=== PATIENT | male | born 1955 | race Caucasian/White ===

== ENCOUNTER 2023-05-16 14:50 | Inpatient (IN) | payer OTHER, MEDICARE, SELFPAY ==
[2023-05-16] VITALS (10 sets, daily range): BP systolic 109–125; BP diastolic 72–82; PULSE 100–130; RESP 14–24; TEMP 36–36.9; O2SAT 94–99; BMI 19.0
--- NOTE | ~2023-05-16 | CT_ITS ---
EXAMINATION: CT abdomen pelvis w con DATE: 05/16/2023 16:18 INDICATION: Abdominal pain. Nausea and vomiting. Recent colonoscopy. TECHNIQUE: Computed tomography (CT) of the abdomen and pelvis was performed with 100 mL Omnipaque 350 intravenous contrast. Automated exposure control and iterative reconstruction technique were employe d. The dose-length product was 410.79 mGy-cm. COMPARISON: None. FINDINGS: The visualized portions of the lung bases demonstrate mild atelectasis. No pleural effusion . The heart size is normal. There are coronary artery calcifications. No pericardial effusion. There are cysts in the liver measuring up to 8 mm. The gallbladder, spleen, pancreas, and adrenal glands ar e normal. There is a small sliding hiatal hernia. There are 2 stones in right kidney measuring up to 4 mm. There is a 4.4 cm cyst in left kidney. The appendix is normal. There are multiple dilated loops of small bowel. In the inferior peritoneum, there is a 16.3 x 5.6 x 4.7 cm fluid collection containi ng foci of gas with adjacent peritoneal thickening and enhancement, consistent with an abscess. There is calcified atherosclerosis of the aorta and many of the other arteries. There are no pathologicall y enlarged lymph nodes. There are bridging endplate osteophytes at multiple levels in the spine, cons istent with diffuse idiopathic skeletal hyperostosis (DISH). There is moderate lumbar spondylosis. IMPRESSION: 1. Abscess in the inferior peritoneum. CT-guided drainage is recommended. 2. Dilated small bowel, consistent with adynamic ileus. Reviewed, dictated and finalized at location B.
--- NOTE | ~2023-05-16 | XR_ITS ---
Supine and upright views of the abdomen Clinical history: Nausea and vomiting Findings: There are multiple dilated loops of small bowel. Left lower quadrant percutaneous drainage catheter present. No free air evident No abnormal mass lesion or calcification is seen. Osseous struc tures are intact. Impression: Dilated small bowel loops could reflect ileus versus small bowel obstruction. Left lower quadrant percutaneous drainage catheter. Reviewed, dictated and finalized at location . Impression: Dilated small bowel loops could reflect ileus versus small bowel obstruction. Left lower quadrant percutaneous drainage catheter.
--- NOTE | ~2023-05-16 | CT_ITS ---
EXAMINATION: CT guide absc cath placement DATE: 05/17/2023 12:45 INDICATION: Pelvic abscess TECHNIQUE: The procedure including the risks and benefits was discussed with the patient. Risks discu ssed included bleeding and infection. The patient understood the risks and benefits and agreed to pro ceed. The patient was confirmed to be receiving appropriate antibiotic coverage. The skin overlying the left buttock was prepped and draped in usual sterile fashion. A gestational sac provided with 50 mcg fentanyl IV. Anesthetic was administered with 1% lidocaine subcutaneously. A 18-gauge trochar ne edle was inserted into the peritoneal fluid collection by transgluteal approach utilizing CT guidance . The inner stylette was removed and a J-wire was advanced through the needle into the fluid collecti on with position confirmed by CT . The needle was removed over the wire and utilizing Seldinger techn ique the tract was serially dilated to 12 [place] and a 12 [place] catheter was inserted into the fluid collection over the wire. After confirmation of positioning by CT the loop was formed and locked and the metal stiffener and wire were removed. The catheter was stitched to the skin with suture. Antibi otic ointment and a sterile dressing were applied. An additional adhesive fixation device was applied . 50 mL of fluid was aspirated and sent to the lab for Gram stain and cultures. The catheter was jakob ched to suction drainage and was draining additional fluid at the conclusion of the procedure. There were no immediate complications. The dose-length product was 204.51 mGy-cm. FINDINGS: CT images demonstrate the catheter within the deep pelvic fluid collection. 50 mL of opaque reddish-pacheco fluid was aspirated for testing. IMPRESSION: 1. Successful CT-guided left transgluteal pelvic abscess drainage catheter placement. 2. 50 mL fluid was sent for aerobic and anaerobic cultures. 3. The catheter will be managed by Dr. Lara. Reviewed, dictated and finalized at location A. IMPRESSION: 1. Successful CT-guided left transgluteal pelvic abscess drainage catheter plac emyuval. 2. 50 mL fluid was sent for aerobic and anaerobic cultures. 3. The catheter will be managed by Dr. Lara.
--- NOTE | ~2023-05-16 | CT_ITS ---
EXAMINATION: CT guide absc cath placement DATE: 05/22/2023 14:38 INDICATION: Left lower quadrant abdominal abscess. TECHNIQUE: The procedure including the risks, benefits, and alternatives was discussed with the patie nt. Risks discussed included bleeding and infection. The patient understood the risks and benefits an d agreed to proceed. The skin overlying the abdomen was prepped and draped in usual sterile fashion. Anesthetic was administered with 1% lidocaine subcutaneously. An 18 gauge trochar needle was inserte d into the left lower quadrant abdominal abscess with CT guidance. The needle was exchanged over a wi re for 6 Nepalese, 8 Nepalese, and 9 Nepalese dilators and then for an 8.5 Nepalese pigtail catheter. The cat heter was stitched to the skin, and a sterile dressing was applied. The dose-length product was 173.7 0 mGy-cm. There were no immediate complications. FINDINGS: CT images demonstrate the catheter within the left lower quadrant abdominal abscess. 5 mL f luid was aspirated for testing. IMPRESSION: 1. Successful CT-guided left lower quadrant abdominal abscess drainage. 2. 5 mL pacheco fluid was sent for aerobic and anaerobic cultures. Reviewed, dictated and finalized at location A.
--- NOTE | ~2023-05-16 | CT_ITS ---
EXAMINATION: CT abdomen pelvis w con DATE: 05/22/2023 09:32 INDICATION: Intra-abdominal abscess. Leukocytosis. TECHNIQUE: Computed tomography (CT) of the abdomen and pelvis was performed with 100 mL Omnipaque 350 intravenous contrast. Automated exposure control and iterative reconstruction technique were employe d. The dose-length product was 662.93 mGy-cm. COMPARISON: CT abdomen and pelvis 05/16/2023 FINDINGS: The visualized portions of the lung bases demonstrate mild atelectasis. There are small ple ural effusions, right worse than left. The heart size is normal. There are coronary artery calcificat ions. No pericardial effusion. There is a small sliding hiatal hernia. There are cysts in the liver m easuring up to 5 mm. The spleen is normal. The gallbladder is normal in size. The pancreas and adrena l glands are normal. There are 2 stones in right kidney measuring up to 4 mm. There is a 3 mm stone i n left kidney. There is a 4.7 cm cyst in left kidney. The prostate is mildly enlarged. There are mult iple dilated loops of small bowel. There is a perisigmoid percutaneous drain. There is a 2.8 x 1.7 x 2.3 cm perirectal abscess. There is a 6.8 x 4.0 x 3.5 cm abscess in left anterior inferior peritoneum . There is a small volume of perihepatic ascites. There is calcified atherosclerosis of the aorta and many of the other arteries. There are no pathologically enlarged lymph nodes. There are bridging end plate osteophytes at multiple levels in the spine, consistent with diffuse idiopathic skeletal hypero stosis (DISH). There is mild chronic anterior wedging of multiple vertebral bodies. There is moderate lumbar spondylosis. IMPRESSION: 1. 6.8 x 4.0 x 3.5 cm abscess in left anterior inferior peritoneum. Consider CT-guided drain placemen t. 2. 2.8 x 1.7 x 2.3 cm perirectal abscess near the perisigmoid drain. 3. Small volume of perihepatic ascites. 4. Dilated loops of small bowel, consistent with adynamic ileus versus partial small bowel obstructio n. Reviewed, dictated and finalized at location A. IMPRESSION: 1. 6.8 x 4.0 x 3.5 cm abscess in left anterior inferior peritoneum. Consider CT -guided drain placement. 2. 2.8 x 1.7 x 2.3 cm perirectal abscess near the perisigmoid drain. 3. Small volume of perihepatic ascites. 4. Dilated loops of small bowel, consistent with adynamic ileus versus partial small bowel obstruction.
--- NOTE | 2023-05-16 15:17 | ECG_ITS ---
Rate 125 MO 143 QRSd 92 QT 322 QTc 465 --Embarrass-- P 58 QRS 14 T 85 SINUS TACHYCARDIA NONSPECIFIC T-WAVE ABNORMALITY ABNORMAL RHYTHM ECG Electronically Signed On 05-17-2023 8:48:12 CDT by Jennifer Sloan M.D. NO PREVIOUS ECG AVAILABLE FOR COMPARISON [facility]
--- NOTE | 2023-05-16 15:26 | ED.ABDPAIN ---
HPI - Abdominal Pain General Chief Complaint: Abdominal Pain Stated Complaint: Unspecified Time Seen by Provider: 05/16/23 15:22 History of Present Illness HPI narrative: Patient is a 68-year-old male with history of hypertension, hyperlipidemia here with abdominal pain. Patient had a colonoscopy 2 days ago on 05/14 at [facility], where they resected two polyps. Patient states that after the anesthesia felt fairly well, passed some flatulence and then attempted to go to the bathroom. He states he was sitting on the toilet and then suddenly and felt significant diffuse abdominal pain, diaphoresis and felt like she was going to fall off of the toilet. He denies any bowel movement at that time. He states that he went to the emergency department yesterday due to continuation of significant pain. Their CT was performed, identified some mesenteric adenitis and started patient on Cipro, Flagyl and discharged home. Today the pain worsened he had minimal urine output. He goes primary care doctor they referred him in here to the emergency department for evaluation. No fever, has had chills. His last p.o. intake was around 1:00 a.m. when he attempted to eat a popsicle but then immediately threw up. No prior abdominal surgeries. Related Data Allergies Allergy/AdvReac Type Severity Reaction Status Date / Time No Known Allergies Allergy Verified 05/16/23 15:40 Review of Systems Review of Systems: CONSTITUTIONAL: denies fever, has had chills and sweats. EYES: Denies visual changes, redness, or discharge. ENT: Denies rhinorrhea, congestion, sore throat, or otalgia. CARDIOVASCULAR: Denies chest pain, palpitations, or edema. RESPIRATORY: Denies cough or dyspnea. GASTROINTESTINAL: abdominal pain, nausea, vomiting, no diarrhea. GENITOURINARY: Denies dysuria or hematuria. SKIN: Denies rash or itching. MUSCULOSKELETAL: Denies back pain, joint pain, or myalgia. NEUROLOGIC: Denies headache, numbness, or weakness. PSYCHIATRIC: Denies anxiety or depression. Exam Narrative: GENERAL: Well-appearing, well-nourished, and in no acute distress. HEAD: Normocephalic, atraumatic. EYES: PERRLA and EOMI. ENT: Nares clear, no rhinorrhea or epistaxis. Mucous membranes moist. NECK: Supple. CHEST: Clear to auscultation. No respiratory distress. HEART: Tachycardia. No murmur heard. Normal peripheral pulses. ABDOMEN: Distended abdomen, diffusely tender with guarding EXTREMITIES: Normal range of motion. No edema. SKIN: Warm, dry, no rash. NEURO: No focal deficits. Alert and oriented x3. PSYCH: Normal mood and affect. Course Course Emergency Course: Chart review performed. I did speak with patient's PCP prior to transfer as well. Patient had colonoscopy at [place] 2 days ago, was seen post operatively for pain, started on antibiotics. Given continued pain and no talent acquisition administrator surgeon after 5 PM should one be needed, he was referred to this hospital instead of [facility]. Triage vitals show heart rate of 127, normotensive. Patient seen evaluated, and significant pain. Abdomen distended, diffusely tender. Concern for possible perforation versus intra-abdominal infectious process. Pain medications are Ativan ordered as well as IV fluid resuscitation. CT abdomen pelvis ordered. Lab work reviewed, white blood cell count of 14.3, creatinine of 1.7, unknown baseline. Lactic of 2.5. Troponin negative. CT shows intraperitoneal abscess and ileus. Will talk with surgery talent acquisition administrator. Zosyn, additional pain meds, additional IVF ordered. Spoke with Dr. Lara, recommends admission, will talk with hospitalist. Patient and updated on plan of care and agreeable. Spoke with Shaye of hospitalist service who accepts the patient for admission. Consultations Consultation #1: Spoke with Dr. Lara, talent acquisition administrator for general surgery. Recommends patient remain NPO. He is going to discuss case with IR and see if someone could place a drain tonight if not tomorro
[2023-05-16] MEDS: MORPHINE SULFATE (*CRX) 4 MG/ML INJ IV PUSH ×2 (15:37→17:56)
[2023-05-16] MEDS: ONDANSETRON INJ 4 MG/2 ML VIAL IV PUSH ×3 (15:37→21:51)
[2023-05-16] MEDS: Please add drug allergy info to patient profile. 1 EACH XX (15:38)
[2023-05-16] MEDS: SODIUM CHLORIDE 0.9% IV 1,000 ML 999 ML IV CONT ×2 (15:38→17:56)
[2023-05-16 15:51] LABS: Hematocrit 39.1 % (42.0-52.0); Hemoglobin 13.3 g/dL (14.0-18.0); Mean Corpuscular Hemoglobin 31.4 pg (26-34); Mean Corpuscular Volume 92.4 fl (80-100); Mean Platelet Volume 10.8 fl (7.4-10.4); Platelet Count Result 198 k/mm3 (150-375); Red Blood Count 4.23 M/mm3 (4.6-6.20); Red Cell Distribution Width 13.5 % (11.5-14.5); White Blood Count 14.3 K/mm3 (4.5-10.0)
[2023-05-16 16:01] LABS: Alanine Aminotransferase 24 U/L (6-50); Albumin Level 3.8 g/dL (3.5-5.1); Alkaline Phosphatase 49 U/L (38-126); Anion Gap 11 mmol/L (8-16); Aspartate Amino Transferase 30 U/L (17-59); Bilirubin,Total 0.8 mg/dL (0.2-1.3); Blood Urea Nitrogen 92 mg/dL (9-20); Calcium 8.9 mg/dL (8.4-10.2); Carbon Dioxide 26 mmol/L (22-30); Chloride 96 mmol/L (98-107); Estimated CRCL calculation 44 ml/min; Estimated Glomerular Filt Rate 41; Glucose 138 mg/dL (65-110); Lactic Acid Reflex 2.5 mmol/L (0.7-2.0); Lipase 79 U/L (23-300); Potassium 3.6 mmol/L (3.4-5.0); Sodium 133 mmol/L (137-145)
[2023-05-16 16:02] LABS: INR 1.3; Prothrombin Time 16.7 Seconds (11.1-14.7)
[2023-05-16 16:03] LABS: Partial Thromboplastin Time 32.6 SECONDS (22.3-36.8)
[2023-05-16 16:12] LABS: Troponin I < 0.012 ng/mL (0.000-0.034)
[2023-05-16 16:22] LABS: Band Neutrophils Percent 2 % (0-6); Burr Cells 1+ (NORMAL); Lymphocytes Absolute Manual 1.85 K/mm3 (1.1-4.5); Monocytes Absolute Manual 0.57 K/mm3 (0.1-0.90); Monocytes Percent Manual 4 % (3-9); Neutrophils Absolute Manual 11.86 K/mm3 (1.3-6.7); Neutrophils Percent Manual 81 % (46-73); Platelet Estimate Adequate (Adequate); Schistocytes None Seen (NORMAL); Total Cells Counted 100
[2023-05-16 17:51] LABS: Appearance Urine Clear (Clear); Bacteria Urine None Seen /hpf; Bilirubin Urine Negative (Negative); Blood Urine Negative (Negative); Color Urine Yellow (Yellow); Glucose Urine UA Negative (Negative); Hyaline Casts Urine Present /lpf; Ketones Urine Negative (Negative); Leukocyte Esterase Ur Trace LEU/UL (Negative); Need Manual Microscopic Reviewed; Nitrate Urine Negative (Negative); Protein Urine 1+ mg/dL (Negative); RBC Urine 0-2 /hpf (0-2); Specific Grav Ur 1.034 (1.001-1.035); Squamous Epithelial Cell Urine None seen /hpf (Few); Urobilinogen Urine 0.2 mg/dL (<2.0); WBC Urine 0-5 /hpf
[2023-05-16 17:57] LABS: Add Urine Microscopic? YES
[2023-05-16] MEDS: PIPERACILLIN/TAZ 4.5G/NS 100ML 4.5 GM/100 ML BAG IVPB (18:24)
[2023-05-16 18:45] LABS: Reflex Lactic Acid Yes or No Add Lactic
[2023-05-16 19:10] LABS: Lactic Acid 1.5 mmol/L (0.7-2.0)
--- NOTE | 2023-05-16 19:38 | ADMGEN ---
This patient, Robin Pickering, was admitted to [facility] Surg Room 315-01. Patient/family oriented to hospital policies and general routines including ID bracelet, bed and alarms, visiting hours, pain management, procedures, bathroom and other care routines, personal items, smoking policy, room service/diet, and visiting hours. Information on how to activate the Rapid Response Team has been discussed. Patient/Family are encouraged to report perceived risks to care and to ask questions if they do not understand what they are told or what they should do.
--- NOTE | 2023-05-16 20:38 | PM.IMHP ---
H&P: HPI History of Present Illness Date/Time: 05/16/23 20:38 Chief Complaint: Abdominal pain Narrative: This is a 68-year-old male patient who recently had a colonoscopy 2 days ago on 05/14 at [facility]. The patient had 2 polyps removed at that time. The patient has a history of hyperlipidemia and hypertension. After his procedure the patient felt fairly well and was passing lot of gas then attempted to go to the bathroom. The patient was sitting on the toilet and suddenly felt significant diffuse abdominal pain the patient became diaphoretic and felt like he was on fall off the toilet onto the floor. The patient denies any bowel movement since that time. The patient went to the emergency room yesterday due to these significant pains a CT was performed and it showed a mesenteric adenitis and the patient was started on Cipro and Flagyl and discharged to home. His pain became worse and had decreased urine output as well. He called his primary care doctor who referred him to the emergency department. The him that he drink anything was around this morning. He denies any previous renal failure. The patient has been on lisinopril with hydrochlorothiazide. The patient has been nauseated as well. His white count is 14.3. H&H is 13.3 and 39.1. BUN is 92 creatinine is 1.7. No previous labs for comparison. His lactic was 2.5 and is now 1.5. Troponin is negative. Urine was negative. Abdominal pelvis CT was read as abscess inferior peritoneal CT-guided drainage is recommended. Dilated small bowel, consistent with adynamic ileus. Surgery has been consulted and suggested that IR drain the abscess. The patient was given IV fluids, morphine, Zofran, and Zosyn. The patient is being admitted to observation status on the date of service 05/16/2023 Review of Systems Review of Systems: All systems reviewed & are unremarkable except as noted in HPI and below Constitutional: Constitutional: Reports as per HPI and Reports no additional constitutional complaints Eyes: Eyes: Reports as per HPI and Reports no additional eye complaints ENT: Reports system reviewed and no additional complaints, except as documented and Reports Normal hearing present Cardiovascular: Cardiovascular: Reports no additional cardiovascular complaints Respiratory: Respiratory: Reports no additional respiratory complaints and Reports no additional respiratory complaints Gastrointestinal: Gastrointestinal: Reports as per HPI and Reports no additional gastrointestinal complaints Musculoskeletal: Musculoskeletal: Reports no additional musculoskeletal complaints Integumentary/Breasts: Skin/Breast: Reports system reviewed and no additional complaints, except as docu and Reports as per HPI Neurologic: Reports system reviewed and no additional complaints, except as documented, Reports as per HPI and Reports Normal hearing present Psychiatric: Psychiatric: Reports no additional psychiatric complaints and Reports as per HPI Endocrine: Endocrine: Reports no additional endocrine complaints Hematologic/Lymphatic: Hematologic/Lymphatic: Reports no additional hematologic/lymphatic complaints Allergic/Immunologic: Allergic/Immunologic: Reports no additional allergic/immunologic complaints [facility] Past Medical History Medical History (Updated 05/16/23 @ 21:30 by Shaye Mckeon NP) Hyperlipidemia Hypertension Surgical History Surgical History (Updated 05/16/23 @ 21:30 by Shaye Mckeon NP) H/O colonoscopy with polypectomy History of extraction of renal calculus History of total knee arthroplasty Bilateral Family History Family History (Updated 05/16/23 @ 20:55 by Kori Reed RN) Mother Chronic obstructive pulmonary disease Father Liver cancer Social History Social History (Updated 05/16/23 @ 21:31 by Shaye Mckeon NP) Social History: The patient is and lives with his . They have 1 child together. He is retired. His
[2023-05-16] MEDS: MORPHINE SULFATE (*CRX) 2 MG/ML INJ IV PUSH (21:50)
[2023-05-16] MEDS: LACTATED RINGERS 1,000 ML 100 ML IV CONT (21:51)
[2023-05-17] VITALS (31 sets, daily range): BP systolic 101–140; BP diastolic 57–89; PULSE 85–125; RESP 12–30; TEMP 36.1–37.5; O2SAT 92–99
[2023-05-17] MEDS: MORPHINE SULFATE (*CRX) 2 MG/ML INJ IV PUSH ×5 (02:51→20:49)
[2023-05-17] MEDS: ONDANSETRON INJ 4 MG/2 ML VIAL IV PUSH ×3 (02:51→20:49)
[2023-05-17] MEDS: LACTATED RINGERS 1,000 ML 150 ML IV CONT (04:37)
[2023-05-17 06:04] LABS: Hematocrit 31.4 % (42.0-52.0); Hemoglobin 10.5 g/dL (14.0-18.0); Mean Corpuscular HGB Conc 33.4 g/dl (32-36); Mean Corpuscular Hemoglobin 31.5 pg (26-34); Mean Corpuscular Volume 94.3 fl (80-100); Mean Platelet Volume 10.1 fl (7.4-10.4); Platelet Count Result 152 k/mm3 (150-375); Red Blood Count 3.33 M/mm3 (4.6-6.20); Red Cell Distribution Width 13.7 % (11.5-14.5); White Blood Count 11.6 K/mm3 (4.5-10.0)
[2023-05-17 06:16] LABS: Lactic Acid Reflex 1.5 mmol/L (0.7-2.0)
[2023-05-17 06:20] LABS: Alanine Aminotransferase 19 U/L (6-50); Albumin Level 2.9 g/dL (3.5-5.1); Alkaline Phosphatase 43 U/L (38-126); Anion Gap 1 mmol/L (8-16); Aspartate Amino Transferase 21 U/L (17-59); Bilirubin,Total 0.7 mg/dL (0.2-1.3); Blood Urea Nitrogen 62 mg/dL (9-20); Calcium 8.1 mg/dL (8.4-10.2); Carbon Dioxide 31 mmol/L (22-30); Chloride 103 mmol/L (98-107); Estimated CRCL calculation 43 ml/min; Estimated Glomerular Filt Rate 51; Glucose 123 mg/dL (65-110); Magnesium 2.1 mg/dL (1.6-2.3); Potassium 3.4 mmol/L (3.4-5.0); Sodium 135 mmol/L (137-145)
[2023-05-17 06:42] LABS: Band Neutrophils Percent 13 % (0-6); Burr Cells 1+ (NORMAL); Eosinophils Absolute Manual 0.23 K/mm3 (0.02-0.5); Eosinophils Percent Manual 2 % (0-4); Lymphocytes Absolute Manual 0.34 K/mm3 (1.1-4.5); Monocytes Absolute Manual 1.27 K/mm3 (0.1-0.90); Monocytes Percent Manual 11 % (3-9); Neutrophils Absolute Manual 9.74 K/mm3 (1.3-6.7); Neutrophils Percent Manual 71 % (46-73); Platelet Estimate Adequate (Adequate); Schistocytes None Seen (NORMAL); Total Cells Counted 100
--- NOTE | 2023-05-17 10:41 | WPDMODSED ---
Moderate Sedation Note-Pt Data Patient Data Diagnosis: pelvic abscess Present Complaint: abdominal pain and nausea Procedure to be performed/Plan: pelvic abscess drain placement Allergies Allergy/AdvReac Type Severity Reaction Status Date / Time No Known Allergies Allergy Verified 05/16/23 15:40 Home Medications Medication Instructions Recorded Confirmed Type atorvastatin 40 mg tablet (Lipitor) 40 mg PO HS 05/16/23 05/16/23 History atorvastatin 40 mg tablet (Lipitor) 40 mg PO HS 05/16/23 05/16/23 History lisinopril 20 1 tablet PO HS 05/16/23 05/16/23 History mg-hydrochlorothiazide 25 mg tablet lisinopril-hydrochlorothiazide 1 mg BYMOUTH HS 05/16/23 05/16/23 History loratadine 10 mg tablet (Allergy 1 mg PO DAILY 05/16/23 05/16/23 History Relief (loratadine)) loratadine 10 mg tablet (Claritin) 10 mg PO DAILY 05/16/23 05/16/23 History Current Medications: Active Medications Acetaminophen (Acetaminophen 325 Mg Tablet) 650 mg PO Q6H PRN PRN Reason: Mild Pain (1-3) or Fever Lactated Ringer's (Lr - Lactated Ringers Iv) 1,000 mls @ 100 mls/hr IV CONT .Q10H POOJA Last Admin: 05/17/23 09:37 Dose: Not Given Piperacillin/Tazobactam/Dextrose (Zosyn 3.375 Gm/Ns 50 Ml) 3.375 gm in 50 mls @ 100 mls/hr IVPB Q6HR POOJA Morphine Sulfate (Morphine Sulfate (*Crx) 2 Mg/Ml Inj) 2 mg IV PUSH Q4H PRN PRN Reason: Pain Rated 7-10 Last Admin: 05/17/23 07:07 Dose: 2 mg Ondansetron HCl (Ondansetron Inj 4 Mg/2 Ml Vial) 4 mg IV PUSH Q4H PRN PRN Reason: Nausea And Vomiting Last Admin: 05/17/23 07:07 Dose: 4 mg Sedation/Anesthesia: No previous sedation/anesthesia problems (including family history). PMFSH Past Medical History Medical History (Updated 05/16/23 @ 21:30 by Shaye Mckeon NP) Hyperlipidemia Hypertension Surgical History Surgical History (Updated 05/16/23 @ 21:30 by Shaye Mckeon NP) H/O colonoscopy with polypectomy History of extraction of renal calculus History of total knee arthroplasty Bilateral Family History Family History (Updated 05/16/23 @ 20:55 by Kori Reed RN) Mother Chronic obstructive pulmonary disease Father Liver cancer Social History Social History (Updated 05/16/23 @ 21:31 by Shaye Mckeon NP) Social History: The patient is and lives with his . They have 1 child together. He is retired. His is the durable power lacing cutter for healthcare. Code status full code Smoking status: Never smoker Alcohol intake: never Substance use: never Lack of Transportation: No Lack of Food: Never True Current Housing: I Have Housing Concerned About Future Housing: No Difficulty Paying Gas/Electric Bills: No Difficulty Paying for Meds: No Currently Unemployed: No Education: High School Diploma/GED Difficulty w/ Childcare or Family Care: No Spiritual care concerns: No Mod Sed Physical Exam Physical Exam Pre Procedural Exam: Normal: Appearance, Lungs, Heart Rate and Heart Rhythm and Variation: Throat (dry mucous membranes) and Abdomen (TTP) Hours since solid foods: 24 Hours since liquid intake: 24 Mallampati Classification: class III Internal Medicine - PN: Obj Da Vital Signs Vital Signs: Vital Signs - 24 hr 05/16/23 14:50 05/16/23 16:42 05/16/23 15:41 Temperature 98.4 F Pulse Rate 127 H 118 H 130 H Respiratory Rate 24 H 18 22 H Blood Pressure 125/82 Pulse Oximetry 96 96 98 Oxygen Delivery Room Air 05/16/23 15:45 05/16/23 16:05 05/16/23 18:25 Temperature Pulse Rate 118 H 107 H 106 H Respiratory Rate 19 18 14 Blood Pressure 109/81 115/72 Pulse Oximetry 94 98 99 Oxygen Delivery 05/16/23 19:27 05/16/23 20:00 05/16/23 22:00 Temperature 96.8 F L Pulse Rate 100 108 H 108 H Respiratory Rate 15 14 Blood Pressure 115/75 112/73 Pulse Oximetry 99 98 Oxygen Delivery 05/16/23 20:54 05/17/23 04:00 05/17/23 06:00 Temperature 96.9 F L Pulse Rate 129 H 93 96 Resp
--- NOTE | 2023-05-17 11:34 | PM.IMPN ---
Progress Note: A&P Assessment and Plan (1) Abscess, intra-abdominal, postoperative: Code(s): T81.43XA - Infection following a procedure, organ and space surgical site, initial encounter Status: Acute Assessment and Plan: CT-guided drainage catheter placed and patient is on IV Zosyn. General surgery on board as well as Interventional Radiology. (2) AALIYAH (acute kidney injury): Code(s): N17.9 - Acute kidney failure, unspecified Status: Acute Assessment and Plan: Likely related to recent bowel prep and relative NPO status prior to hospitalization. Improving after IV fluids given in the emergency department. Continue to trend. Continue IV fluids until patient tolerating normal (3) Hypertension: Code(s): I10 - Essential (primary) hypertension Status: Acute Assessment and Plan: Home medications on hold continue to monitor. (4) Hyperlipidemia: Code(s): E78.5 - Hyperlipidemia, unspecified Status: Acute Assessment and Plan: Home medications but will restart whenever tolerating diet. Plan Pain control post CT-guided drainage she placement. Further intervention deferred to surgery. Time Spent With Patient Time with patient: 15 - 25 minutes Subjective Date/time seen: 05/17/23 13:45 Interval history: 05/17: Patient admitted yesterday for intra-abdominal abscess, possibly related to recent colonoscopy. He went to Interventional Radiology for CT-guided drainage catheter placement. Patient complaining of significant pain and nausea after procedure. Due to pain patient not interested in further evaluation or questions until his pain is controlled. I spoke to patient's regarding typical course of care for the situations. Deferred to General surgery for further dispo planning. Review of Systems Review of Systems: ROS unobtainable: Yes unobtainable due to medical condition Exam Narrative: GENERAL: Patient arriving to the floor from procedure in significant discomfort not wanting to participate in exam at this time HEENT: Covered with towel due to nausea NECK: The patient has no noted JVD. CHEST/LUNGS: Lungs are clear bilaterally without rhonchi, rales, or wheezes. HEART: The patient has mildly tachycardic rate and regular rhythm. No murmurs, rubs, or gallops are appreciated. ABDOMEN: The patient?s abdomen is tender to palpation, remaining assessment deferred at this time EXTREMITIES: The patient has no peripheral edema. SKIN: No significant bleeding wounds PSYCHIATRIC: The patient is upset regarding pain NEUROLOGIC: Awake, uncomfortable, moving all extremities Objective Data Vital Signs Vital Signs: Vital Signs - 24 hr 05/16/23 14:50 05/16/23 16:42 05/16/23 15:41 Temperature 36.9 C Pulse Rate 127 H 118 H 130 H Respiratory Rate 24 H 18 22 H Blood Pressure 125/82 Pulse Oximetry 96 96 98 Oxygen Delivery Room Air 05/16/23 15:45 05/16/23 16:05 05/16/23 18:25 Temperature Pulse Rate 118 H 107 H 106 H Respiratory Rate 19 18 14 Blood Pressure 109/81 115/72 Pulse Oximetry 94 98 99 Oxygen Delivery 05/16/23 19:27 05/16/23 20:00 05/16/23 22:00 Temperature 36.0 C L Pulse Rate 100 108 H 108 H Respiratory Rate 15 14 Blood Pressure 115/75 112/73 Pulse Oximetry 99 98 Oxygen Delivery 05/16/23 20:54 05/17/23 04:00 05/17/23 06:00 Temperature 36.1 C L Pulse Rate 129 H 93 96 Respiratory Rate 16 Blood Pressure 115/57 L Pulse Oximetry 98 Oxygen Delivery Intake/Output Intake/Output: Intake & Output 05/14/23 05/15/23 05/16/23 05/17/23 23:59 23:59 23:59 23:59 Intake Total 2100 Balance 2100 Meds/Results Medications: Active Medications Generic Name Dose Route Start Last Admin Trade Name Freq PRN Reason Stop Dose Admin Acetaminophen 650 mg 05/16/23 21:37 Acetaminophen 325 Mg Tablet PO Q6H PRN Mild Pain (1-3) or Fever Lactated Ringer's 1,000 mls @ 100 mls/hr 08
[2023-05-17] MEDS: PIPERACILLN/TAZ 3.375GM/NS50ML 3.375 GM/50 ML BAG IVPB ×3 (13:02→23:25)
--- NOTE | 2023-05-17 13:46 | PC.NURSE ---
RN to assist at bedside medication administration in CT for drain placement. RN received report via telephone from WILMER Petit with the med-surg department at 1015. Past medical history, last set of vitals, current assessment and all medications given was reported. Patient has been NPO.
--- NOTE | 2023-05-17 13:52 | PC.NURSE ---
RN present at bedside in CT room with patient at 1020 to assist with medication administration for percutaneous drain placement. RN to set up vital sign monitoring and continuous capnography. RN preformed head to toe assessment at bedside and verified patient by asking name and .
--- NOTE | 2023-05-17 13:54 | PC.NURSE ---
50 mcg of Fentanyl given IV push at 1120 per Verbal orders at bedside per Dr. Magdaleno. Respiratory rate noted to be 18, SPO2 92% on 2L NC and EtCO2 noted to be 31 mmHg.
--- NOTE | 2023-05-17 13:57 | PC.NURSE ---
Percutaneous drain placement done at 1156. RN to continue monitoring patients vitals and EtCO2. Patient awake, and oriented at this time.
--- NOTE | 2023-05-17 14:00 | PC.NURSE ---
Patient brought back to med-surg department at 1239 via bed. Bedside report handed off to WILMER Petit. Marisabel to resume patient care.
--- NOTE | 2023-05-17 14:39 | PM.CNGS ---
Assessment and Plan Assessment and plan (1) Abscess, intra-abdominal, postoperative: Code(s): T81.43XA - Infection following a procedure, organ and space surgical site, initial encounter Status: Acute Assessment and Plan: I have reviewed the CT and discussed the findings with the patient. He has evidence of a bowel perforation from his colonoscopy 2 days ago at an outside facility. The infection appears to be walled off as an early abscess and was successfully percutaneously drained by Interventional Radiology today. Will continue to monitor with serial abdominal exams and continue IV Zosyn and bowel rest. Repeat CBC tomorrow. Discussed with patient that if he is not showing any signs of improvement, will have to consider urgent surgical intervention. This could include bowel resection and even could include open surgery or a temporary ostomy. (2) Perforation of colon as colonoscopy complication: Code(s): K63.1 - Perforation of intestine (nontraumatic); K91.71 - Accidental puncture and laceration of a digestive system organ or structure during a digestive system procedure Status: Acute (3) AALIYAH (acute kidney injury): Code(s): N17.9 - Acute kidney failure, unspecified Status: Acute (4) Hypertension: Code(s): I10 - Essential (primary) hypertension Status: Acute History of Present Illness Consult details Consult date: 05/17/23 Reason for consult: other (Bowel perforation) Requesting physician: Helena Fischer MD Narrative: This is a 68-year-old man who I am asked to see for a complication after recent colonoscopy. He presented to the emergency department on 05/16/2023 with severe diffuse abdominal pain. He reportedly had undergone colonoscopy at [facility] on 05/14/2023. He states he began experiencing pain within an hours the procedure. He had 2 polyps removed, but I do not have the full report available to me here. He was having the colonoscopy done simply as a screening. He was not complaining of any hematochezia, melena, or bowel problems leading up to this. He had gone to the emergency department at [place] on 05/15/[address] at that time showed possible enteritis. He was sent home from the ER on Cipro and Flagyl. He then decided to come to our ER when he was not feeling any better. A CT was done in the emergency department and this showed evidence of an abscess in the inferior peritoneum and dilated bowel consistent with adynamic ileus. Exact site of bowel perforation was not evident on the CT. He has been admitted to the hospital and placed on IV Zosyn. CT-guided drainage of the abscess was performed by Interventional Radiology earlier today. Patient states he is still experiencing significant abdominal pain. He is thirsty, but is still experiencing nausea. He denies any fevers. Review of Systems Review of Systems: All systems reviewed & are unremarkable except as noted in HPI and below Eyes: Eyes: Denies change in vision ENT: Denies hearing loss, Denies neck pain and Denies sore throat Cardiovascular: Cardiovascular: Denies chest pain and Denies dyspnea Respiratory: Respiratory: Denies cough, Denies dyspnea and Denies wheezing Gastrointestinal: Gastrointestinal: Reports as per HPI Genitourinary: Genitourinary: Denies hematuria and Denies dysuria Musculoskeletal: Musculoskeletal: Denies arthralgias, Denies joint swelling and Denies neck pain Allergic/Immunologic: Allergic/Immunologic: Denies wheezing [facility] Past Medical History Medical History (Updated 05/17/23 @ 14:45 by Kirill Lara DO) Hyperlipidemia Hypertension Surgical History Surgical History (Updated 05/16/23 @ 21:30 by Shaye Mckeon NP) H/O colonoscopy with polypectomy History of extraction of renal calculus History of total knee arthroplasty Bilateral Family History Family History (Updated 05/16/23 @ 20:55 by Kori Reed RN) Mother Chronic obstructiv
[2023-05-17] MEDS: ACETAMINOPHEN 325 MG TABLET 650 MG PO (22:06)
[2023-05-18] VITALS (11 sets, daily range): BP systolic 113–127; BP diastolic 59–70; PULSE 76–102; RESP 16–20; TEMP 36.8–37.6; O2SAT 94–98
[2023-05-18] MEDS: ONDANSETRON INJ 4 MG/2 ML VIAL IV PUSH ×3 (01:13→20:35)
[2023-05-18] MEDS: MORPHINE SULFATE (*CRX) 2 MG/ML INJ IV PUSH ×3 (01:13→09:00)
[2023-05-18] MEDS: LACTATED RINGERS 1,000 ML 150 ML IV CONT ×3 (02:29→20:44)
[2023-05-18] MEDS: PIPERACILLN/TAZ 3.375GM/NS50ML 3.375 GM/50 ML BAG IVPB ×3 (05:03→17:18)
[2023-05-18 06:22] LABS: Basophils Percent Auto 0.2 % (0.2-1.2); Eosinophils Absolute Auto 0.1 K/mm3 (0-0.3); Eosinophils Percent Auto 0.6 % (0-4.4); Hematocrit 28.2 % (42.0-52.0); Hemoglobin 9.1 g/dL (14.0-18.0); Immature Granulocyte Absolute 0.11 K/mm3 (0.00-0.031); Immature Granulocyte Percent A 1.2 % (0-0.5); Lymphocytes Absolute Auto 0.94 K/mm3 (0.9-3.2); Lymphocytes Percent Auto 10.5 % (18.3-44.2); Mean Corpuscular HGB Conc 32.3 g/dl (32-36); Mean Corpuscular Hemoglobin 30.8 pg (26-34); Mean Corpuscular Volume 95.6 fl (80-100); Mean Platelet Volume 9.9 fl (7.4-10.4); Monocytes Absolute Auto 0.5 K/mm3 (0.1-0.6); Neutrophils Absolute Auto 7.3 K/mm3 (1.3-6.7); Neutrophils Percent Auto 81.5 % (45.5-73.1); Platelet Count Result 138 k/mm3 (150-375); Red Blood Count 2.95 M/mm3 (4.6-6.20); Red Cell Distribution Width 13.9 % (11.5-14.5)
[2023-05-18 06:36] LABS: Sodium 139 mmol/L (137-145)
[2023-05-18 06:40] LABS: Anion Gap -1 mmol/L (8-16); Blood Urea Nitrogen 36 mg/dL (9-20); Calcium 8.2 mg/dL (8.4-10.2); Carbon Dioxide 32 mmol/L (22-30); Chloride 108 mmol/L (98-107); Estimated CRCL calculation 50 ml/min; Estimated Glomerular Filt Rate > 60; Glucose 123 mg/dL (65-110); Potassium 3.6 mmol/L (3.4-5.0)
--- NOTE | 2023-05-18 09:55 | PM.PNGS ---
Progress Note: A&P Assessment and Plan (1) Abscess, intra-abdominal, postoperative: Code(s): T81.43XA - Infection following a procedure, organ and space surgical site, initial encounter Status: Acute Assessment and Plan: Showing signs of improvement. Will start clear liquids today. Continue Zosyn and monitor drain output. (2) Perforation of colon as colonoscopy complication: Code(s): K63.1 - Perforation of intestine (nontraumatic); K91.71 - Accidental puncture and laceration of a digestive system organ or structure during a digestive system procedure Status: Acute (3) AALIYAH (acute kidney injury): Code(s): N17.9 - Acute kidney failure, unspecified Status: Acute (4) Hypertension: Code(s): I10 - Essential (primary) hypertension Status: Acute Subjective Subjective Date/Time Seen: 05/18/23 09:55 Interval history: Pain improving. Minimal nausea. Passing flatus. Exam GI: Inspection: non-distended GI Palp: Yes Soft to palpation, Yes Tenderness to palpation present (GI) (RLQ), No Guarding due to palpation present (GI) and No Rebound tenderness present Other: Pigtail drain with minimal purulent output Objective Data Vital Signs Vital Signs: Vital Signs - 24 hr 05/17/23 11:56 05/17/23 10:29 05/17/23 10:29 Temperature Pulse Rate 98 Pulse Rate [Apical] 108 H 98 Respiratory Rate 12 25 H 25 H Blood Pressure 135/82 Blood Pressure [Left Arm] 119/60 Pulse Oximetry 99 97 97 Oxygen Delivery Nasal Cannula Room Air Oxygen Flow Rate 2 05/17/23 10:33 05/17/23 10:29 05/17/23 12:00 Temperature Pulse Rate 98 Pulse Rate [Apical] 97 115 H Respiratory Rate 20 25 H Blood Pressure Blood Pressure [Left Arm] 129/75 108/61 Pulse Oximetry 97 99 Oxygen Delivery Room Air Room Air Oxygen Flow Rate 05/17/23 12:05 05/17/23 12:10 05/17/23 12:15 Temperature Pulse Rate Pulse Rate [Apical] 116 H 125 H 106 H Respiratory Rate 20 24 H 30 H Blood Pressure Blood Pressure [Left Arm] 120/64 125/80 131/86 Pulse Oximetry 97 98 94 Oxygen Delivery Room Air Room Air Room Air Oxygen Flow Rate 05/17/23 12:20 05/17/23 12:26 05/17/23 10:33 Temperature Pulse Rate 99 Pulse Rate [Apical] 108 H 109 H Respiratory Rate 22 H 23 H 20 Blood Pressure 129/75 Blood Pressure [Left Arm] 140/84 135/89 Pulse Oximetry 99 98 97 Oxygen Delivery Room Air Room Air Oxygen Flow Rate 05/17/23 10:59 05/17/23 11:00 05/17/23 11:18 Temperature Pulse Rate 105 H 111 H 109 H Pulse Rate [Apical] Respiratory Rate 14 18 23 H Blood Pressure 111/64 116/61 113/63 Blood Pressure [Left Arm] Pulse Oximetry 93 95 93 Oxygen Delivery Oxygen Flow Rate 05/17/23 11:20 05/17/23 11:25 05/17/23 11:30 Temperature Pulse Rate 108 H 107 H 108 H Pulse Rate [Apical] Respiratory Rate 18 21 H 19 Blood Pressure 117/64 103/59 L 101/62 Blood Pressure [Left Arm] Pulse Oximetry 92 95 96 Oxygen Delivery Oxygen Flow Rate 05/17/23 11:35 05/17/23 11:40 05/17/23 11:45 Temperature Pulse Rate 106 H 106 H 105 H Pulse Rate [Apical] Respiratory Rate 18 24 H 24 H Blood Pressure 108/59 L 121/64 117/65 Blood Pressure [Left Arm] Pulse Oximetry 98 98 98 Oxygen Delivery Oxygen Flow Rate 05/17/23 11:50 05/17/23 11:55 05/17/23 12:00 Temperature Pulse Rate 111 H 114 H 115 H Pulse Rate [Apical] Respiratory Rate 20 24 H 25 H Blood Pressure 115/67 116/59 L 108/61 Blood Pressure [Left Arm] Pulse Oximetry 99 99 99 Oxygen Delivery Oxygen Flow Rate 05/17/23 12:05 05/17/23 12:10 05/17/23 12:15 Temperature Pulse Rate 116 H 125 H 106 H Pulse Rate [Apical] Respiratory Rate 20 24 H 30 H Blood Pressure 120/64 125/80 131/86 Blood Pressure [Left Arm] Pulse Oximetry 97 98 94 Oxygen Delivery Oxygen Flow Rate 05/17/23 12:20 05/17/23 12:26 05/17/23 10:59 Temperature Pulse Rate 108 H 109 H
--- NOTE | 2023-05-18 13:29 | PM.IMPN ---
Progress Note: A&P Assessment and Plan (1) Abscess, intra-abdominal, postoperative: Code(s): T81.43XA - Infection following a procedure, organ and space surgical site, initial encounter Status: Acute Assessment and Plan: CT-guided drainage catheter placed and patient is on IV Zosyn. General surgery on board as well as Interventional Radiology. 05/18: Pigtail drainage catheter in place, pain improved, passing gas (2) AALIYAH (acute kidney injury): Code(s): N17.9 - Acute kidney failure, unspecified Status: Acute Assessment and Plan: 05/17: Likely related to recent bowel prep and relative NPO status prior to hospitalization. Improving after IV fluids given in the emergency department. Continue to trend. Continue IV fluids until patient tolerating normal 05/18: Much improved with serum creatinine 1.2 BUN 36 and estimated GFR greater than 60. IV fluids decreased and patient allowed a clear liquid diet (3) Hypertension: Code(s): I10 - Essential (primary) hypertension Status: Acute Assessment and Plan: Home medications on hold continue to monitor. (4) Hyperlipidemia: Code(s): E78.5 - Hyperlipidemia, unspecified Status: Acute Assessment and Plan: Home medications but will restart whenever tolerating diet. Stable without treatment at this time. Blood pressure reviewed on 05/18 Plan Pain control post CT-guided drainage placement. Further intervention deferred to surgery. Time Spent With Patient Time with patient: 15 - 25 minutes Subjective Date/time seen: 05/18/23 13:29 Interval history: 05/17: Patient admitted yesterday for intra-abdominal abscess, possibly related to recent colonoscopy. He went to Interventional Radiology for CT-guided drainage catheter placement. Patient complaining of significant pain and nausea after procedure. Due to pain patient not interested in further evaluation or questions until his pain is controlled. I spoke to patient's regarding typical course of care for the situations. Deferred to General surgery for further dispo planning. 05/18: Patient seen today had to be removed to private room as he was not able to tolerate a roommate. Pain is better today. Drainage tube in place. He is passing gas overnight. Surgery has advanced diet. Review of Systems Review of Systems: All systems reviewed & are unremarkable except as noted in HPI and below Eyes: Eyes: Denies change in vision ENT: Denies hearing loss, Denies neck pain and Denies sore throat Cardiovascular: Cardiovascular: Denies chest pain and Denies dyspnea Respiratory: Respiratory: Denies cough, Denies dyspnea and Denies wheezing Gastrointestinal: Gastrointestinal: Reports as per HPI Genitourinary: Genitourinary: Denies hematuria and Denies dysuria Musculoskeletal: Musculoskeletal: Denies arthralgias, Denies joint swelling and Denies neck pain Allergic/Immunologic: Allergic/Immunologic: Denies wheezing Exam Narrative: GENERAL: Patient is alert and oriented exhibiting some signs of pain but much improved from yesterday HEENT: Pupils PERRL, EOMI, moist mucous membranes NECK: The patient has no noted JVD. CHEST/LUNGS: Lungs are clear bilaterally without rhonchi, rales, or wheezes. HEART: Regular rate and regular rhythm. No murmurs, rubs, or gallops are appreciated. ABDOMEN: The patient?s abdomen is tender to palpation, more focal on the right lower quadrant. Pigtail drain in place with small amount of purulence drainage. EXTREMITIES: The patient has no peripheral edema. SKIN: No significant bleeding wounds PSYCHIATRIC: Improved mood, pain adverse NEUROLOGIC: Awake, alert, able to move all extremities equally 5/5 strength Objective Data Vital Signs Vital Signs: Vital Signs - 24 hr 05/17/23 14:00 05/17/23 20:00 05/17/23 21:35 Temperature 36.8 C 37.5 C Pulse Rate 119 H 119 H 102 H Respiratory Rate 12 12 20 Blood Pressure 123/77 128/74 Pu
[2023-05-18] MEDS: ACETAMINOPHEN 325 MG TABLET 650 MG PO (15:14)
[2023-05-18] MEDS: PANTOPRAZOLE SODIUM IV 40 MG VIAL 80 MG IV PUSH (17:18)
[2023-05-18 17:23] LABS: Hematocrit 29.3 % (42.0-52.0); Hemoglobin 9.4 g/dL (14.0-18.0); Mean Corpuscular HGB Conc 32.1 g/dl (32-36); Mean Corpuscular Volume 96.7 fl (80-100); Platelet Count Result 156 k/mm3 (150-375); Red Blood Count 3.03 M/mm3 (4.6-6.20); White Blood Count 10.2 K/mm3 (4.5-10.0)
[2023-05-19] VITALS (10 sets, daily range): BP systolic 117–133; BP diastolic 63–69; PULSE 71–88; RESP 18; TEMP 36.4–37.6; O2SAT 97–99
[2023-05-19] MEDS: PIPERACILLN/TAZ 3.375GM/NS50ML 3.375 GM/50 ML BAG IVPB ×5 (00:13→23:58)
[2023-05-19 04:27] LABS: IFOB Positive Control Positive; Immunochemical Fecal Occult Bl Negative (N)
[2023-05-19 06:30] LABS: Basophils Percent Auto 0.4 % (0.2-1.2); Eosinophils Absolute Auto 0.1 K/mm3 (0-0.3); Eosinophils Percent Auto 0.5 % (0-4.4); Hematocrit 29.8 % (42.0-52.0); Hemoglobin 9.4 g/dL (14.0-18.0); Immature Granulocyte Absolute 0.28 K/mm3 (0.00-0.031); Immature Granulocyte Percent A 2.8 % (0-0.5); Lymphocytes Absolute Auto 1.23 K/mm3 (0.9-3.2); Lymphocytes Percent Auto 12.2 % (18.3-44.2); Mean Corpuscular HGB Conc 31.5 g/dl (32-36); Mean Corpuscular Hemoglobin 30.9 pg (26-34); Mean Platelet Volume 9.9 fl (7.4-10.4); Monocytes Absolute Auto 0.8 K/mm3 (0.1-0.6); Monocytes Percent Auto 7.9 % (2.6-8.5); Neutrophils Absolute Auto 7.7 K/mm3 (1.3-6.7); Neutrophils Percent Auto 76.2 % (45.5-73.1); Platelet Count Result 170 k/mm3 (150-375); Red Blood Count 3.04 M/mm3 (4.6-6.20); Red Cell Distribution Width 13.9 % (11.5-14.5); White Blood Count 10.1 K/mm3 (4.5-10.0)
[2023-05-19 06:39] LABS: Potassium 3.5 mmol/L (3.4-5.0)
[2023-05-19 06:42] LABS: Anion Gap -1 mmol/L (8-16); Blood Urea Nitrogen 33 mg/dL (9-20); Calcium 8.5 mg/dL (8.4-10.2); Carbon Dioxide 32 mmol/L (22-30); Chloride 107 mmol/L (98-107); Estimated CRCL calculation 50 ml/min; Estimated Glomerular Filt Rate > 60; Glucose 118 mg/dL (65-110); Sodium 138 mmol/L (137-145)
[2023-05-19] MEDS: PANTOPRAZOLE SODIUM IV 40 MG VIAL IV PUSH ×2 (08:38→20:34)
--- NOTE | 2023-05-19 11:05 | PM.IMPN ---
Progress Note: A&P Assessment and Plan (1) Abscess, intra-abdominal, postoperative: Code(s): T81.43XA - Infection following a procedure, organ and space surgical site, initial encounter Status: Acute Assessment and Plan: CT-guided drainage catheter placed and patient is on IV Zosyn. General surgery on board as well as Interventional Radiology. 05/18: Pigtail drainage catheter in place, pain improved, passing gas (2) Intractable nausea and vomiting: Code(s): R11.2 - Nausea with vomiting, unspecified Status: Acute Assessment and Plan: 05/18: Despite receiving Zofran 3 times a day patient having trouble advancing diet and vomited overnight. He states he has the weakest stomach ever. Added IV haloperidol p.r.n. (3) AALIYAH (acute kidney injury): Code(s): N17.9 - Acute kidney failure, unspecified Status: Acute Assessment and Plan: 05/17: Likely related to recent bowel prep and relative NPO status prior to hospitalization. Improving after IV fluids given in the emergency department. Continue to trend. Continue IV fluids until patient tolerating normal 05/18: Much improved with serum creatinine 1.2 BUN 36 and estimated GFR greater than 60. IV fluids decreased and patient allowed a clear liquid diet 05/19: Patient still on IV antibiotics because he is not tolerating diet very well. Renal function same as yesterday. (4) Hypertension: Code(s): I10 - Essential (primary) hypertension Status: Acute Assessment and Plan: Home medications on hold continue to monitor. Stable blood pressures without medication. Blood pressure reviewed on 05/19 (5) Hyperlipidemia: Code(s): E78.5 - Hyperlipidemia, unspecified Status: Acute Assessment and Plan: Home medications but will restart whenever tolerating full diet. Plan Add IV haloperidol due to continue nausea and vomiting. Would like to use metoclopramide instead but concerned about this activating severe anxiety for this patient. Time Spent With Patient Time with patient: 25 - 35 minutes Subjective Date/time seen: 05/19/23 11:05 Interval history: 05/17: Patient admitted yesterday for intra-abdominal abscess, possibly related to recent colonoscopy. He went to Interventional Radiology for CT-guided drainage catheter placement. Patient complaining of significant pain and nausea after procedure. Due to pain patient not interested in further evaluation or questions until his pain is controlled. I spoke to patient's regarding typical course of care for the situations. Deferred to General surgery for further dispo planning. 05/18: Patient seen today had to be removed to private room as he was not able to tolerate a roommate. Pain is better today. Drainage tube in place. He is passing gas overnight. Surgery has advanced diet. 05/19: Patient seen today states that he had vomiting overnight concerned he had GI bleeding but Hemoccult was negative. Patient believes that his stomach is still irritated from 8 in a seizure he had when he had his colonoscopy 2 days before admission. Review of Systems Review of Systems: All systems reviewed & are unremarkable except as noted in HPI and below Exam Narrative: GENERAL: Patient is alert and oriented exhibiting some signs of pain but mostly complaining about nausea and vomiting HEENT: Pupils PERRL, EOMI, moist mucous membranes NECK: The patient has no noted JVD. CHEST/LUNGS: Lungs are clear bilaterally without rhonchi, rales, or wheezes. HEART: Regular rate and regular rhythm. No murmurs, rubs, or gallops are appreciated. ABDOMEN: The patient?s abdomen is tender to palpation, more focal on the right lower quadrant. Pigtail drain in place with small amount of purulence drainage. EXTREMITIES: The patient has no peripheral edema. SKIN: No significant bleeding wounds PSYCHIATRIC: Improved mood, pain averse NEUROLOGIC: Awake, alert, able to move all extremities
[2023-05-19] MEDS: HALOPERIDOL LACTATE 5 MG/ML VIAL 2.5 MG IV PUSH ×2 (11:32→20:33)
[2023-05-19] MEDS: LORATADINE 10 MG TABLET PO (11:39)
[2023-05-19] MEDS: LACTATED RINGERS 1,000 ML 150 ML IV CONT (11:39)
--- NOTE | 2023-05-19 15:29 | PM.PNGS ---
Progress Note: A&P Assessment and Plan (1) Abscess, intra-abdominal, postoperative: Code(s): T81.43XA - Infection following a procedure, organ and space surgical site, initial encounter Status: Acute Assessment and Plan: Showing signs of improvement. Still having nausea and occasional vomiting. Continue clear liquids today. Continue Zosyn and monitor drain output. Will get KUB in AM. (2) Perforation of colon as colonoscopy complication: Code(s): K63.1 - Perforation of intestine (nontraumatic); K91.71 - Accidental puncture and laceration of a digestive system organ or structure during a digestive system procedure Status: Acute (3) AALIYAH (acute kidney injury): Code(s): N17.9 - Acute kidney failure, unspecified Status: Acute (4) Hypertension: Code(s): I10 - Essential (primary) hypertension Status: Acute Subjective Subjective Date/Time Seen: 05/19/23 15:29 Interval history: Still having nausea and occasional vomiting. Bowels moving and passing flatus. Pain improved. Exam GI: Inspection: non-distended GI Palp: Yes Soft to palpation, Yes Tenderness to palpation present (GI) (RLQ), No Guarding due to palpation present (GI) and No Rebound tenderness present Other: Pigtail drain with minimal serous output Objective Data Vital Signs Vital Signs: Vital Signs - 24 hr 05/18/23 16:00 05/18/23 20:00 05/18/23 22:00 Temperature 36.8 C Pulse Rate 102 H 86 Respiratory Rate 18 Blood Pressure 122/70 Pulse Oximetry 95 Oxygen Delivery Room Air 05/18/23 20:00 05/19/23 00:00 05/19/23 04:00 Temperature Pulse Rate 76 72 71 Respiratory Rate Blood Pressure Pulse Oximetry Oxygen Delivery 05/19/23 06:00 05/19/23 08:00 05/19/23 08:00 Temperature 36.5 C Pulse Rate 78 76 Respiratory Rate 18 Blood Pressure 117/69 Pulse Oximetry 97 Oxygen Delivery Room Air 05/19/23 08:00 05/19/23 12:00 05/19/23 14:00 Temperature 36.4 C L Pulse Rate 73 74 77 Respiratory Rate 18 Blood Pressure 125/63 Pulse Oximetry 99 Oxygen Delivery Intake/Output Intake/Output: Intake & Output 05/16/23 05/17/23 05/18/23 05/19/23 23:59 23:59 23:59 23:59 Intake Total 2100 1100 3375 1338 Output Total 15 30 350 Balance 2100 1085 3345 988 Meds/Results Medications: Active Medications Generic Name Dose Route Start Last Admin Trade Name Freq PRN Reason Stop Dose Admin Acetaminophen 650 mg 05/16/23 21:37 05/18/23 15:14 Acetaminophen 325 Mg Tablet PO 650 mg Q6H PRN Administration Mild Pain (1-3) or Fever Haloperidol Lactate 2.5 mg 05/19/23 10:39 05/19/23 11:32 Haloperidol Lactate 5 Mg/Ml Vial IV PUSH 2.5 mg Q4H PRN Administration nausea Lactated Ringer's 1,000 mls @ 75 mls/hr 05/16/23 21:30 05/19/23 11:39 Lr - Lactated Ringers Iv IV CONT 150 mls/hr .[id number] POOJA Administration Piperacillin/Tazobactam/Dextrose 3.375 gm in 50 mls @ 100 mls/hr 05/17/23 07:50 05/19/23 11:39 Zosyn 3.375 Gm/Ns 50 Ml IVPB 100 mls/hr Q6HR POOJA Administration Loratadine 10 mg 05/19/23 10:45 05/19/23 11:39 Loratadine 10 Mg Tablet PO 10 mg QAM POOJA Administration Morphine Sulfate 2 mg 05/16/23 21:27 05/18/23 09:00 Morphine Sulfate (*Crx) 2 Mg/Ml Inj IV PUSH 2 mg Q4H PRN Administration Pain Rated 7-10 Ondansetron HCl 4 mg 05/16/23 21:27 05/18/23 20:35 Ondansetron Inj 4 Mg/2 Ml Vial IV PUSH 4 mg Q4H PRN Administration Nausea And Vomiting Pantoprazole Sodium 40 mg 05/19/23 09:00 05/19/23 08:38 Pantoprazole Sodium Iv 40 Mg Vial IV PUSH 40 mg Q12HR POOJA Administration Radiology Results: ITS Impressions Abdomen/Pelvis CT 05/16/23 16:19 IMPRESSION: 1. Abscess in the inferior peritoneum. CT-guided drainage is recommended. 2. Dilated small bowel, consistent with adynamic ileus. Catheter Placement CT 05/17/23 14:30 IMPRESSION: 1. Success
[2023-05-19] MEDS: ACETAMINOPHEN 325 MG TABLET 650 MG PO (20:34)
[2023-05-19] MEDS: LACTATED RINGERS 1,000 ML 75 ML IV CONT (23:58)
[2023-05-20] VITALS: PULSE 93
[2023-05-20 04:00] VITALS: PULSE 77
[2023-05-20 06:00] VITALS: BP 143/83; PULSE 86; RESP 18; TEMP 37; O2SAT 96
[2023-05-20] MEDS: PIPERACILLN/TAZ 3.375GM/NS50ML 3.375 GM/50 ML BAG IVPB ×3 (06:08→17:39)
[2023-05-20 07:20] LABS: Basophils Percent Auto 0.4 % (0.2-1.2); Eosinophils Absolute Auto 0.1 K/mm3 (0-0.3); Eosinophils Percent Auto 1.3 % (0-4.4); Hematocrit 28.7 % (42.0-52.0); Hemoglobin 9.2 g/dL (14.0-18.0); Immature Granulocyte Absolute 0.41 K/mm3 (0.00-0.031); Immature Granulocyte Percent A 4.6 % (0-0.5); Lymphocytes Absolute Auto 1.58 K/mm3 (0.9-3.2); Lymphocytes Percent Auto 17.7 % (18.3-44.2); Mean Corpuscular HGB Conc 32.1 g/dl (32-36); Mean Corpuscular Hemoglobin 30.8 pg (26-34); Monocytes Absolute Auto 0.7 K/mm3 (0.1-0.6); Monocytes Percent Auto 7.7 % (2.6-8.5); Neutrophils Absolute Auto 6.1 K/mm3 (1.3-6.7); Neutrophils Percent Auto 68.3 % (45.5-73.1); Platelet Count Result 209 k/mm3 (150-375); Red Blood Count 2.99 M/mm3 (4.6-6.20); Red Cell Distribution Width 13.8 % (11.5-14.5); White Blood Count 8.9 K/mm3 (4.5-10.0)
[2023-05-20 07:34] LABS: Potassium 3.3 mmol/L (3.4-5.0)
[2023-05-20 07:43] LABS: Anion Gap 0 mmol/L (8-16); Blood Urea Nitrogen 24 mg/dL (9-20); Carbon Dioxide 30 mmol/L (22-30); Chloride 105 mmol/L (98-107); Estimated CRCL calculation 59 ml/min; Estimated Glomerular Filt Rate > 60; Glucose 122 mg/dL (65-110); Sodium 135 mmol/L (137-145)
[2023-05-20 08:00] VITALS: PULSE 90
[2023-05-20] MEDS: PANTOPRAZOLE SODIUM IV 40 MG VIAL IV PUSH ×2 (08:28→21:58)
[2023-05-20] MEDS: LORATADINE 10 MG TABLET PO (08:28)
[2023-05-20] MEDS: POTASSIUM CHLORIDE INJ 40 MEQ in SODIUM CHLORIDE 0.9% IV 500 ML 130 MEQ IVPB (08:28)
--- NOTE | 2023-05-20 09:03 | PM.IMPN ---
Progress Note: A&P Assessment and Plan (1) Abscess, intra-abdominal, postoperative: Code(s): T81.43XA - Infection following a procedure, organ and space surgical site, initial encounter Status: Acute Assessment and Plan: Advance to full liquids. Continue Zosyn. Xray still shows some dilated small bowel but clinically seems to be improved. Monitor drain output, might be able to remove tomorrow if no increased output. (2) Perforation of colon as colonoscopy complication: Code(s): K63.1 - Perforation of intestine (nontraumatic); K91.71 - Accidental puncture and laceration of a digestive system organ or structure during a digestive system procedure Status: Acute (3) AALIYAH (acute kidney injury): Code(s): N17.9 - Acute kidney failure, unspecified Status: Acute Assessment and Plan: 05/17: Likely related to recent bowel prep and relative NPO status prior to hospitalization. Improving after IV fluids given in the emergency department. Continue to trend. Continue IV fluids until patient tolerating normal 05/18: Much improved with serum creatinine 1.2 BUN 36 and estimated GFR greater than 60. IV fluids decreased and patient allowed a clear liquid diet 05/19: Patient still on IV antibiotics because he is not tolerating diet very well. Renal function same as yesterday. 05/20: Resolved. Cr 1.0, BUN 24, GFR>60 (4) Hypertension: Code(s): I10 - Essential (primary) hypertension Status: Acute Assessment and Plan: Home medications on hold continue to monitor. Stable blood pressures without medication. Blood pressure reviewed on 05/20 (5) Intractable nausea and vomiting: Code(s): R11.2 - Nausea with vomiting, unspecified Status: Acute Assessment and Plan: 05/19: Despite receiving Zofran 3 times a day patient having trouble advancing diet and vomited overnight. He states he has the weakest stomach ever. Added IV haloperidol p.r.n. 05/20: Patient barely tolerating full liquid diet. (6) Hyperlipidemia: Code(s): E78.5 - Hyperlipidemia, unspecified Status: Acute Assessment and Plan: Home medications but will restart whenever tolerating full diet. Plan Add IV haloperidol due to continue nausea and vomiting. Would like to use metoclopramide instead but concerned about this activating severe anxiety for this patient. Unable to deescalate IV antibiotics to oral for GI upset reasons. Will attempt to add oral metoclopramide before meals Time Spent With Patient Time with patient: 25 - 35 minutes Subjective Date/time seen: 05/20/23 09:03 Interval history: 05/17: Patient admitted yesterday for intra-abdominal abscess, possibly related to recent colonoscopy. He went to Interventional Radiology for CT-guided drainage catheter placement. Patient complaining of significant pain and nausea after procedure. Due to pain patient not interested in further evaluation or questions until his pain is controlled. I spoke to patient's regarding typical course of care for the situations. Deferred to General surgery for further dispo planning. 05/18: Patient seen today had to be removed to private room as he was not able to tolerate a roommate. Pain is better today. Drainage tube in place. He is passing gas overnight. Surgery has advanced diet. 05/19: Patient seen today states that he had vomiting overnight concerned he had GI bleeding but Hemoccult was negative. Patient believes that his stomach is still irritated from anesthesia he had when he had his colonoscopy 2 days before admission. 05/20: Patient having difficulty advancing diet as tolerated. Abscess culture results are in and patient could be deescalated to Augmentin and metronidazole but at this point I do not believe patient can tolerate these oral antibiotics. Patient seems to still need time for GI system to recover. Review of Systems Review of Systems: All systems reviewed & are unremarkable
--- NOTE | 2023-05-20 09:17 | PM.PNGS ---
Progress Note: A&P Assessment and Plan (1) Abscess, intra-abdominal, postoperative: Code(s): T81.43XA - Infection following a procedure, organ and space surgical site, initial encounter Status: Acute Assessment and Plan: Advance to full liquids. Continue Zosyn. Xray still shows some dilated small bowel but clinically seems to be improved. Monitor drain output, might be able to remove tomorrow if no increased output. (2) Perforation of colon as colonoscopy complication: Code(s): K63.1 - Perforation of intestine (nontraumatic); K91.71 - Accidental puncture and laceration of a digestive system organ or structure during a digestive system procedure Status: Acute (3) AALIYAH (acute kidney injury): Code(s): N17.9 - Acute kidney failure, unspecified Status: Acute (4) Hypertension: Code(s): I10 - Essential (primary) hypertension Status: Acute Subjective Subjective Date/Time Seen: 05/20/23 09:17 Interval history: Pain improving. Bowels moving and passing flatus. Nausea improved. No fevers. Exam GI: Inspection: non-distended GI Palp: Yes Soft to palpation, Yes Tenderness to palpation present (GI) (RLQ), No Guarding due to palpation present (GI) and No Rebound tenderness present Other: Pigtail drain with minimal serous output Objective Data Vital Signs Vital Signs: Vital Signs - 24 hr 05/19/23 12:00 05/19/23 14:00 05/19/23 16:00 Temperature 36.4 C L Pulse Rate 74 77 78 Respiratory Rate 18 Blood Pressure 125/63 Pulse Oximetry 99 05/19/23 16:00 05/19/23 20:34 05/19/23 22:00 Temperature 37.6 C H 37.6 C H Pulse Rate 75 88 Respiratory Rate 18 Blood Pressure 133/69 Pulse Oximetry 99 05/19/23 20:00 05/20/23 00:00 05/20/23 04:00 Temperature Pulse Rate 83 93 77 Respiratory Rate Blood Pressure Pulse Oximetry 05/20/23 06:00 Temperature 37.0 C Pulse Rate 86 Respiratory Rate 18 Blood Pressure 143/83 H Pulse Oximetry 96 Intake/Output Intake/Output: Intake & Output 05/17/23 05/18/23 05/19/23 05/20/23 23:59 23:59 23:59 23:59 Intake Total 1100 3375 2915 1470 Output Total 15 30 360 12 Balance 1085 7768 9590 2668 Meds/Results Medications: Active Medications Generic Name Dose Route Start Last Admin Trade Name Freq PRN Reason Stop Dose Admin Acetaminophen 650 mg 05/16/23 21:37 05/19/23 20:34 Acetaminophen 325 Mg Tablet PO 650 mg Q6H PRN Administration Mild Pain (1-3) or Fever Hydrocodone Bitart/Acetaminophen 1 tab 05/20/23 08:21 Hydrocodone/Acetaminophen (*Crx) 5-325 Mg Tablet PO Q4H PRN Pain Rated 4-6 Haloperidol Lactate 2.5 mg 05/19/23 10:39 05/19/23 20:33 Haloperidol Lactate 5 Mg/Ml Vial IV PUSH 2.5 mg Q4H PRN Administration nausea Piperacillin/Tazobactam/Dextrose 3.375 gm in 50 mls @ 100 mls/hr 05/17/23 07:50 05/20/23 06:08 Zosyn 3.375 Gm/Ns 50 Ml IVPB 100 mls/hr Q6HR POOJA Administration Potassium Chloride 40 meq/ 520 mls @ 130 mls/hr 05/20/23 07:47 05/20/23 08:28 Sodium Chloride IVPB 05/20/23 11:46 130 mls/hr ONCE ONE Administration Loratadine 10 mg 05/19/23 10:45 05/20/23 08:28 Loratadine 10 Mg Tablet PO 10 mg QAM POOJA Administration Morphine Sulfate 2 mg 05/16/23 21:27 05/18/23 09:00 Morphine Sulfate (*Crx) 2 Mg/Ml Inj IV PUSH 2 mg Q4H PRN Administration Pain Rated 7-10 Ondansetron HCl 4 mg 05/16/23 21:27 05/18/23 20:35 Ondansetron Inj 4 Mg/2 Ml Vial IV PUSH 4 mg Q4H PRN Administration Nausea And Vomiting Pantoprazole Sodium 40 mg 05/19/23 09:00 05/20/23 08:28 Pantoprazole Sodium Iv 40 Mg Vial IV PUSH 40 mg Q12HR POOJA Administration Radiology Results: ITS Impressions Abdomen/Pelvis CT 05/16/23 16:19 IMPRESSION: 1. Abscess in the inferior peritoneum. CT-guided drainage is recommended. 2. Dilated small bowel, consistent with adynamic ileus. Catheter Placemen
[2023-05-20] MEDS: HYDROcodone/acetaminophen (*CRX) 5-325 MG TABLET 1 TAB PO ×3 (12:44→22:06)
[2023-05-20 14:00] VITALS: BP 149/75; PULSE 93; RESP 24; TEMP 37.1; O2SAT 99
[2023-05-20] MEDS: METOCLOPRAMIDE HCL 5 MG TABLET PO ×2 (16:27→21:58)
[2023-05-20] MEDS: ATORVASTATIN 40 MG TABLET PO (21:58)
[2023-05-20] MEDS: hydroCHLOROthiazide 25 MG TABLET PO (21:58)
[2023-05-20] MEDS: lisinopriL 20 MG TABLET PO (21:59)
[2023-05-20 22:00] VITALS: BP 137/72; PULSE 83; RESP 20; TEMP 37.1; O2SAT 92
[2023-05-21] MEDS: PIPERACILLN/TAZ 3.375GM/NS50ML 3.375 GM/50 ML BAG IVPB ×2 (01:52→05:48)
[2023-05-21] MEDS: HYDROcodone/acetaminophen (*CRX) 5-325 MG TABLET 1 TAB PO ×4 (02:33→19:36)
[2023-05-21] MEDS: METOCLOPRAMIDE HCL 5 MG TABLET PO ×4 (05:48→21:31)
[2023-05-21 06:00] VITALS: BP 134/76; PULSE 94; RESP 18; TEMP 37.1; O2SAT 98
[2023-05-21 06:33] LABS: Basophils Percent Auto 0.3 % (0.2-1.2); Eosinophils Absolute Auto 0.1 K/mm3 (0-0.3); Hematocrit 30.4 % (42.0-52.0); Immature Granulocyte Absolute 0.43 K/mm3 (0.00-0.031); Immature Granulocyte Percent A 3.3 % (0-0.5); Lymphocytes Absolute Auto 1.76 K/mm3 (0.9-3.2); Lymphocytes Percent Auto 13.4 % (18.3-44.2); Mean Corpuscular HGB Conc 32.9 g/dl (32-36); Mean Corpuscular Hemoglobin 31.1 pg (26-34); Mean Corpuscular Volume 94.4 fl (80-100); Mean Platelet Volume 9.6 fl (7.4-10.4); Monocytes Absolute Auto 0.8 K/mm3 (0.1-0.6); Monocytes Percent Auto 6.2 % (2.6-8.5); Neutrophils Percent Auto 75.8 % (45.5-73.1); Platelet Count Result 276 k/mm3 (150-375); Red Blood Count 3.22 M/mm3 (4.6-6.20); Red Cell Distribution Width 13.4 % (11.5-14.5); White Blood Count 13.2 K/mm3 (4.5-10.0)
[2023-05-21 07:16] LABS: Anion Gap 3 mmol/L (8-16); Blood Urea Nitrogen 15 mg/dL (9-20); Calcium 8.2 mg/dL (8.4-10.2); Carbon Dioxide 26 mmol/L (22-30); Chloride 100 mmol/L (98-107); Estimated CRCL calculation 65 ml/min; Estimated Glomerular Filt Rate > 60; Glucose 110 mg/dL (65-110); Potassium 3.2 mmol/L (3.4-5.0); Sodium 129 mmol/L (137-145)
[2023-05-21] MEDS: LORATADINE 10 MG TABLET PO (09:12)
[2023-05-21] MEDS: PANTOPRAZOLE SODIUM IV 40 MG VIAL IV PUSH ×2 (09:12→21:32)
[2023-05-21] MEDS: POTASSIUM CHLORIDE 20 MEQ ER TABLET 40 MEQ PO (09:12)
--- NOTE | 2023-05-21 11:25 | PM.IMPN ---
Progress Note: A&P Assessment and Plan (1) Abscess, intra-abdominal, postoperative: Code(s): T81.43XA - Infection following a procedure, organ and space surgical site, initial encounter Status: Acute Assessment and Plan: 05/20: Advance to full liquids. Continue Zosyn. Xray still shows some dilated small bowel but clinically seems to be improved. 05/20: Monitor drain output, might be able to remove tomorrow if no increased output. 05/21: Will attempt to transition patient to oral antibiotics Augmentin and Flagyl if OK with Surgery. (2) Perforation of colon as colonoscopy complication: Code(s): K63.1 - Perforation of intestine (nontraumatic); K91.71 - Accidental puncture and laceration of a digestive system organ or structure during a digestive system procedure Status: Acute Assessment and Plan: See #1 (3) Intractable nausea and vomiting: Code(s): R11.2 - Nausea with vomiting, unspecified Status: Acute Assessment and Plan: 05/19: Despite receiving Zofran 3 times a day patient having trouble advancing diet and vomited overnight. He states he has the weakest stomach ever. Added IV haloperidol p.r.n. 05/20: Patient barely tolerating full liquid diet. 05/21: Patient tolerating liquid diet well, surgery to consider advancing diet. (4) Hyponatremia: Code(s): E87.1 - Hypo-osmolality and hyponatremia Status: Acute Assessment and Plan: 05/21: Mild decrease in sodium to 129. Hold HCTZ component of home medications. (5) Hypertension: Code(s): I10 - Essential (primary) hypertension Status: Acute Assessment and Plan: Home medications on hold continue to monitor. Stable blood pressures without medication. Blood pressure reviewed on 05/21 (6) Hyperlipidemia: Code(s): E78.5 - Hyperlipidemia, unspecified Status: Acute Assessment and Plan: Home medications but will restart whenever tolerating full diet. Plan Patient tolerating liquid diet. Surgery to advance diet if they feel ready and possibly remove drain. Will attempt oral antibiotic conversion today. Aim for discharge tomorrow. Hold HCTZ portion of home antihypertensive due to mild hyponatremia Time Spent With Patient Time with patient: 25 - 35 minutes Subjective Date/time seen: 05/21/23 11:25 Interval history: 05/17: Patient admitted yesterday for intra-abdominal abscess, possibly related to recent colonoscopy. He went to Interventional Radiology for CT-guided drainage catheter placement. Patient complaining of significant pain and nausea after procedure. Due to pain patient not interested in further evaluation or questions until his pain is controlled. I spoke to patient's regarding typical course of care for the situations. Deferred to General surgery for further dispo planning. 05/18: Patient seen today had to be removed to private room as he was not able to tolerate a roommate. Pain is better today. Drainage tube in place. He is passing gas overnight. Surgery has advanced diet. 05/19: Patient seen today states that he had vomiting overnight concerned he had GI bleeding but Hemoccult was negative. Patient believes that his stomach is still irritated from anesthesia he had when he had his colonoscopy 2 days before admission. 05/20: Patient having difficulty advancing diet as tolerated. Abscess culture results are in and patient could be deescalated to Augmentin and metronidazole but at this point I do not believe patient can tolerate these oral antibiotics. Patient seems to still need time for GI system to recover. 05/21: Patient feeling better today, periodic dry cough, pain improved and nausea/vomiting improved. Review of Systems Review of Systems: All systems reviewed & are unremarkable except as noted in HPI and below Exam Narrative: GENERAL: Patient is alert and oriented feeling and looking better today HEENT: Pupils PERRL, EOMI, moist mucous memb
--- NOTE | 2023-05-21 11:56 | PM.PNGS ---
Progress Note: A&P Assessment and Plan (1) Abscess, intra-abdominal, postoperative: Code(s): T81.43XA - Infection following a procedure, organ and space surgical site, initial encounter Status: Acute Assessment and Plan: Advance to low fiber diet. OK to transition to oral antibiotics. Repeat CBC in AM. Monitor drain output, might be able to remove tomorrow if no increased output. (2) Perforation of colon as colonoscopy complication: Code(s): K63.1 - Perforation of intestine (nontraumatic); K91.71 - Accidental puncture and laceration of a digestive system organ or structure during a digestive system procedure Status: Acute (3) AALIYAH (acute kidney injury): Code(s): N17.9 - Acute kidney failure, unspecified Status: Acute (4) Hypertension: Code(s): I10 - Essential (primary) hypertension Status: Acute Subjective Subjective Date/Time Seen: 05/21/23 11:56 Interval history: Bowels moving. Feeling better. Tolerating full liquid diet. Exam GI: Inspection: non-distended GI Palp: Yes Soft to palpation, Yes Tenderness to palpation present (GI) (LLQ), No Guarding due to palpation present (GI) and No Rebound tenderness present Other: Pigtail drain with minimal serous output Objective Data Vital Signs Vital Signs: Vital Signs - 24 hr 05/20/23 14:00 05/20/23 22:00 05/21/23 06:00 Temperature 37.1 C 37.1 C 37.1 C Pulse Rate 93 83 94 Respiratory Rate 24 H 20 18 Blood Pressure 149/75 H 137/72 134/76 Pulse Oximetry 99 92 98 Oxygen Delivery 05/21/23 08:00 Temperature Pulse Rate Respiratory Rate Blood Pressure Pulse Oximetry Oxygen Delivery Room Air Intake/Output Intake/Output: Intake & Output 05/18/23 05/19/23 05/20/23 05/21/23 23:59 23:59 23:59 23:59 Intake Total 6472 6975 4300 870 Output Total 30 360 22 10 Balance 0385 0316 2598 860 Meds/Results Medications: Active Medications Generic Name Dose Route Start Last Admin Trade Name Freq PRN Reason Stop Dose Admin Acetaminophen 650 mg 05/16/23 21:37 05/19/23 20:34 Acetaminophen 325 Mg Tablet PO 650 mg Q6H PRN Administration Mild Pain (1-3) or Fever Hydrocodone Bitart/Acetaminophen 1 tab 05/20/23 08:21 05/21/23 10:25 Hydrocodone/Acetaminophen (*Crx) 5-325 Mg Tablet PO 1 tab Q4H PRN Administration Pain Rated 4-6 Amoxicillin/Clavulanate Potassium 1 tablet 05/21/23 21:00 Amoxicillin/Clavulanate K 875-125 Mg Tab PO Q12HR POOJA Atorvastatin Calcium 40 mg 05/20/23 21:00 05/20/23 21:58 Atorvastatin 40 Mg Tablet PO 40 mg HS POOJA Administration Haloperidol Lactate 2.5 mg 05/19/23 10:39 05/19/23 20:33 Haloperidol Lactate 5 Mg/Ml Vial IV PUSH 2.5 mg Q4H PRN Administration nausea Lisinopril 20 mg 05/20/23 21:00 05/20/23 21:59 Lisinopril 20 Mg Tablet PO 20 mg HS POOJA Administration Loratadine 10 mg 05/19/23 10:45 05/21/23 09:12 Loratadine 10 Mg Tablet PO 10 mg QAM POOJA Administration Metoclopramide HCl 5 mg 05/20/23 16:30 05/21/23 05:48 Metoclopramide Hcl 5 Mg Tablet PO 5 mg ACHS POOJA Administration Metronidazole 500 mg 05/21/23 14:00 Metronidazole 250 Mg Tablet PO Q8HR POOJA Morphine Sulfate 2 mg 05/16/23 21:27 05/18/23 09:00 Morphine Sulfate (*Crx) 2 Mg/Ml Inj IV PUSH 2 mg Q4H PRN Administration Pain Rated 7-10 Ondansetron HCl 4 mg 05/16/23 21:27 05/18/23 20:35 Ondansetron Inj 4 Mg/2 Ml Vial IV PUSH 4 mg Q4H PRN Administration Nausea And Vomiting Pantoprazole Sodium 40 mg 05/19/23 09:00 05/21/23 09:12 Pantoprazole Sodium Iv 40 Mg Vial IV PUSH 40 mg Q12HR POOJA Administration Radiology Results: ITS Impressions Abdomen/Pelvis CT 05/16/23 16:19 IMPRESSION: 1. Abscess in the inferior peritoneum. CT-guided drainage is recommended. 2. Dilated small bowel, consistent with adynamic ileus. Catheter Placement CT 05/17/23 14:30 IM
[2023-05-21 14:00] VITALS: BP 124/79; PULSE 96; RESP 16; TEMP 36.6; O2SAT 100
[2023-05-21] MEDS: metroNIDAZOLE 250 MG TABLET 500 MG PO ×2 (15:31→21:31)
[2023-05-21 20:00] VITALS: PULSE 95; RESP 16; O2SAT 99
[2023-05-21] MEDS: ATORVASTATIN 40 MG TABLET PO (21:31)
[2023-05-21] MEDS: lisinopriL 20 MG TABLET PO (21:31)
[2023-05-21] MEDS: AMOXICILLIN/CLAVULANATE K 875-125 MG TAB 1 TABLET PO (21:40)
[2023-05-21 21:45] VITALS: BP 132/77; PULSE 95; RESP 16; TEMP 36.4; O2SAT 99
[2023-05-22] MEDS: HYDROcodone/acetaminophen (*CRX) 5-325 MG TABLET 1 TAB PO ×4 (02:58→19:51)
[2023-05-22 05:50] VITALS: BP 117/68; PULSE 89; RESP 16; TEMP 36.2; O2SAT 97
[2023-05-22 06:17] LABS: Basophils Absolute Auto 0.1 K/mm3 (0.0-0.1); Basophils Percent Auto 0.4 % (0.2-1.2); Eosinophils Absolute Auto 0.1 K/mm3 (0-0.3); Eosinophils Percent Auto 0.9 % (0-4.4); Hematocrit 31.7 % (42.0-52.0); Hemoglobin 10.3 g/dL (14.0-18.0); Immature Granulocyte Absolute 0.44 K/mm3 (0.00-0.031); Immature Granulocyte Percent A 2.8 % (0-0.5); Lymphocytes Absolute Auto 1.92 K/mm3 (0.9-3.2); Lymphocytes Percent Auto 12.1 % (18.3-44.2); Mean Corpuscular HGB Conc 32.5 g/dl (32-36); Mean Corpuscular Hemoglobin 30.5 pg (26-34); Mean Corpuscular Volume 93.8 fl (80-100); Mean Platelet Volume 9.3 fl (7.4-10.4); Monocytes Absolute Auto 0.7 K/mm3 (0.1-0.6); Monocytes Percent Auto 4.2 % (2.6-8.5); Neutrophils Absolute Auto 12.6 K/mm3 (1.3-6.7); Neutrophils Percent Auto 79.6 % (45.5-73.1); Platelet Count Result 349 k/mm3 (150-375); Red Blood Count 3.38 M/mm3 (4.6-6.20); Red Cell Distribution Width 13.2 % (11.5-14.5); White Blood Count 15.8 K/mm3 (4.5-10.0)
[2023-05-22] MEDS: METOCLOPRAMIDE HCL 5 MG TABLET PO ×3 (06:17→21:52)
[2023-05-22] MEDS: metroNIDAZOLE 250 MG TABLET 500 MG PO ×3 (06:17→21:49)
[2023-05-22 06:28] LABS: Anion Gap 3 mmol/L (8-16); Blood Urea Nitrogen 13 mg/dL (9-20); Calcium 7.9 mg/dL (8.4-10.2); Carbon Dioxide 31 mmol/L (22-30); Chloride 98 mmol/L (98-107); Estimated CRCL calculation 73 ml/min; Estimated Glomerular Filt Rate > 60; Glucose 108 mg/dL (65-110); Potassium 3.3 mmol/L (3.4-5.0); Sodium 132 mmol/L (137-145)
[2023-05-22] MEDS: LORATADINE 10 MG TABLET PO (08:34)
[2023-05-22] MEDS: AMOXICILLIN/CLAVULANATE K 875-125 MG TAB 1 TABLET PO ×2 (08:34→22:18)
[2023-05-22] MEDS: PANTOPRAZOLE SODIUM IV 40 MG VIAL IV PUSH ×2 (08:34→21:49)
--- NOTE | 2023-05-22 10:08 | PM.IMPN ---
Progress Note: A&P Assessment and Plan (1) Abscess, intra-abdominal, postoperative: Code(s): T81.43XA - Infection following a procedure, organ and space surgical site, initial encounter Status: Acute Assessment and Plan: 05/20: Advance to full liquids. Continue Zosyn. Xray still shows some dilated small bowel but clinically seems to be improved. 05/20: Monitor drain output, might be able to remove tomorrow if no increased output. 05/21: Will attempt to transition patient to oral antibiotics Augmentin and Flagyl if OK with Surgery. 05/22: WBC rising. CT shows second abscess. IR to place drain. Patient on low fiber diet (2) Perforation of colon as colonoscopy complication: Code(s): K63.1 - Perforation of intestine (nontraumatic); K91.71 - Accidental puncture and laceration of a digestive system organ or structure during a digestive system procedure Status: Acute Assessment and Plan: See #1 (3) Intractable nausea and vomiting: Code(s): R11.2 - Nausea with vomiting, unspecified Status: Acute Assessment and Plan: 05/19: Despite receiving Zofran 3 times a day patient having trouble advancing diet and vomited overnight. He states he has the weakest stomach ever. Added IV haloperidol p.r.n. 05/20: Patient barely tolerating full liquid diet. 05/21: Patient tolerating liquid diet well, surgery to consider advancing diet. 05/22: Doing well with metoclopramide ACHS. Patient on low fiber diet now. (4) Hyponatremia: Code(s): E87.1 - Hypo-osmolality and hyponatremia Status: Acute Assessment and Plan: 05/21: Mild decrease in sodium to 129. Hold HCTZ component of home medications. 05/22: Improving slightly, now 132. (5) Hypertension: Code(s): I10 - Essential (primary) hypertension Status: Acute Assessment and Plan: Home medications on hold continue to monitor. Stable blood pressures without medication. Blood pressure reviewed on 05/22 (6) Hyperlipidemia: Code(s): E78.5 - Hyperlipidemia, unspecified Status: Acute Assessment and Plan: Home medications but will restart whenever tolerating full diet. Plan Patient tolerating diet Second abscess identified. Patient tolerating PO antibiotics so far but WBC climbing IR to place second pigtail drain Unable to discharge at this time Hold HCTZ portion of home antihypertensive due to mild hyponatremia Time Spent With Patient Time with patient: 25 - 35 minutes Subjective Date/time seen: 05/22/23 10:08 Interval history: 05/17: Patient admitted yesterday for intra-abdominal abscess, possibly related to recent colonoscopy. He went to Interventional Radiology for CT-guided drainage catheter placement. Patient complaining of significant pain and nausea after procedure. Due to pain patient not interested in further evaluation or questions until his pain is controlled. I spoke to patient's regarding typical course of care for the situations. Deferred to General surgery for further dispo planning. 05/18: Patient seen today had to be removed to private room as he was not able to tolerate a roommate. Pain is better today. Drainage tube in place. He is passing gas overnight. Surgery has advanced diet. 05/19: Patient seen today states that he had vomiting overnight concerned he had GI bleeding but Hemoccult was negative. Patient believes that his stomach is still irritated from anesthesia he had when he had his colonoscopy 2 days before admission. 05/20: Patient having difficulty advancing diet as tolerated. Abscess culture results are in and patient could be deescalated to Augmentin and metronidazole but at this point I do not believe patient can tolerate these oral antibiotics. Patient seems to still need time for GI system to recover. 05/21: Patient feeling better today, periodic dry cough, pain improved and nausea/vomiting improved. 05/22: Patient still having lower abdominal pain requiring pa
--- NOTE | 2023-05-22 13:27 | PC.NURSE ---
Patient off of unit to CT
[2023-05-22 14:00] VITALS: BP 130/71; PULSE 92; RESP 18; TEMP 36.4; O2SAT 98
--- NOTE | 2023-05-22 16:05 | PM.PNGS ---
Progress Note: A&P Assessment and Plan (1) Abscess, intra-abdominal, postoperative: Code(s): T81.43XA - Infection following a procedure, organ and space surgical site, initial encounter Status: Acute Assessment and Plan: WBC up today--repeat CT this AM showed a persistent LLQ abscess. Second perc drain to be placed today by IR Continue IV antibiotics Possibly home in 1-2 days if WBC improved and all other signs of infection improved. (2) Perforation of colon as colonoscopy complication: Code(s): K63.1 - Perforation of intestine (nontraumatic); K91.71 - Accidental puncture and laceration of a digestive system organ or structure during a digestive system procedure Status: Acute (3) AALIYAH (acute kidney injury): Code(s): N17.9 - Acute kidney failure, unspecified Status: Acute (4) Hypertension: Code(s): I10 - Essential (primary) hypertension Status: Acute Subjective Subjective Date/Time Seen: 05/22/23 16:05 Interval history: Bowels moving. Still experiencing some lower abdominal pain. No fevers. Exam GI: Inspection: non-distended GI Palp: Yes Soft to palpation, Yes Tenderness to palpation present (GI) (LLQ), No Guarding due to palpation present (GI) and No Rebound tenderness present Other: Pigtail drain with minimal serous output Objective Data Vital Signs Vital Signs: Vital Signs - 24 hr 05/21/23 21:45 05/21/23 20:00 05/22/23 05:50 Temperature 36.4 C 36.2 C L Pulse Rate 95 95 89 Respiratory Rate 16 16 16 Blood Pressure 132/77 117/68 Pulse Oximetry 99 99 97 Oxygen Delivery Room Air 05/22/23 08:34 05/22/23 14:00 Temperature 36.4 C Pulse Rate 92 Respiratory Rate 18 Blood Pressure 130/71 Pulse Oximetry 98 Oxygen Delivery Room Air Intake/Output Intake/Output: Intake & Output 05/19/23 05/20/23 05/21/23 05/22/23 23:59 23:59 23:59 23:59 Intake Total 2915 4300 1570 600 Output Total 360 22 15 12 Balance 1995 6957 1555 588 Meds/Results Medications: Active Medications Generic Name Dose Route Start Last Admin Trade Name Freq PRN Reason Stop Dose Admin Acetaminophen 650 mg 05/16/23 21:37 05/19/23 20:34 Acetaminophen 325 Mg Tablet PO 650 mg Q6H PRN Administration Mild Pain (1-3) or Fever Hydrocodone Bitart/Acetaminophen 1 tab 05/20/23 08:21 05/22/23 15:04 Hydrocodone/Acetaminophen (*Crx) 5-325 Mg Tablet PO 1 tab Q4H PRN Administration Pain Rated 4-6 Amoxicillin/Clavulanate Potassium 1 tablet 05/21/23 21:00 05/22/23 08:34 Amoxicillin/Clavulanate K 875-125 Mg Tab PO 1 tablet Q12HR POOJA Administration Atorvastatin Calcium 40 mg 05/20/23 21:00 05/21/23 21:31 Atorvastatin 40 Mg Tablet PO 40 mg HS POOJA Administration Haloperidol Lactate 2.5 mg 05/19/23 10:39 05/19/23 20:33 Haloperidol Lactate 5 Mg/Ml Vial IV PUSH 2.5 mg Q4H PRN Administration nausea Lisinopril 20 mg 05/20/23 21:00 05/21/23 21:31 Lisinopril 20 Mg Tablet PO 20 mg HS POOJA Administration Loratadine 10 mg 05/19/23 10:45 05/22/23 08:34 Loratadine 10 Mg Tablet PO 10 mg QAM POOJA Administration Metoclopramide HCl 5 mg 05/20/23 16:30 05/22/23 12:43 Metoclopramide Hcl 5 Mg Tablet PO Not Given ACHS [facility] Metronidazole 500 mg 05/21/23 14:00 05/22/23 15:04 Metronidazole 250 Mg Tablet PO 500 mg Q8HR POOJA Administration Morphine Sulfate 2 mg 05/16/23 21:27 05/18/23 09:00 Morphine Sulfate (*Crx) 2 Mg/Ml Inj IV PUSH 2 mg Q4H PRN Administration Pain Rated 7-10 Ondansetron HCl 4 mg 05/16/23 21:27 05/18/23 20:35 Ondansetron Inj 4 Mg/2 Ml Vial IV PUSH 4 mg Q4H PRN Administration Nausea And Vomiting Pantoprazole Sodium 40 mg 05/19/23 09:00 05/22/23 08:34 Pantoprazole Sodium Iv 40 Mg Vial IV PUSH 40 mg Q12HR POOJA Administration Radiology Results: ITS Impressions Abdomen X-Ray 05/20/23 06:43 Impression: Dilated small
[2023-05-22 20:00] VITALS: PULSE 92; RESP 18; O2SAT 98
[2023-05-22 20:31] VITALS: BP 115/69; PULSE 100; RESP 16; TEMP 36.8; O2SAT 96
[2023-05-22] MEDS: ATORVASTATIN 40 MG TABLET PO (21:48)
[2023-05-22] MEDS: lisinopriL 20 MG TABLET PO (21:50)
[2023-05-22 22:05] VITALS: O2SAT 97
[2023-05-23 04:28] VITALS: BP 122/67; PULSE 103; RESP 16; TEMP 36.4; O2SAT 98
[2023-05-23] MEDS: HYDROcodone/acetaminophen (*CRX) 5-325 MG TABLET 1 TAB PO ×4 (04:40→20:19)
[2023-05-23] MEDS: METOCLOPRAMIDE HCL 5 MG TABLET PO ×3 (06:02→20:21)
[2023-05-23] MEDS: metroNIDAZOLE 250 MG TABLET 500 MG PO ×3 (06:02→20:20)
[2023-05-23 06:03] LABS: Anion Gap 1 mmol/L (8-16); Blood Urea Nitrogen 14 mg/dL (9-20); Calcium 7.8 mg/dL (8.4-10.2); Carbon Dioxide 27 mmol/L (22-30); Chloride 100 mmol/L (98-107); Estimated CRCL calculation 73 ml/min; Estimated Glomerular Filt Rate > 60; Glucose 123 mg/dL (65-110); Potassium 3.6 mmol/L (3.4-5.0); Sodium 128 mmol/L (137-145)
[2023-05-23 06:14] LABS: Basophils Percent Auto 0.2 % (0.2-1.2); Eosinophils Absolute Auto 0.1 K/mm3 (0-0.3); Eosinophils Percent Auto 0.6 % (0-4.4); Immature Granulocyte Absolute 0.31 K/mm3 (0.00-0.031); Lymphocytes Absolute Auto 1.31 K/mm3 (0.9-3.2); Lymphocytes Percent Auto 8.3 % (18.3-44.2); Mean Corpuscular HGB Conc 33.3 g/dl (32-36); Mean Corpuscular Hemoglobin 31.1 pg (26-34); Mean Corpuscular Volume 93.4 fl (80-100); Mean Platelet Volume 9.5 fl (7.4-10.4); Monocytes Absolute Auto 0.7 K/mm3 (0.1-0.6); Monocytes Percent Auto 4.4 % (2.6-8.5); Neutrophils Absolute Auto 13.4 K/mm3 (1.3-6.7); Neutrophils Percent Auto 84.5 % (45.5-73.1); Platelet Count Result 353 k/mm3 (150-375); Red Blood Count 2.89 M/mm3 (4.6-6.20); Red Cell Distribution Width 13.4 % (11.5-14.5); White Blood Count 15.8 K/mm3 (4.5-10.0)
[2023-05-23] MEDS: LORATADINE 10 MG TABLET PO (09:08)
[2023-05-23] MEDS: AMOXICILLIN/CLAVULANATE K 875-125 MG TAB 1 TABLET PO ×2 (09:08→20:20)
[2023-05-23] MEDS: PANTOPRAZOLE SODIUM IV 40 MG VIAL IV PUSH ×2 (09:08→20:21)
--- NOTE | 2023-05-23 12:02 | PM.PNGS ---
Progress Note: A&P Assessment and Plan (1) Abscess, intra-abdominal, postoperative: Code(s): T81.43XA - Infection following a procedure, organ and space surgical site, initial encounter Status: Acute Assessment and Plan: WBC unchanged. Did well with percutaneous drain yesterday Repeat CBC in AM. Might need to consider resuming IV antibiotics if not improving. Home when WBC improved. (2) Perforation of colon as colonoscopy complication: Code(s): K63.1 - Perforation of intestine (nontraumatic); K91.71 - Accidental puncture and laceration of a digestive system organ or structure during a digestive system procedure Status: Acute (3) AALIYAH (acute kidney injury): Code(s): N17.9 - Acute kidney failure, unspecified Status: Acute (4) Hypertension: Code(s): I10 - Essential (primary) hypertension Status: Acute Subjective Subjective Date/Time Seen: 05/23/23 12:02 Interval history: Doing well. Pain controlled. Tolerating diet. Bowels moving. No fevers. Exam GI: Inspection: non-distended GI Palp: Yes Soft to palpation, Yes Tenderness to palpation present (GI) (LLQ), No Guarding due to palpation present (GI) and No Rebound tenderness present Other: Pigtail drain with minimal serous output Objective Data Vital Signs Vital Signs: Vital Signs - 24 hr 05/22/23 14:00 05/22/23 20:00 05/22/23 20:31 Temperature 36.4 C 36.8 C Pulse Rate 92 92 100 Respiratory Rate 18 18 16 Blood Pressure 130/71 115/69 Pulse Oximetry 98 98 96 Oxygen Delivery Room Air 05/22/23 22:05 05/23/23 04:28 Temperature 36.4 C Pulse Rate 103 H Respiratory Rate 16 Blood Pressure 122/67 Pulse Oximetry 97 98 Oxygen Delivery Room Air Intake/Output Intake/Output: Intake & Output 05/20/23 05/21/23 05/22/23 05/23/23 23:59 23:59 23:59 23:59 Intake Total 4300 1570 1340 237 Output Total 22 15 1212 Balance 4278 1555 128 237 Meds/Results Medications: Active Medications Generic Name Dose Route Start Last Admin Trade Name Freq PRN Reason Stop Dose Admin Acetaminophen 650 mg 05/16/23 21:37 05/19/23 20:34 Acetaminophen 325 Mg Tablet PO 650 mg Q6H PRN Administration Mild Pain (1-3) or Fever Hydrocodone Bitart/Acetaminophen 1 tab 05/20/23 08:21 05/23/23 09:07 Hydrocodone/Acetaminophen (*Crx) 5-325 Mg Tablet PO 1 tab Q4H PRN Administration Pain Rated 4-6 Amoxicillin/Clavulanate Potassium 1 tablet 05/21/23 21:00 05/23/23 09:08 Amoxicillin/Clavulanate K 875-125 Mg Tab PO 1 tablet Q12HR POOJA Administration Atorvastatin Calcium 40 mg 05/20/23 21:00 05/22/23 21:48 Atorvastatin 40 Mg Tablet PO 40 mg HS POOJA Administration Haloperidol Lactate 2.5 mg 05/19/23 10:39 05/19/23 20:33 Haloperidol Lactate 5 Mg/Ml Vial IV PUSH 2.5 mg Q4H PRN Administration nausea Lisinopril 20 mg 05/20/23 21:00 05/22/23 21:50 Lisinopril 20 Mg Tablet PO 20 mg HS POOJA Administration Loratadine 10 mg 05/19/23 10:45 05/23/23 09:08 Loratadine 10 Mg Tablet PO 10 mg QAM POOJA Administration Metoclopramide HCl 5 mg 05/20/23 16:30 05/23/23 06:02 Metoclopramide Hcl 5 Mg Tablet PO 5 mg ACHS POOJA Administration Metronidazole 500 mg 05/21/23 14:00 05/23/23 06:02 Metronidazole 250 Mg Tablet PO 500 mg Q8HR POOJA Administration Morphine Sulfate 2 mg 05/16/23 21:27 05/18/23 09:00 Morphine Sulfate (*Crx) 2 Mg/Ml Inj IV PUSH 2 mg Q4H PRN Administration Pain Rated 7-10 Ondansetron HCl 4 mg 05/16/23 21:27 05/18/23 20:35 Ondansetron Inj 4 Mg/2 Ml Vial IV PUSH 4 mg Q4H PRN Administration Nausea And Vomiting Pantoprazole Sodium 40 mg 05/19/23 09:00 05/23/23 09:08 Pantoprazole Sodium Iv 40 Mg Vial IV PUSH 40 mg Q12HR POOJA Administration Radiology Results: ITS Impressions Abdomen X-Ray 05/20/23 06:43 Impression: Dilated small bowel loops could reflect ileus vers
[2023-05-23 14:00] VITALS: BP 121/64; PULSE 96; RESP 20; TEMP 37; O2SAT 99
--- NOTE | 2023-05-23 14:34 | PM.IMPN ---
Progress Note: A&P Assessment and Plan (1) Abscess, intra-abdominal, postoperative: Code(s): T81.43XA - Infection following a procedure, organ and space surgical site, initial encounter Status: Acute Assessment and Plan: WBC unchanged. Did well with percutaneous drain yesterday Repeat CBC in AM. Might need to consider resuming IV antibiotics if not improving. Home when WBC improved. (2) Perforation of colon as colonoscopy complication: Code(s): K63.1 - Perforation of intestine (nontraumatic); K91.71 - Accidental puncture and laceration of a digestive system organ or structure during a digestive system procedure Status: Acute Assessment and Plan: See #1 (3) AALIYAH (acute kidney injury): Code(s): N17.9 - Acute kidney failure, unspecified Status: Acute Assessment and Plan: resolved (4) Hypertension: Code(s): I10 - Essential (primary) hypertension Status: Acute Assessment and Plan: Home medications on hold continue to monitor. Stable blood pressures without medication. Blood pressure reviewed on 05/23 (5) Intractable nausea and vomiting: Code(s): R11.2 - Nausea with vomiting, unspecified Status: Acute Assessment and Plan: 05/19: Despite receiving Zofran 3 times a day patient having trouble advancing diet and vomited overnight. He states he has the weakest stomach ever. Added IV haloperidol p.r.n. 05/20: Patient barely tolerating full liquid diet. 05/21: Patient tolerating liquid diet well, surgery to consider advancing diet. 05/22: Doing well with metoclopramide ACHS. Patient on low fiber diet now. 05/23: nausea is resolved at this time (6) Hyponatremia: Code(s): E87.1 - Hypo-osmolality and hyponatremia Status: Acute Assessment and Plan: 05/21: Mild decrease in sodium to 129. Hold HCTZ component of home medications. 05/22: Improving slightly, now 132. 05/23: mild decrease back down to 128 (7) Hyperlipidemia: Code(s): E78.5 - Hyperlipidemia, unspecified Status: Acute Assessment and Plan: Home medications but will restart whenever tolerating full diet. Plan Patient tolerating diet Second abscess identified. Patient tolerating PO antibiotics so far but WBC not resolving with second drain placement Unable to discharge at this time, will DC when WBC improves. May need IV antibiotics again. Hold HCTZ portion of home antihypertensive due to mild hyponatremia Time Spent With Patient Time with patient: 25 - 35 minutes Subjective Date/time seen: 05/23/23 14:34 Interval history: 05/17: Patient admitted yesterday for intra-abdominal abscess, possibly related to recent colonoscopy. He went to Interventional Radiology for CT-guided drainage catheter placement. Patient complaining of significant pain and nausea after procedure. Due to pain patient not interested in further evaluation or questions until his pain is controlled. I spoke to patient's regarding typical course of care for the situations. Deferred to General surgery for further dispo planning. 05/18: Patient seen today had to be removed to private room as he was not able to tolerate a roommate. Pain is better today. Drainage tube in place. He is passing gas overnight. Surgery has advanced diet. 05/19: Patient seen today states that he had vomiting overnight concerned he had GI bleeding but Hemoccult was negative. Patient believes that his stomach is still irritated from anesthesia he had when he had his colonoscopy 2 days before admission. 05/20: Patient having difficulty advancing diet as tolerated. Abscess culture results are in and patient could be deescalated to Augmentin and metronidazole but at this point I do not believe patient can tolerate these oral antibiotics. Patient seems to still need time for GI system to recover. 05/21: Patient feeling better today, periodic dry cough, pain improved and nausea/vomiting improved. 05/13
[2023-05-23 20:00] VITALS: PULSE 103; RESP 20; O2SAT 98
[2023-05-23] MEDS: ATORVASTATIN 40 MG TABLET PO (20:20)
[2023-05-23] MEDS: lisinopriL 20 MG TABLET PO (20:20)
[2023-05-23 22:00] VITALS: BP 128/61; PULSE 103; RESP 20; TEMP 37.5; O2SAT 98
[2023-05-24] MEDS: HYDROcodone/acetaminophen (*CRX) 5-325 MG TABLET 1 TAB PO ×6 (00:05→20:53)
[2023-05-24 06:00] VITALS: BP 123/61; PULSE 95; RESP 20; TEMP 36.6; O2SAT 100
[2023-05-24] MEDS: metroNIDAZOLE 250 MG TABLET 500 MG PO (06:33)
[2023-05-24] MEDS: METOCLOPRAMIDE HCL 5 MG TABLET PO ×4 (06:33→20:44)
[2023-05-24 06:52] LABS: Basophils Percent Auto 0.2 % (0.2-1.2); Eosinophils Absolute Auto 0.1 K/mm3 (0-0.3); Eosinophils Percent Auto 0.7 % (0-4.4); Hematocrit 29.4 % (42.0-52.0); Hemoglobin 9.5 g/dL (14.0-18.0); Immature Granulocyte Absolute 0.25 K/mm3 (0.00-0.031); Immature Granulocyte Percent A 1.4 % (0-0.5); Lymphocytes Absolute Auto 2.07 K/mm3 (0.9-3.2); Lymphocytes Percent Auto 11.8 % (18.3-44.2); Mean Corpuscular HGB Conc 32.3 g/dl (32-36); Mean Corpuscular Hemoglobin 30.7 pg (26-34); Mean Corpuscular Volume 95.1 fl (80-100); Mean Platelet Volume 9.4 fl (7.4-10.4); Monocytes Absolute Auto 0.9 K/mm3 (0.1-0.6); Neutrophils Absolute Auto 14.2 K/mm3 (1.3-6.7); Neutrophils Percent Auto 80.9 % (45.5-73.1); Platelet Count Result 463 k/mm3 (150-375); Red Blood Count 3.09 M/mm3 (4.6-6.20); Red Cell Distribution Width 13.3 % (11.5-14.5); White Blood Count 17.6 K/mm3 (4.5-10.0)
[2023-05-24 07:08] LABS: Anion Gap 2 mmol/L (8-16); Blood Urea Nitrogen 12 mg/dL (9-20); Carbon Dioxide 27 mmol/L (22-30); Chloride 102 mmol/L (98-107); Estimated CRCL calculation 65 ml/min; Estimated Glomerular Filt Rate > 60; Glucose 106 mg/dL (65-110); Potassium 3.6 mmol/L (3.4-5.0); Sodium 131 mmol/L (137-145)
[2023-05-24] MEDS: PIPERACILLIN/TAZ 4.5G/NS 100ML 4.5 GM/100 ML BAG IVPB (08:45)
[2023-05-24] MEDS: metroNIDAZOLE 500 MG/ISO 100ML 500 MG/100 ML BAG 100 MG IVPB ×3 (08:45→18:03)
[2023-05-24] MEDS: PANTOPRAZOLE SODIUM IV 40 MG VIAL IV PUSH ×2 (08:47→20:45)
[2023-05-24] MEDS: LORATADINE 10 MG TABLET PO (08:52)
--- NOTE | 2023-05-24 09:45 | PM.IMPN ---
Progress Note: A&P Assessment and Plan (1) Abscess, intra-abdominal, postoperative: Code(s): T81.43XA - Infection following a procedure, organ and space surgical site, initial encounter Status: Acute Assessment and Plan: white blood cell count continues to elevate despite 2nd percutaneous drain. IV antibiotics re-initiated. ID pharmacist consulted but will not be able to see the patient until Friday. (2) Perforation of colon as colonoscopy complication: Code(s): K63.1 - Perforation of intestine (nontraumatic); K91.71 - Accidental puncture and laceration of a digestive system organ or structure during a digestive system procedure Status: Acute Assessment and Plan: See #1 (3) Hypertension: Code(s): I10 - Essential (primary) hypertension Status: Acute Assessment and Plan: Home medications on hold continue to monitor. Stable blood pressures without medication. Blood pressure reviewed on 05/24 (4) Intractable nausea and vomiting: Code(s): R11.2 - Nausea with vomiting, unspecified Status: Acute Assessment and Plan: 05/19: Despite receiving Zofran 3 times a day patient having trouble advancing diet and vomited overnight. He states he has the weakest stomach ever. Added IV haloperidol p.r.n. 05/20: Patient barely tolerating full liquid diet. 05/21: Patient tolerating liquid diet well, surgery to consider advancing diet. 05/22: Doing well with metoclopramide ACHS. Patient on low fiber diet now. 05/23: nausea is resolved at this time 05/24: No nausea. Patient continues with Reglan before meals. (5) Hyponatremia: Code(s): E87.1 - Hypo-osmolality and hyponatremia Status: Acute Assessment and Plan: 05/21: Mild decrease in sodium to 129. Hold HCTZ component of home medications. 05/22: Improving slightly, now 132. 05/23: mild decrease back down to 128 05/24: Mild improvement sodium 131 today. (6) Hyperlipidemia: Code(s): E78.5 - Hyperlipidemia, unspecified Status: Acute Assessment and Plan: Home medications but will restart whenever tolerating full diet. (7) AALIYAH (acute kidney injury): Code(s): N17.9 - Acute kidney failure, unspecified Status: Acute Assessment and Plan: resolved Plan Initiated IV antibiotics with Zosyn and Flagyl. Oral antibiotics discontinued. Surgery to see patient as well today. PT and OT consulted due to prolonged hospitalization. Time Spent With Patient Time with patient: Greater than 35 minutes Subjective Date/time seen: 05/24/23 09:45 Interval history: 05/17: Patient admitted yesterday for intra-abdominal abscess, possibly related to recent colonoscopy. He went to Interventional Radiology for CT-guided drainage catheter placement. Patient complaining of significant pain and nausea after procedure. Due to pain patient not interested in further evaluation or questions until his pain is controlled. I spoke to patient's regarding typical course of care for the situations. Deferred to General surgery for further dispo planning. 05/18: Patient seen today had to be removed to private room as he was not able to tolerate a roommate. Pain is better today. Drainage tube in place. He is passing gas overnight. Surgery has advanced diet. 05/19: Patient seen today states that he had vomiting overnight concerned he had GI bleeding but Hemoccult was negative. Patient believes that his stomach is still irritated from anesthesia he had when he had his colonoscopy 2 days before admission. 05/20: Patient having difficulty advancing diet as tolerated. Abscess culture results are in and patient could be deescalated to Augmentin and metronidazole but at this point I do not believe patient can tolerate these oral antibiotics. Patient seems to still need time for GI system to recover. 05/21: Patient feeling better today, periodic dry cough, pain improved and nausea/vomiting improved. 8
--- NOTE | 2023-05-24 10:14 | PM.PNGS ---
Progress Note: A&P Assessment and Plan (1) Perforation of colon as colonoscopy complication: Code(s): K63.1 - Perforation of intestine (nontraumatic); K91.71 - Accidental puncture and laceration of a digestive system organ or structure during a digestive system procedure Status: Acute Assessment and Plan: exam largely benign, WBC sl increased, cont drain and abx, if cont to increase will repeat imaging Subjective Subjective Date/Time Seen: 05/24/23 10:14 Interval history: feels ok, no acute issues Review of Systems Review of Systems: All systems reviewed & are unremarkable except as noted in HPI and below Exam Const: General: cooperative, comfortable and no acute distress Resp: Auscultation: clear to auscultation bilaterally Cardio: Rate: regular rate Rhythm: regular rhythm GI: Inspection: normal to inspection and non-distended GI Palp: Yes abdominal tenderness, Yes Soft to palpation and Yes Tenderness to palpation present (GI) Other: [place] c small amount of yellowish drainage Objective Data Vital Signs Vital Signs: Vital Signs - 24 hr 05/23/23 14:00 05/23/23 22:00 05/23/23 20:00 Temperature 37.0 C 37.5 C Pulse Rate 96 103 H 103 H Respiratory Rate 20 20 20 Blood Pressure 121/64 128/61 Pulse Oximetry 99 98 98 Oxygen Delivery Room Air 05/24/23 06:00 05/24/23 09:10 Temperature 36.6 C Pulse Rate 95 Respiratory Rate 20 Blood Pressure 123/61 Pulse Oximetry 100 Oxygen Delivery Room Air Intake/Output Intake/Output: Intake & Output 05/21/23 05/22/23 05/23/23 05/24/23 23:59 23:59 23:59 23:59 Intake Total 1570 1340 1377 1923 Output Total 15 1212 30 Balance 6709 642 5826 1893 Meds/Results Medications: Active Medications Generic Name Dose Route Start Last Admin Trade Name Freq PRN Reason Stop Dose Admin Acetaminophen 650 mg 05/16/23 21:37 05/19/23 20:34 Acetaminophen 325 Mg Tablet PO 650 mg Q6H PRN Administration Mild Pain (1-3) or Fever Hydrocodone Bitart/Acetaminophen 1 tab 05/20/23 08:21 05/24/23 08:51 Hydrocodone/Acetaminophen (*Crx) 5-325 Mg Tablet PO 1 tab Q4H PRN Administration Pain Rated 4-6 Atorvastatin Calcium 40 mg 05/20/23 21:00 05/23/23 20:20 Atorvastatin 40 Mg Tablet PO 40 mg HS POOJA Administration Haloperidol Lactate 2.5 mg 05/19/23 10:39 05/19/23 20:33 Haloperidol Lactate 5 Mg/Ml Vial IV PUSH 2.5 mg Q4H PRN Administration nausea Piperacillin/Tazobactam/Dextrose 3.375 gm in 50 mls @ 100 mls/hr 05/24/23 14:00 Zosyn 3.375 Gm/Ns 50 Ml IVPB Q6HR POOJA Metronidazole 500 mg in 100 mls @ 100 mls/hr 05/24/23 08:00 05/24/23 09:50 Flagyl 500 Mg/Iso Soln 100 Ml IVPB Infused Q6HR POOJA Infusion Lisinopril 20 mg 05/20/23 21:00 05/23/23 20:20 Lisinopril 20 Mg Tablet PO 20 mg HS POOJA Administration Loratadine 10 mg 05/19/23 10:45 05/24/23 08:52 Loratadine 10 Mg Tablet PO 10 mg QAM POOJA Administration Metoclopramide HCl 5 mg 05/20/23 16:30 05/24/23 06:33 Metoclopramide Hcl 5 Mg Tablet PO 5 mg ACHS POOJA Administration Morphine Sulfate 2 mg 05/16/23 21:27 05/18/23 09:00 Morphine Sulfate (*Crx) 2 Mg/Ml Inj IV PUSH 2 mg Q4H PRN Administration Pain Rated 7-10 Ondansetron HCl 4 mg 05/16/23 21:27 05/18/23 20:35 Ondansetron Inj 4 Mg/2 Ml Vial IV PUSH 4 mg Q4H PRN Administration Nausea And Vomiting Pantoprazole Sodium 40 mg 05/19/23 09:00 05/24/23 08:47 Pantoprazole Sodium Iv 40 Mg Vial IV PUSH 40 mg Q12HR POOJA Administration Radiology Results: ITS Impressions Abdomen X-Ray 05/20/23 06:43 Impression: Dilated small bowel loops could reflect ileus versus small bowel obstruction. Left lower quadrant percutaneous drainage catheter. Abdomen/Pelvis CT 05/22/23 09:35 IMPRESSION: 1. 6.8 x 4.0 x 3.5 cm abscess in left anterior inferior peritoneum. Consider CT-guided drain placement. 2. 2.8 x 1
[2023-05-24] MEDS: PIPERACILLN/TAZ 3.375GM/NS50ML 3.375 GM/50 ML BAG IVPB ×2 (13:22→18:03)
[2023-05-24 14:00] VITALS: BP 112/62; PULSE 92; RESP 18; TEMP 36.1; O2SAT 100
--- NOTE | 2023-05-24 15:41 | PCPTNOTE ---
received PT orders for pt; EMR reviewed, talked with pt, he is getting up to BR indep and stated he does not need any therapy; contacted [facility] Cohen, informed of this and received d/c orders.
[2023-05-24] MEDS: ATORVASTATIN 40 MG TABLET PO (20:44)
[2023-05-24] MEDS: lisinopriL 20 MG TABLET PO (20:44)
[2023-05-24 21:45] VITALS: O2SAT 100
[2023-05-24 22:00] VITALS: BP 117/63; PULSE 100; RESP 20; TEMP 37; O2SAT 100
[2023-05-25] MEDS: PIPERACILLN/TAZ 3.375GM/NS50ML 3.375 GM/50 ML BAG IVPB ×5 (00:08→23:32)
[2023-05-25] MEDS: metroNIDAZOLE 500 MG/ISO 100ML 500 MG/100 ML BAG 100 MG IVPB ×5 (00:08→23:29)
[2023-05-25 05:06] VITALS: BP 127/64; PULSE 95; RESP 20; TEMP 36.9; O2SAT 98
[2023-05-25] MEDS: METOCLOPRAMIDE HCL 5 MG TABLET PO ×4 (05:17→20:42)
[2023-05-25 07:00] LABS: Basophils Percent Auto 0.2 % (0.2-1.2); Eosinophils Absolute Auto 0.1 K/mm3 (0-0.3); Hematocrit 25.5 % (42.0-52.0); Hemoglobin 8.3 g/dL (14.0-18.0); Immature Granulocyte Absolute 0.14 K/mm3 (0.00-0.031); Immature Granulocyte Percent A 1.1 % (0-0.5); Lymphocytes Absolute Auto 1.28 K/mm3 (0.9-3.2); Lymphocytes Percent Auto 10.4 % (18.3-44.2); Mean Corpuscular HGB Conc 32.5 g/dl (32-36); Mean Corpuscular Volume 95.1 fl (80-100); Mean Platelet Volume 9.5 fl (7.4-10.4); Monocytes Absolute Auto 0.7 K/mm3 (0.1-0.6); Monocytes Percent Auto 5.8 % (2.6-8.5); Neutrophils Absolute Auto 10.1 K/mm3 (1.3-6.7); Neutrophils Percent Auto 81.5 % (45.5-73.1); Platelet Count Result 457 k/mm3 (150-375); Red Blood Count 2.68 M/mm3 (4.6-6.20); Red Cell Distribution Width 13.4 % (11.5-14.5); White Blood Count 12.3 K/mm3 (4.5-10.0)
[2023-05-25 07:11] LABS: Anion Gap 5 mmol/L (8-16); Blood Urea Nitrogen 12 mg/dL (9-20); Calcium 7.7 mg/dL (8.4-10.2); Carbon Dioxide 25 mmol/L (22-30); Chloride 102 mmol/L (98-107); Estimated CRCL calculation 65 ml/min; Estimated Glomerular Filt Rate > 60; Glucose 104 mg/dL (65-110); Potassium 3.6 mmol/L (3.4-5.0); Sodium 132 mmol/L (137-145)
[2023-05-25] MEDS: PANTOPRAZOLE SODIUM IV 40 MG VIAL IV PUSH ×2 (09:46→20:42)
[2023-05-25] MEDS: LORATADINE 10 MG TABLET PO (09:49)
--- NOTE | 2023-05-25 10:04 | PM.IMPN ---
Progress Note: A&P Assessment and Plan (1) Abscess, intra-abdominal, postoperative: Code(s): T81.43XA - Infection following a procedure, organ and space surgical site, initial encounter Status: Acute Assessment and Plan: 05/24 white blood cell count continues to elevate despite 2nd percutaneous drain. IV antibiotics re-initiated. ID pharmacist consulted but will not be able to see the patient until Friday. 05/25: white blood cell count starting to decrease after being placed back on IV antibiotics. Desire consult with ID pharmacist on optimal oral regimen for discharge As patient was on Augmentin and Flagyl and still had increasing white blood cell count after pigtail placement and abscess drainage. (2) Perforation of colon as colonoscopy complication: Code(s): K63.1 - Perforation of intestine (nontraumatic); K91.71 - Accidental puncture and laceration of a digestive system organ or structure during a digestive system procedure Status: Acute Assessment and Plan: See #1 (3) Hypertension: Code(s): I10 - Essential (primary) hypertension Status: Acute Assessment and Plan: Home medications on hold continue to monitor. Stable blood pressures without medication. Blood pressure reviewed on 05/25 (4) Intractable nausea and vomiting: Code(s): R11.2 - Nausea with vomiting, unspecified Status: Acute Assessment and Plan: 05/19: Despite receiving Zofran 3 times a day patient having trouble advancing diet and vomited overnight. He states he has the weakest stomach ever. Added IV haloperidol p.r.n. 05/20: Patient barely tolerating full liquid diet. 05/21: Patient tolerating liquid diet well, surgery to consider advancing diet. 05/22: Doing well with metoclopramide ACHS. Patient on low fiber diet now. 05/23: nausea is resolved at this time 05/24: No nausea. Patient continues with Reglan before meals. 05/25: Resolved (5) Hyponatremia: Code(s): E87.1 - Hypo-osmolality and hyponatremia Status: Acute Assessment and Plan: 05/21: Mild decrease in sodium to 129. Hold HCTZ component of home medications. 05/22: Improving slightly, now 132. 05/23: mild decrease back down to 128 05/24: Mild improvement sodium 131 today. 05/25: Up to 132 today (6) Hyperlipidemia: Code(s): E78.5 - Hyperlipidemia, unspecified Status: Acute Assessment and Plan: Home medications (7) AALIYAH (acute kidney injury): Code(s): N17.9 - Acute kidney failure, unspecified Status: Acute Assessment and Plan: resolved Plan IV antibiotics Zosyn and Flagyl to continue until ID pharmacist consult tomorrow patient otherwise doing well and feel like he can discharge if still improving tomorrow after oral antibiotic regimen is decided on Time Spent With Patient Time with patient: Greater than 35 minutes Subjective Date/time seen: 05/25/23 10:04 Interval history: 05/17: Patient admitted yesterday for intra-abdominal abscess, possibly related to recent colonoscopy. He went to Interventional Radiology for CT-guided drainage catheter placement. Patient complaining of significant pain and nausea after procedure. Due to pain patient not interested in further evaluation or questions until his pain is controlled. I spoke to patient's regarding typical course of care for the situations. Deferred to General surgery for further dispo planning. 05/18: Patient seen today had to be removed to private room as he was not able to tolerate a roommate. Pain is better today. Drainage tube in place. He is passing gas overnight. Surgery has advanced diet. 05/19: Patient seen today states that he had vomiting overnight concerned he had GI bleeding but Hemoccult was negative. Patient believes that his stomach is still irritated from anesthesia he had when he had his colonoscopy 2 days before admission. 05/20: Patient having difficulty advancing diet as tolerate
--- NOTE | 2023-05-25 11:32 | PM.PNGS ---
Progress Note: A&P Assessment and Plan (1) Perforation of colon as colonoscopy complication: Code(s): K63.1 - Perforation of intestine (nontraumatic); K91.71 - Accidental puncture and laceration of a digestive system organ or structure during a digestive system procedure Status: Acute Assessment and Plan: better, exam improved, cont abx, WBC down to 12k Subjective Subjective Date/Time Seen: 05/25/23 11:32 Interval history: feels better today, less pain Review of Systems Review of Systems: All systems reviewed & are unremarkable except as noted in HPI and below Exam Const: General: cooperative, comfortable and no acute distress Resp: Auscultation: clear to auscultation bilaterally Cardio: Rate: regular rate Rhythm: regular rhythm GI: Inspection: normal to inspection GI Palp: Yes abdominal tenderness, Yes Soft to palpation, Yes Tenderness to palpation present (GI), No Guarding due to palpation present (GI) and No Rigid due to palpation Other: drain c serous output Objective Data Vital Signs Vital Signs: Vital Signs - 24 hr 05/24/23 14:00 05/24/23 22:00 05/24/23 20:00 Temperature 36.1 C L 37.0 C Pulse Rate 92 100 Respiratory Rate 18 20 Blood Pressure 112/62 117/63 Pulse Oximetry 100 100 Oxygen Delivery Room Air 05/24/23 21:45 05/25/23 05:06 Temperature 36.9 C Pulse Rate 95 Respiratory Rate 20 Blood Pressure 127/64 Pulse Oximetry 100 98 Oxygen Delivery Room Air Intake/Output Intake/Output: Intake & Output 05/22/23 05/23/23 05/24/23 05/25/23 23:59 23:59 23:59 23:59 Intake Total 1340 1377 2937 2025 Output Total 1212 30 Balance 128 1377 2907 2025 Meds/Results Medications: Active Medications Generic Name Dose Route Start Last Admin Trade Name Freq PRN Reason Stop Dose Admin Acetaminophen 650 mg 05/16/23 21:37 05/19/23 20:34 Acetaminophen 325 Mg Tablet PO 650 mg Q6H PRN Administration Mild Pain (1-3) or Fever Hydrocodone Bitart/Acetaminophen 1 tab 05/20/23 08:21 05/24/23 20:53 Hydrocodone/Acetaminophen (*Crx) 5-325 Mg Tablet PO 1 tab Q4H PRN Administration Pain Rated 4-6 Atorvastatin Calcium 40 mg 05/20/23 21:00 05/24/23 20:44 Atorvastatin 40 Mg Tablet PO 40 mg HS POOJA Administration Haloperidol Lactate 2.5 mg 05/19/23 10:39 05/19/23 20:33 Haloperidol Lactate 5 Mg/Ml Vial IV PUSH 2.5 mg Q4H PRN Administration nausea Piperacillin/Tazobactam/Dextrose 3.375 gm in 50 mls @ 100 mls/hr 05/24/23 14:00 05/25/23 11:27 Zosyn 3.375 Gm/Ns 50 Ml IVPB 100 mls/hr Q6HR POOJA Administration Metronidazole 500 mg in 100 mls @ 100 mls/hr 05/24/23 08:00 05/25/23 06:17 Flagyl 500 Mg/Iso Soln 100 Ml IVPB Infused Q6HR POOJA Infusion Lisinopril 20 mg 05/20/23 21:00 05/24/23 20:44 Lisinopril 20 Mg Tablet PO 20 mg HS POOJA Administration Loratadine 10 mg 05/19/23 10:45 05/25/23 09:49 Loratadine 10 Mg Tablet PO 10 mg QAM POOJA Administration Metoclopramide HCl 5 mg 05/20/23 16:30 05/25/23 11:27 Metoclopramide Hcl 5 Mg Tablet PO 5 mg ACHS POOJA Administration Morphine Sulfate 2 mg 05/16/23 21:27 05/18/23 09:00 Morphine Sulfate (*Crx) 2 Mg/Ml Inj IV PUSH 2 mg Q4H PRN Administration Pain Rated 7-10 Ondansetron HCl 4 mg 05/16/23 21:27 05/18/23 20:35 Ondansetron Inj 4 Mg/2 Ml Vial IV PUSH 4 mg Q4H PRN Administration Nausea And Vomiting Pantoprazole Sodium 40 mg 05/19/23 09:00 05/25/23 09:46 Pantoprazole Sodium Iv 40 Mg Vial IV PUSH 40 mg Q12HR POOJA Administration Radiology Results: ITS Impressions Abdomen X-Ray 05/20/23 06:43 Impression: Dilated small bowel loops could reflect ileus versus small bowel obstruction. Left lower quadrant percutaneous drainage catheter. Abdomen/Pelvis CT 05/22/23 09:35 IMPRESSION: 1. 6.8 x 4.0 x 3.5 cm abscess in left anterior inferior peritoneum. Consider CT-guided drain
[2023-05-25 14:00] VITALS: BP 108/52; PULSE 88; RESP 12; TEMP 36.5; O2SAT 99
[2023-05-25] MEDS: lisinopriL 20 MG TABLET PO (20:42)
[2023-05-25] MEDS: ATORVASTATIN 40 MG TABLET PO (20:42)
[2023-05-25 22:00] VITALS: BP 136/80; PULSE 98; RESP 18; TEMP 36.7; O2SAT 100
[2023-05-26] MEDS: metroNIDAZOLE 500 MG/ISO 100ML 500 MG/100 ML BAG 100 MG IVPB ×2 (05:23→12:10)
[2023-05-26] MEDS: PIPERACILLN/TAZ 3.375GM/NS50ML 3.375 GM/50 ML BAG IVPB ×2 (05:24→13:27)
[2023-05-26] MEDS: METOCLOPRAMIDE HCL 5 MG TABLET PO (05:25)
[2023-05-26 06:00] VITALS: BP 118/60; PULSE 94; RESP 16; TEMP 36.6; O2SAT 98
[2023-05-26 06:33] LABS: Basophils Percent Auto 0.2 % (0.2-1.2); Eosinophils Absolute Auto 0.1 K/mm3 (0-0.3); Eosinophils Percent Auto 0.6 % (0-4.4); Hemoglobin 8.3 g/dL (14.0-18.0); Immature Granulocyte Absolute 0.07 K/mm3 (0.00-0.031); Immature Granulocyte Percent A 0.6 % (0-0.5); Lymphocytes Absolute Auto 1.27 K/mm3 (0.9-3.2); Lymphocytes Percent Auto 11.5 % (18.3-44.2); Mean Corpuscular HGB Conc 33.2 g/dl (32-36); Mean Corpuscular Hemoglobin 31.2 pg (26-34); Mean Platelet Volume 9.4 fl (7.4-10.4); Monocytes Absolute Auto 0.7 K/mm3 (0.1-0.6); Monocytes Percent Auto 6.2 % (2.6-8.5); Neutrophils Absolute Auto 8.9 K/mm3 (1.3-6.7); Neutrophils Percent Auto 80.9 % (45.5-73.1); Platelet Count Result 492 k/mm3 (150-375); Red Blood Count 2.66 M/mm3 (4.6-6.20); Red Cell Distribution Width 13.2 % (11.5-14.5)
[2023-05-26 06:47] LABS: Anion Gap 2 mmol/L (8-16); Blood Urea Nitrogen 10 mg/dL (9-20); Calcium 7.8 mg/dL (8.4-10.2); Carbon Dioxide 25 mmol/L (22-30); Chloride 102 mmol/L (98-107); Estimated CRCL calculation 73 ml/min; Estimated Glomerular Filt Rate > 60; Glucose 107 mg/dL (65-110); Potassium 3.4 mmol/L (3.4-5.0); Sodium 129 mmol/L (137-145)
--- NOTE | 2023-05-26 07:58 | PHA.ABX.ID ---
Pharmacy ID Consult - Stewardship Interventions Type of Interventions: Discharge Recommendation Pharmacy ID Note: Subjective Pharmacy was consulted by Natasha Cohen regarding infectious diseases for Robin Pickering. Robin Pickering is a 68 year old M with concerns regarding de-escalation or oral conversion options. Background The patient is currently receiving Piperacillin/tazobactam and metronidazole. The patient's PMH includes two placements of CT catheter drain on 05/17 and 05/22 for persistent LLQ abscess with cultures growing klebsiella pneumoniae both times and b. fragilis and Group B Streptococcus on the 05/17 culture. The klebsiella pneumoniae isolates lacked any notable resistances to common antibiotics on the panel ran by the reference lab. Patient's WBC has been decreasing last few days and has been afebrile. Microbiology 05/24/23 08:11 Blood Blood Culture - Preliminary 05/24/23 08:10 Blood Blood Culture - Preliminary 05/22/23 14:21 Abscess Anaerobic Culture - Preliminary 05/22/23 14:21 Abscess Aerobic Culture - Final Klebsiella pnemoniae 05/17/23 12:03 Abscess Anaerobic Culture - Final 05/17/23 12:03 Abscess Aerobic Culture - Final Bacteroides fragilis group Klebsiella pnemoniae Group B Streptococcus isolated 05/16/23 21:43 Blood Blood Culture - Final 05/16/23 21:43 Blood Blood Culture - Final Laboratory Tests 05/24/23 05/25/23 05/26/23 06:34 06:21 05:58 WBC 17.6 H 12.3 H 11.0 H Assessment/Recommendation/Discussion Consulted for de-escalation or oral conversion options, spoke with consulting provider's (hospitalist) automotive fuel injection servicer seeing this patient today (Rosette Morataya). Can consider multiple options given sensitivities, however, Amoxicillin/Clavulanate 875 mg q12h and metronidazole 500 mg q8h seem to be an appropriate regimen for oral conversion. Will leave discussion for duration of therapy to provider and surgery team, however should consider counting duration from final source control as opposed to overall therapy length from onset. Will sign off at this time. Thank you for the interesting consult. Miguel Vidal, PharmD Infectious Disease/Antimicrobial Stewardship Pharmacist 05/26/23; 0758 WBC 11.0 K/mm3 (4.5-10.0) H 05/26/23 05:58 Creatinine 0.80 mg/dL (0.7-1.3) 05/26/23 05:58 Estim Creat Clear Calc 73 ml/min 05/26/23 05:58
[2023-05-26] MEDS: LORATADINE 10 MG TABLET PO (08:15)
[2023-05-26] MEDS: PANTOPRAZOLE 40 MG TABLET PO (08:15)
--- NOTE | 2023-05-26 08:58 | PCNWS ---
Weekly nutritional screen. Patient is tolerating current low fiber diet with adequate intake. No weight loss reported. No nutritional needs at this time.
[2023-05-26 13:38] VITALS: BP 118/78; PULSE 84; RESP 20; TEMP 36; O2SAT 100
--- NOTE | 2023-05-26 14:57 | PM.DS ---
DS: Admitting Diagnosis Discharge Date 05/26/23 Admitting Diagnosis pelvic abscess DS: Discharge Diagnosis Discharge Diagnosis (1) Abscess, intra-abdominal, postoperative: Code(s): T81.43XA - Infection following a procedure, organ and space surgical site, initial encounter Status: Acute (2) Perforation of colon as colonoscopy complication: Code(s): K63.1 - Perforation of intestine (nontraumatic); K91.71 - Accidental puncture and laceration of a digestive system organ or structure during a digestive system procedure Status: Acute (3) Hypertension: Code(s): I10 - Essential (primary) hypertension Status: Acute (4) Intractable nausea and vomiting: Code(s): R11.2 - Nausea with vomiting, unspecified Status: Acute (5) Hyponatremia: Code(s): E87.1 - Hypo-osmolality and hyponatremia Status: Acute (6) Hyperlipidemia: Code(s): E78.5 - Hyperlipidemia, unspecified Status: Acute (7) AALIYAH (acute kidney injury): Code(s): N17.9 - Acute kidney failure, unspecified Status: Acute DS: Summary Hospital Course Hospital Course: This is a 68-year-old patient that has a past medical history of hypertension hyperlipidemia that presented to the ED on 05/16/2023 due to acute abdominal pain. He had colonoscopy 2 days prior at [facility] where he had 2 polyps removed. He was found to have a white count of 14.3, BUN and creatinine of 92/1.7. CT abdomen pelvis revealed inferior peritoneal abscess with recommendation of CT-guided drainage. General surgery was consulted and IR drained patient's abscess. He was started on IV fluids, morphine, Zofran and Zosyn. Patient's BUN and creatinine improved with IV fluids over hospital stay. Patient received IV antibiotics during hospital stay and was attempted to transition to oral antibiotics on 05/22/2023. Patient's white blood cell count began to start rising and a repeat CT abdomen pelvis revealing a 2nd abscess. IR then placed drain. IV antibiotics then resumed due to non improving white blood cell count. After couple days on IV antibiotics patient's white blood cell count slowly came down. ID pharmacist was consulted and he recommended patient be transition to p.o. Augmentin and Flagyl. Patient's symptoms were markedly improved his white blood cell count improved to 11 on day of discharge. Patient's labs and vital signs are stable and he is medically clear for discharge. Time Spent with Patient Time attestation: Total time spent providing and/or coordinating discharge services: Exam Narrative: GENERAL: Comfortable, no acute distress HENMT: moist mucous membranes EYES: EOM intact b/l NECK: no lymphadenopathy RESPIRATORY: clear to auscultation CARDIO: RRR GI: soft, nontender, bowel sounds present SKIN: no rashes EXTREMITIES: no edema, redness or tenderness DS: Data Data Completed and Pending Labs on day of discharge: Labs from last 24 hours 05/26/23 05:58 WBC 11.0 H RBC 2.66 L Hgb 8.3 L Hct 25.0 L MCV 94.0 MCH 31.2 MCHC 33.2 RDW 13.2 Plt Count 492 H MPV 9.4 Immature Gran % (Auto) 0.6 H Neut % (Auto) 80.9 H Lymph % (Auto) 11.5 L [place] % (Auto) 6.2 Eos % (Auto) 0.6 Baso % (Auto) 0.2 Lymph # (Auto) 1.27 [place] # (Auto) 0.7 H Eos # (Auto) 0.1 Baso # (Auto) 0.0 Abs Immat Gran (auto) 0.07 H Absolute Neuts (auto) 8.9 H Absolute Nucleated RBC 0.0 Nucleated RBC % 0.0 Sodium 129 L Potassium 3.4 Chloride 102 Carbon Dioxide 25 Anion Gap 2 L BUN 10 Creatinine 0.80 Estim Creat Clear Calc 73 Estimated GFR > 60 Glucose 107 Calcium 7.8 L Preliminary micro results at discharge 05/22/23 14:21 Anaerobic Culture - Preliminary Abscess 05/24/23 08:11 Blood Culture - Preliminary Blood 05/24/23 08:10 Blood Culture - Preliminary Blood Discharge Plan Discharge Attending physician on discharge: Edgardo Mahajan
--- NOTE | 2023-05-26 17:52 | PM.PNGS ---
Progress Note: A&P Assessment and Plan (1) Abscess, intra-abdominal, postoperative: Code(s): T81.43XA - Infection following a procedure, organ and space surgical site, initial encounter Status: Acute Assessment and Plan: WBC improved. Drain output minimal. Drain removed today. OK to discharge from surgical standpoint. Continue soft diet for 1-2 more weeks Follow up in office in 2 weeks. (2) Perforation of colon as colonoscopy complication: Code(s): K63.1 - Perforation of intestine (nontraumatic); K91.71 - Accidental puncture and laceration of a digestive system organ or structure during a digestive system procedure Status: Acute (3) Hypertension: Code(s): I10 - Essential (primary) hypertension Status: Acute Subjective Subjective Date/Time Seen: 05/26/23 17:52 Interval history: Feeling better. Tolerating diet. No fevers. Pain improved. Exam GI: Inspection: non-distended GI Palp: Yes Soft to palpation and Yes Tenderness to palpation present (GI) (minimal LLQ) Other: LLQ pigtail drain with minimal serous output Objective Data Vital Signs Vital Signs: Vital Signs - 24 hr 05/25/23 22:00 05/25/23 20:00 05/26/23 06:00 Temperature 36.7 C 36.6 C Pulse Rate 98 94 Respiratory Rate 18 16 Blood Pressure 136/80 118/60 Pulse Oximetry 100 98 Oxygen Delivery Room Air 05/26/23 13:38 Temperature 36.0 C L Pulse Rate 84 Respiratory Rate 20 Blood Pressure 118/78 Pulse Oximetry 100 Oxygen Delivery Intake/Output Intake/Output: Intake & Output 05/23/23 05/24/23 05/25/23 05/26/23 23:59 23:59 23:59 23:59 Intake Total 1377 2937 2863 1047 Output Total 30 15 15 Balance 1377 2907 2848 1032 Meds/Results Radiology Results: ITS Impressions Abdomen X-Ray 05/20/23 06:43 Impression: Dilated small bowel loops could reflect ileus versus small bowel obstruction. Left lower quadrant percutaneous drainage catheter. Abdomen/Pelvis CT 05/22/23 09:35 IMPRESSION: 1. 6.8 x 4.0 x 3.5 cm abscess in left anterior inferior peritoneum. Consider CT-guided drain placement. 2. 2.8 x 1.7 x 2.3 cm perirectal abscess near the perisigmoid drain. 3. Small volume of perihepatic ascites. 4. Dilated loops of small bowel, consistent with adynamic ileus versus partial small bowel obstruction. Catheter Placement CT 05/22/23 14:47 IMPRESSION: 1. Successful CT-guided left lower quadrant abdominal abscess drainage. 2. 5 mL pacheco fluid was sent for aerobic and anaerobic cultures. Labs Labs: Laboratory Results - last 24 hr 05/26/23 05:58 WBC 11.0 H RBC 2.66 L Hgb 8.3 L Hct 25.0 L MCV 94.0 MCH 31.2 MCHC 33.2 RDW 13.2 Plt Count 492 H MPV 9.4 Immature Gran % (Auto) 0.6 H Neut % (Auto) 80.9 H Lymph % (Auto) 11.5 L [place] % (Auto) 6.2 Eos % (Auto) 0.6 Baso % (Auto) 0.2 Lymph # (Auto) 1.27 [place] # (Auto) 0.7 H Eos # (Auto) 0.1 Baso # (Auto) 0.0 Abs Immat Gran (auto) 0.07 H Absolute Neuts (auto) 8.9 H Absolute Nucleated RBC 0.0 Nucleated RBC % 0.0 Sodium 129 L Potassium 3.4 Chloride 102 Carbon Dioxide 25 Anion Gap 2 L BUN 10 Creatinine 0.80 Estim Creat Clear Calc 73 Estimated GFR > 60 Glucose 107 Calcium 7.8 L
== END 2023-05-26 16:50 | disposition home or self-care (01) | DRG 862 ==
LOC: ANHED 18:13 → ANH3MEDSUR 19:16
PROVIDERS: Emergency Medicine; Nurse Practitioner; Admitting Provider Internal Medicine; Emergency Provider Student in an Organized Health Care Education/Training Program; PCP Internal Medicine; Visit Provider Internal Medicine Critical Care Medicine
DX: T81.43XA Infection following a procedure, organ and space surgical site, initial encounter (principal); K65.1 Peritoneal abscess; B96.1 Klebsiella pneumoniae [K. pneumoniae] as the cause of diseases classified elsewhere; B95.1 Streptococcus, group B, as the cause of diseases classified elsewhere; Y73.8 Miscellaneous gastroenterology and urology devices associated with adverse incidents, not elsewhere classified
CPT/HCPCS: 36415; 74018; 74177; 75989; 80048; 80053; 81001; 82274; 83605; 83690; 83735; 84484; 85025; 85027; 85610; 85730; 87040; 87070; 87075; 87076; 87077; 87147; 87186; 87205; 93005; 96361; 96365; 96374; 96375; 96376; 99285; A9270; C1729; C1769; C9113; G0378; J1630; J1836; J2270; J2405; J2543; J3010; J3480; J7030; J7040; J7120; Q9967

== ENCOUNTER 2025-01-02 11:48 | Emergency (ER) | payer OTHER, SELFPAY ==
--- NOTE | ~2025-01-02 | CT_ITS ---
EXAMINATION: CTA chest PE protocol DATE: 01/02/2025 16:54 INDICATION: Chest pain, elevated d-dimer. TECHNIQUE: Computed tomography angiography (CTA) of the chest was performed with 100 mL Omnipaque-350 intravenous contrast timed to evaluate the pulmonary arteries. Coronal maximum intensity projection 3D-reconstructions were created by the technologist. Automated exposure control and iterative reconst ruction technique were employed. Exam dose: 298.17 mGy-cm total exam DLP. COMPARISON: 01/02/2025 2 view chest FINDINGS: There is diagnostic contrast enhancement of the pulmonary arteries and no evidence of pulmo nary embolism. No pulmonary infiltrate or consolidation. No thoracic aortic aneurysm or dissection. There is thoracic and abdominal aortic calcification. No hilar or mediastinal mass lesion or lymphadenopathy. Normal heart size. There is coronary artery calcification. No pericardial or pleural effusion. Normal morphology of the adrenal glands. 4.5 cm left renal cyst. Dextroscoliosis and degenerative change of the thoracic spine. Degenerative change of the lower cervi winter and included upper lumbar spine. No suspicious osteolytic or osteoblastic lesions are noted. IMPRESSION: No evidence of pulmonary embolism Reviewed, dictated and finalized at [facility] Reviewed, dictated and finalized at [facility].
--- NOTE | ~2025-01-02 | XR_ITS ---
XR chest 2V DATE: 01/02/2025 13:14 INDICATION: Chest pain TECHNIQUE: 2 views COMPARISON: None FINDINGS: Normal heart size. Aortic arch calcification. No hilar or mediastinal enlargement. Moderate bilateral hyperinflation. No pulmonary infiltrate or consolidation, pleural effusion or pulm onary vascular congestion or pneumothorax. Degenerative spurring and dextroscoliosis of the thoracic spine. IMPRESSION: Moderate hyperinflation; no active cardiopulmonary disease Reviewed, dictated and finalized at [facility].
--- OUTSIDE RECORDS SUMMARY | 2025-01-02 11:50 | XMS_ITS | Referral Summary ---
Author Organization [facility] [place] [facility] Address [address] [place] [address] Care Team Providers Care Acoustic Engineer Name Role Phone Kleber Davis MD Primary Care Provider [phone] Narciso Hernandez MD Unavailable [phone] Allergies No known active allergies Medications lisinopril-hydr oCHLOROthiazide (ZESTORETIC) 20-25 mg per tablet Take 1 tablet by mouth nightly 1 Active atorvastatin (LIPITOR) 40 mg tablet Take 40 mg by mouth nightly Active loratadine (CLARITIN) 10 mg tablet Take 10 mg by mouth daily Active turmeric root extract 500 mg capsule Take 1 tablet by mouth daily Active ascorbic acid (VITAMIN C) 1,000 mg tablet Take 1,000 mg by mouth daily Active cyanocobalamin (Vitamin B-12) 500 mcg tabletIndicatio ns:Prevention of Vitamin B12 Deficiency Take 500 mcg by mouth daily Active vitamin E acid succinate (vitamin E succinate) 67 mg (100 unit) tablet Take 67 mg by mouth daily Active potassium 99 mg tablet Take 1 tablet by mouth daily Active coenzyme Q10 100 mg capsule Take 100 mg by mouth daily Active multivitamin capsule Take 1 capsule by mouth daily Ultra man max Active calcium carbonate-vitam in D3 1,500 mg (600mg elemental) -800 unit per tablet Take 1 tablet by mouth daily Active qdozneym-qix-rg ondroit-vit D3 750 mg-125 mg -600 mg tablet Take 1 capsule by mouth 2 (two) times a day Active bb-zh-zxsP-asbN e-Huq-Vra-hc124 (Airborne, ascorbate sodium,) 333-1.7 mg tablet,chewable Take 2 tablets by mouth nightly Active amoxicillin (AMOXIL) 500 mg tablet/capsule Take four capsules one hour prior to any dental procedure 12 tablet/capsul e 4 Active Active Problems Problem Noted Date Diagnosed Date Status post total left knee replacement 09/26/20 22 Primary osteoarthritis of left knee 07/19/2022 Overview (07/19/2022): Added automatically from request for surgery [id number] Status post total right knee replacement 022 Primary osteoarthritis of right knee 12/19/2021 Overview (12/19/2021): Added automatically from request for surgery [id number] Pain of left lower extremity 02/21/2016 Pain of right lower extremity 02/21/2016 Social History Tobacco Use Types Packs/Day Years Used Date Smoking Tobacco: Never Smokeless Tobacco: Never Tobacco Cessation:Counseling Given: Not Answered Social Connection and Isolat ion Panel [NHANES] Answer Date Recorded In a typical week, how many times do you talk on the phone with family, friends, or neighbors? More than three times a week 09/27/2022 How often do you get togethe r with friends or relatives? More than three times a week 09/27/2022 How often do you attend chur or mu-ism services? Never 09/27/2022 Do you belong to any clubs o r organizations such as anglican groups, unions, fraternal or athletic groups, or school groups? No 09/27/2022 How often do you attend meet ings of the clubs or organizations you belong to? Never 09/27/2022 Are you , , di vorced, , never , or living with a partner? 09/27/2022 AUDIT-C Answer Date Recorded Q1: How often do you have a drink containing alc ohol? Monthly or less 09/26/2022 Q2: How many drinks containi ng alcohol do you have on a typical day when you are drinking? 1 or 2 09/26/2022 Q3: How often do you have si x or more drinks on one occasion? Never 09/26/2022 Overall Financial Resource Strain (CARDIA) Answe r Date Recorded How hard is it for you to pa y for the very basics like food, housing, medical care, and heating? Not hard at all 09/27/2022 Hunger Vital Sign Answer Date Recorded Within the past 12 months, y ou worried that your food would run out before you got the money to buy more. Never true 02/15/20 22 Within the past 12 months, t he food you bought just didn't last and you didn't have money to get more. Never true 02/14/2022 PRAPARE - Transportation Answer Date Re corded In the past 12 months, has l ack of transportation kept you from medical appointments or from getting medications? No 09/12 In the past 12 months, has l ack of transportation kept you from meetings, work, or from getting things needed for daily living? No 09/27/2022 Housing Stability Vital Sign Answer Raymundo e Recorded In the last 12 months, was t here a time when you were not able to pay the mortgage or rent on time? No 02/14/2022 Number of Places Lived in the Last Year Not on f ile 02/14/2022 In the last 12 months, was t here a time when you did not have a steady place to sleep or slept in a fpc (including now)? No 02/14/2022 Sex and Gender Information Value Date Recorded Sex Assigned at Not on file Legal Sex Male 11:56 AM PRODUCT DEVELOPER Gender Identity Not on file Sexual Orientation Not on file Last Filed Vital Signs Vital Sign Reading Time Taken Comments Blood Pressure 137/71 09/27/2022 4:00 PM PRODUCT DEVELOPER Pulse 96 09/27/2022 4:00 PM PRODUCT DEVELOPER Temperature 36.8 C (98.3 F) 09/27/2022 4:00 PM PRODUCT DEVELOPER Respiratory Rate 18 09/27/2022 4:00 PM PRODUCT DEVELOPER Oxygen Saturation 100% 09/27/2022 4:00 PM PRODUCT DEVELOPER Inhaled Oxygen Concentration - - Weight 84.8 kg (187 lb) 09/26/2023 11:07 AM PRODUCT DEVELOPER Height 182.9 cm (6') 09/26/2023 11:07 AM PRODUCT DEVELOPER Body Mass Index 25.36 09/26/2023 11:07 AM PRODUCT DEVELOPER Plan of Treatment Not on file Medical Devices Implanted Type Area Game Producer Device Identifier Shelf Expiration Date Model / Serial / Lot [employer] Simplex P Radiopaque Full Dose Cement Bone Sterile 6191-1-010 - [id number] Implanted:Qty: 2 on 02/14/2022 by Narciso Hernandez MD at [facility] 05/12/2024 6191-1-010 / / [id number] [employer] Ruth Ii 35mm Resurface Component Patellar [id number] - [id number] Implanted:Qty: 1 on 02/14/2022 by Narciso Hernandez MD at [facility] [employer] [id number] 11/04/2031 [id number] / / [id number] [employer] Ruth Ii Cement Knee Right 7 Baseplate Tibial Titanium [id number] - [id number] Implanted:Qty: 1 on 02/14/2022 by Narciso Hernandez MD at [facility] [employer] [id number] 10/22/2030 [id number] / / [id number] [employer] [id number] Ruth [employer] Legion Spc Cruciate Retain Knee Right 8 Component - [id number] Implanted:Qty: 1 on 02/14/2022 by Narciso Hernandez MD at [facility] [employer] [id number] 02/13/2030 [id number] / / [id number] [employer] Insert Tibial Knee Fixed Cr High Flex Legion 8mm Size 7 8 Polyethylene [id number] - [id number] Implanted:Qty: 1 on 02/14/2022 by Narciso Hernandez MD at [facility] [employer] 10/11/2024 [id number] / / [id number] [employer] Simplex P Radiopaque Full Dose Cement Bone Sterile 6191-1-010 - [id number] Implanted:Qty: 2 on 09/26/2022 by Narciso Hernandez MD at [facility] 03/12/2025 6191-1-010 / / [id number] [employer] Legion 13mm Cruciate Retaining High Flexion Knee 7-8 Insert [id number] - [id number] Implanted:Qty: 1 on 09/26/2022 by Narciso Hernandez MD at [facility] [employer] [id number] 06/05/2031 [id number] / / [id number] [employer] Ruth Ii Cement Left Knee 7 Baseplate Tibial Titanium Nonporous [id number] - [id number] Implanted:Qty: 1 on 09/26/2022 by Narciso Hernandez MD at [facility] [employer] [id number] 04/16/2032 [id number] / / [id number] [employer] Ruth Ii Legion Spc Cruciate Retain Knee Left 8 Component [id number] - [id number] Implanted:Qty: 1 on 09/26/2022 by Narciso Hernandez MD at [facility] [employer] [id number] 05/17/2032 [id number] / / [id number] [employer] Ruth Ii 35mm Resurface Component Patellar [id number] - [id number] Implanted:Qty: 1 on 09/26/2022 by Narciso Hernandez MD at [facility] [employer] [id number] 12/08/2031 [id number] / / [id number] Insurance [employer] OPEN ACCESS MEDICARE [employer] OPEN ACCESS Advance Directives For more information, please contact: [phone] * Full Code (Latest Code Status on File) Date Activated Date Inactivated Comments 09/26/2022 12:13 PM 09/27/2022 8:55 PM * Full Code Date Activated Date Inactivated Comments 02/14/2022 1:25 PM 02/16/2022 5:48 PM Care Teams Acoustic Engineer Relationship Specialty Start Date End Date Kleber Davis MD PCP - General Internal Medicine 12/18/21 Narciso Hernandez MD [id number] [facility] [address] [place] [id number] Consulting Physician Orthopedic Surgery 02/15/22
--- OUTSIDE RECORDS SUMMARY | 2025-01-02 11:50 | XMS_ITS | Data Portability ---
Author Organization [facility] HAMILTONAndra Valencia Address [address] [place] [address] Assessment Encounter Date Assessment Date Assessment LastModified by Organization Details LastModified Time 12/10/2023 12/10/2023 Low-fat diet low-salt diet compression socks obtain old records follow-up with me in 6 months continue Not available 01/14/2024 20:20:41 04/07/2024 04/07/2024 continue current therapy healthy lifestyle care instructions discussed depression screening reviewed will follow up with me in 6 months he just had a colonoscopy last year complicated by perforation [email or web address] Not available 04/10/2024 11:37:20 09/28/2024 09/28/2024 blood pressure is controlled continue to wear compression stockings blood work has been ordered healthy lifestyle care instructions follow up 6 months [email or web address] Not available 09/28/2024 13:52:56 Plan of Treatment Reminders Order Date Submit Date Provider Last Modified By Organization Details Last Modified Time Details Appointments ANY 15 2024 09:00A Rhianna Davis MD Not available Not available Not available Lab CMP, serum or plasma 2023 024 [facility], [address], [place], [address], 09/29/2024 06:20:12 CBC w/ auto diff 2023 024 [facility], [address], [place], [address], 09/29/2024 06:20:14 lipid panel, serum 2023 024 [facility], [address], [address], [place], [address], 09/29/2024 06:20:11 PSA, total, serum or plasma 2023 024 [facility], [address], [address], [place], [address], 04/08/2024 06:20:12 CBC w/ auto diff 2023 024 [facility], [address], [address], [place], [address], 04/08/2024 06:20:11 CMP, serum or plasma 2023 024 [facility], [address], [place], [address], 04/08/2024 06:20:10 lipid panel, serum 2023 024 [facility], [address], [address], [place], [address], 04/08/2024 06:20:09 Referral None recorded . Procedures None recorded . Surgeries None recorded . Imaging None recorded . Medication Orders None recorded . Patient TargetsNo targets recorded. Patient Instructions Encounter Date Encounter Id Patient Instructions Last Modified By Organization Details Last Modified Time 04/07/2024 [id number] A healthy lifestyle: care instructions [email or web address] Not available 04/07/2024 13:41:09 09/28/2024 [id number] A healthy lifestyle: care instructions [email or web address] Not available 09/28/2024 12:38:46 Reason for Referral None Reported. Results Created Date Observation Date Name Description Value Unit Range Abnormal Flag Note LastModifiedBy Organization Detail LastModifiedTime 04/07/20 24 04/08/2024 LIPID PANEL cholesterol, total 189 mg/dL 100-19 9 Not Available [facility] ([facility]) [address] [facility], [place], [address], 04/08/2024 06:20:09 04/07/20 24 04/08/2024 LIPID PANEL triglyceride s 179 mg/dL 0-149 above high normal Not Available [facility] ([facility]) [address] [place], [address], 04/08/2024 06:20:09 04/07/20 24 04/08/2024 LIPID PANEL HDL cholesterol 46 mg/dL >39 Not Available [facility] ([facility]) [address] [place], [address], 04/08/2024 06:20:09 04/07/20 24 04/08/2024 LIPID PANEL VLDL cholesterol winter 31 mg/dL 5-40 Not Available [facility] ([facility]) [address] [place], [address], 04/08/2024 06:20:09 04/07/20 24 04/08/2024 LIPID PANEL LDL chol calc ([facility]) 112 mg/dL 0-99 above high normal Not Available [facility] ([facility]) [address] [place], [address], 04/08/2024 06:20:09 04/07/20 24 04/08/2024 COMP. METAB OLIC PANEL (14) glucose 82 mg/dL 70-99 Not Available [facility] ([facility]) [address] [place], [address], 04/08/2024 06:20:10 04/07/20 24 04/08/2024 COMP. METAB OLIC PANEL (14) BUN 29 mg/dL 8-27 above high normal Not Available [facility] ([facility]) [address] [place], [address], 04/08/2024 06:20:10 04/07/20 24 04/08/2024 COMP. METAB OLIC PANEL (14) creatinine 1.52 mg/dL 0.76-1 .27 above high normal Not Available [facility] ([facility]) [address] [facility], [place], [address], 04/08/2024 06:20:10 04/07/20 24 04/08/2024 COMP. METAB OLIC PANEL (14) eGFR 50 mL/mi n/1.7 3 >59 below low normal Not Available [facility] ([facility]) [address] [place], [address], 04/08/2024 06:20:10 04/07/20 24 04/08/2024 COMP. METAB OLIC PANEL (14) BUN/creatini ne ratio 19 -24 Not Available [facility] ([facility]) [address] [facility], [place], [address], 04/08/2024 06:20:10 04/07/20 24 04/08/2024 COMP. METAB OLIC PANEL (14) sodium 139 mmol/ L 134-14 4 Not Available [facility] ([facility]) [address] [place], [address], 04/08/2024 06:20:10 04/07/20 24 04/08/2024 COMP. METAB OLIC PANEL (14) potassium 4.0 mmol/ L 3.5-5. 2 Not Available [facility] ([facility]) [address] [place], [address], 04/08/2024 06:20:10 04/07/20 24 04/08/2024 COMP. METAB OLIC PANEL (14) chloride 98 mmol/ L 96-106 Not Available [facility] ([facility]) [address] [place], [address], 04/08/2024 06:20:10 04/07/20 24 04/08/2024 COMP. METAB OLIC PANEL (14) carbon dioxide, total 26 mmol/ L 20-29 Not Available [facility] ([facility]) [address] [place], [address], 04/08/2024 06:20:10 04/07/20 24 04/08/2024 COMP. METAB OLIC PANEL (14) calcium 10.2 mg/dL 8.6-10 .2 Not Available [facility] ([facility]) [address] [place], [address], 04/08/2024 06:20:10 04/07/20 24 04/08/2024 COMP. METAB OLIC PANEL (14) protein, total 7.1 g/dL 6.0-8. 5 Not Available [facility] ([facility]) [address] [place], [address], 04/08/2024 06:20:10 04/07/20 24 04/08/2024 COMP. METAB OLIC PANEL (14) albumin 4.5 g/dL 3.9-4. 9 Not Available [facility] ([facility]) [address] [place], [address], 04/08/2024 06:20:10 04/07/20 24 04/08/2024 COMP. METAB OLIC PANEL (14) globulin, total 2.6 g/dL 1.5-4. 5 Not Available [facility] ([facility]) [address] [place], [address], 04/08/2024 06:20:10 04/07/20 24 04/08/2024 COMP. METAB OLIC PANEL (14) bilirubin, total 0.4 mg/dL 0.0-1. 2 Not Available [facility] ([facility]) [address] [place], [address], 04/08/2024 06:20:10 04/07/20 24 04/08/2024 COMP. METAB OLIC PANEL (14) alkaline phosphatase 98 IU/L 44-121 Not Available [facility] ([facility]) [address] [place], [address], 04/08/2024 06:20:10 04/07/20 24 04/08/2024 COMP. METAB OLIC PANEL (14) AST (SGOT) 29 IU/L 0-40 Not Available [facility] ([facility]) [address] [place], [address], 04/08/2024 06:20:10 04/07/20 24 04/08/2024 COMP. METAB OLIC PANEL (14) ALT (SGPT) 32 IU/L 0-44 Not Available [facility] ([facility]) [address] [place], [address], 04/08/2024 06:20:10 04/07/20 24 04/07/2024 CBC WITH DIFFE RENTI AL/PL ATELE T WBC 8.5 x10e3 /uL 3.4-10 .8 Not Available [facility] ([facility]) [address] [place], [address], 04/08/2024 06:20:11 04/07/20 24 04/07/2024 CBC WITH DIFFE RENTI AL/PL ATELE T RBC 4.50 x10e6 /uL 4.14-5 .80 Not Available [facility] ([facility]) [address] [place], [address], 04/08/2024 06:20:11 04/07/20 24 04/07/2024 CBC WITH DIFFE RENTI AL/PL ATELE T hemoglobin 13.9 g/dL 13.0-1 7.7 Not Available [facility] ([facility]) [address] [place], [address], 04/08/2024 06:20:11 04/07/20 24 04/07/2024 CBC WITH DIFFE RENTI AL/PL ATELE T hematocrit 41.2 % 37.5-5 1.0 Not Available [facility] ([facility]) [address] [place], [address], 04/08/2024 06:20:11 04/07/20 24 04/07/2024 CBC WITH DIFFE RENTI AL/PL ATELE T MCV 92 fL 79-97 Not Available [facility] ([facility]) [address] [facility], [place], [address], 04/08/2024 06:20:11 04/07/20 24 04/07/2024 CBC WITH DIFFE RENTI AL/PL ATELE T MCH 30.9 pg 26.6-3 3.0 Not Available [facility] ([facility]) [address] [facility], [place], [address], 04/08/2024 06:20:11 04/07/20 24 04/07/2024 CBC WITH DIFFE RENTI AL/PL ATELE T MCHC 33.7 g/dL 31.5-3 5.7 Not Available [facility] ([facility]) [address] [facility], [place], [address], 04/08/2024 06:20:11 04/07/20 24 04/07/2024 CBC WITH DIFFE RENTI AL/PL ATELE T RDW 13.1 % 11.6-1 5.4 Not Available [facility] ([facility]) [address] [place], [address], 04/08/2024 06:20:11 04/07/20 24 04/07/2024 CBC WITH DIFFE RENTI AL/PL ATELE T platelets 224 x10e3 /uL 150-45 0 Not Available [facility] ([facility]) [address] [place], [address], 04/08/2024 06:20:11 04/07/20 24 04/07/2024 CBC WITH DIFFE RENTI AL/PL ATELE T neutrophils 56 % notest ab. Not Available [facility] ([facility]) [address] [place], [address], 04/08/2024 06:20:11 04/07/20 24 04/07/2024 CBC WITH DIFFE RENTI AL/PL ATELE T lymphs 29 % notest ab. Not Available [facility] ([facility]) [address] [facility], [place], [address], 04/08/2024 06:20:11 04/07/20 24 04/07/2024 CBC WITH DIFFE RENTI AL/PL ATELE T monocytes 11 % notest ab. Not Available [facility] ([facility]) [address] [facility], [place], [address], 04/08/2024 06:20:11 04/07/20 24 04/07/2024 CBC WITH DIFFE RENTI AL/PL ATELE T eos 3 % notest ab. Not Available [facility] ([facility]) [address], [place], [address], 04/08/2024 06:20:11 04/07/20 24 04/07/2024 CBC WITH DIFFE RENTI AL/PL ATELE T basos 1 % notest ab. Not Available [facility] ([facility]) [address] [facility], [place], [address], 04/08/2024 06:20:11 04/07/20 24 04/07/2024 CBC WITH DIFFE RENTI AL/PL ATELE T neutrophils (absolute) 4.8 x10e3 /uL 1.4-7. 0 Not Available [facility] ([facility]) [address], [place], [address], 04/08/2024 06:20:11 04/07/20 24 04/07/2024 CBC WITH DIFFE RENTI AL/PL ATELE T lymphs (absolute) 2.4 x10e3 /uL 0.7-3. 1 Not Available [facility] ([facility]) [address], [place], [address], 04/08/2024 06:20:11 04/07/20 24 04/07/2024 CBC WITH DIFFE RENTI AL/PL ATELE T monocytes(ab solute) 0.9 x10e3 /uL 0.1-0. 9 Not Available [facility] ([facility]) [address] [place], [address], 04/08/2024 06:20:11 04/07/20 24 04/07/2024 CBC WITH DIFFE RENTI AL/PL ATELE T eos (absolute) 0.3 x10e3 /uL 0.0-0. 4 Not Available [facility] ([facility]) [address] [place], [address], 04/08/2024 06:20:11 04/07/20 24 04/07/2024 CBC WITH DIFFE RENTI AL/PL ATELE T baso (absolute) 0.0 x10e3 /uL 0.0-0. 2 Not Available [facility] ([facility]) [address] [place], [address], 04/08/2024 06:20:11 04/07/20 24 04/07/2024 CBC WITH DIFFE RENTI AL/PL ATELE T immature granulocytes 0 % notest ab. Not Available [facility] ([facility]) [address] [place], [address], 04/08/2024 06:20:11 04/07/20 24 04/07/2024 CBC WITH DIFFE RENTI AL/PL ATELE T immature grans (abs) 0.0 x10e3 /uL 0.0-0. 1 Not Available [facility] ([facility]) [address] [place], [address], 04/08/2024 06:20:11 04/07/20 24 04/08/2024 PROST ATE-S PECIF IC AG prostate specific Ag 1.2 NG/mL 0.0-4. 0 Eric ECLIA metho dolog y. Accor ding to the Ameri can [employer] iatio n, Serum PSA shoul d decre ase and remai n at undet ectab le level s after radic al prost atect merlin. The AUA defin es bioch emica l recur rence as an initi al PSA value 0.2 ng/mL or great er follo wed by a subse quent confi rmato ry PSA value 0.2 ng/mL or great er. Value s obtai johnson with diffe rent assay metho ds or kits canno t be used inter mendoza eably . Resul ts canno t be inter prete d as absol [place] evide nce of the prese nce or absen ce of [facility] se. Not Available [facility] ([facility]) [address] [place], [address], 04/08/2024 06:20:11 09/28/20 24 09/29/2024 LIPID PANEL cholesterol, total 205 mg/dL 100-19 9 above high normal Not Available [facility] ([facility]) [address] [place], [address], 09/29/2024 06:20:11 09/28/20 24 09/29/2024 LIPID PANEL triglyceride s 122 mg/dL 0-149 Not Available [facility] ([facility]) [address] [place], [address], 09/29/2024 06:20:11 09/28/20 24 09/29/2024 LIPID PANEL HDL cholesterol 55 mg/dL >39 Not Available [facility] ([facility]) [address] [place], [address], 09/29/2024 06:20:11 09/28/20 24 09/29/2024 LIPID PANEL VLDL cholesterol winter 22 mg/dL 5-40 Not Available [facility] ([facility]) [address] [place], [address], 09/29/2024 06:20:11 09/28/20 24 09/29/2024 LIPID PANEL LDL chol calc ([facility]) 128 mg/dL 0-99 above high normal Not Available [facility] ([facility]) [address] [place], [address], 09/29/2024 06:20:11 09/28/20 24 09/28/2024 COMP. METAB OLIC PANEL (14) sodium 140 mmol/ L 134-14 4 Not Available [facility] ([facility]) [address] [place], [address], 09/29/2024 06:20:12 09/28/20 24 09/28/2024 COMP. METAB OLIC PANEL (14) chloride 100 mmol/ L 96-106 Not Available [facility] ([facility]) [address] [facility] [place], [address], 09/29/2024 06:20:12 09/28/20 24 09/29/2024 COMP. METAB OLIC PANEL (14) glucose 109 mg/dL 70-99 above high normal Not Available [facility] ([facility]) [address] [facility] [place], [address], 09/29/2024 06:20:12 09/28/20 24 09/29/2024 COMP. METAB OLIC PANEL (14) BUN 18 mg/dL 8-27 Not Available [facility] ([facility]) [address] [place], [address], 09/29/2024 06:20:12 09/28/20 24 09/29/2024 COMP. METAB OLIC PANEL (14) creatinine 1.20 mg/dL 0.76-1 .27 Not Available [facility] ([facility]) [address] [place], [address], 09/29/2024 06:20:12 09/28/20 24 09/29/2024 COMP. METAB OLIC PANEL (14) eGFR 66 mL/mi n/1.7 3 >59 Not Available [facility] ([facility]) [address] [place], [address], 09/29/2024 06:20:12 09/28/20 24 09/29/2024 COMP. METAB OLIC PANEL (14) BUN/creatini ne ratio 15 10-24 Not Available [facility] ([facility]) [address] [facility], [place], [address], 09/29/2024 06:20:12 09/28/20 24 09/29/2024 COMP. METAB OLIC PANEL (14) potassium 4.1 mmol/ L 3.5-5. 2 Not Available [facility] ([facility]) [address] [facility], [place], [address], 09/29/2024 06:20:12 09/28/20 24 09/29/2024 COMP. METAB OLIC PANEL (14) carbon dioxide, total 27 mmol/ L 20-29 Not Available [facility] ([facility]) [address] [facility], [place], [address], 09/29/2024 06:20:12 09/28/20 24 09/29/2024 COMP. METAB OLIC PANEL (14) calcium 10.0 mg/dL 8.6-10 .2 Not Available [facility] ([facility]) [address] [facility], [place], [address], 09/29/2024 06:20:12 09/28/20 24 09/29/2024 COMP. METAB OLIC PANEL (14) protein, total 7.2 g/dL 6.0-8. 5 Not Available [facility] ([facility]) [address] [facility], [place], [address], 09/29/2024 06:20:12 09/28/20 24 09/29/2024 COMP. METAB OLIC PANEL (14) albumin 4.6 g/dL 3.9-4. 9 Not Available [facility] ([facility]) [address] [facility], [place], [address], 09/29/2024 06:20:12 09/28/20 24 09/29/2024 COMP. METAB OLIC PANEL (14) globulin, total 2.6 g/dL 1.5-4. 5 Not Available [facility] ([facility]) [address] [facility], [place], [address], 09/29/2024 06:20:12 09/28/20 24 09/29/2024 COMP. METAB OLIC PANEL (14) bilirubin, total 0.6 mg/dL 0.0-1. 2 Not Available [facility] ([facility]) [address] [facility], [place], [address], 09/29/2024 06:20:12 09/28/20 24 09/29/2024 COMP. METAB OLIC PANEL (14) alkaline phosphatase 97 IU/L 44-121 Not Available [facility] ([facility]) [address] [facility], [place], [address], 09/29/2024 06:20:12 09/28/20 24 09/29/2024 COMP. METAB OLIC PANEL (14) AST (SGOT) 30 IU/L 0-40 Not Available [facility] ([facility]) [address] [facility], [place], [address], 09/29/2024 06:20:12 09/28/20 24 09/29/2024 COMP. METAB OLIC PANEL (14) ALT (SGPT) 30 IU/L 0-44 Not Available [facility] ([facility]) [address] [facility], [place], [address], 09/29/2024 06:20:12 09/28/20 24 09/28/2024 CBC WITH DIFFE RENTI AL/PL ATELE T WBC 6.5 x10e3 /uL 3.4-10 .8 Not Available [facility] ([facility]) [address] [facility], [place], [address], 09/29/2024 06:20:13 09/28/20 24 09/28/2024 CBC WITH DIFFE RENTI AL/PL ATELE T RBC 4.79 x10e6 /uL 4.14-5 .80 Not Available [facility] ([facility]) [address] [facility], [place], [address], 09/29/2024 06:20:13 09/28/20 24 09/28/2024 CBC WITH DIFFE RENTI AL/PL ATELE T hemoglobin 14.9 g/dL 13.0-1 7.7 Not Available [facility] ([facility]) [address] [facility], [place], [address], 09/29/2024 06:20:13 09/28/20 24 09/28/2024 CBC WITH DIFFE RENTI AL/PL ATELE T hematocrit 45.1 % 37.5-5 1.0 Not Available [facility] ([facility]) [address] [facility], [place], [address], 09/29/2024 06:20:13 09/28/20 24 09/28/2024 CBC WITH DIFFE RENTI AL/PL ATELE T MCV 94 fL 79-97 Not Available [facility] ([facility]) [address] [place], [address], 09/29/2024 06:20:13 09/28/20 24 09/28/2024 CBC WITH DIFFE RENTI AL/PL ATELE T MCH 31.1 pg 26.6-3 3.0 Not Available [facility] ([facility]) [address] [place], [address], 09/29/2024 06:20:13 09/28/20 24 09/28/2024 CBC WITH DIFFE RENTI AL/PL ATELE T MCHC 33.0 g/dL 31.5-3 5.7 Not Available [facility] ([facility]) [address] [place], [address], 09/29/2024 06:20:13 09/28/20 24 09/28/2024 CBC WITH DIFFE RENTI AL/PL ATELE T RDW 12.2 % 11.6-1 5.4 Not Available [facility] ([facility]) [address] [facility] [facility], [place], [address], 09/29/2024 06:20:13 09/28/20 24 09/28/2024 CBC WITH DIFFE RENTI AL/PL ATELE T platelets 239 x10e3 /uL 150-45 0 Not Available [facility] ([facility]) [address] [facility], [place], [address], 09/29/2024 06:20:13 09/28/20 24 09/28/2024 CBC WITH DIFFE RENTI AL/PL ATELE T neutrophils 52 % notest ab. Not Available [facility] ([facility]) [address] [facility], [place], [address], 09/29/2024 06:20:13 09/28/20 24 09/28/2024 CBC WITH DIFFE RENTI AL/PL ATELE T lymphs 33 % notest ab. Not Available [facility] ([facility]) [address] [facility], [place], [address], 09/29/2024 06:20:13 09/28/20 24 09/28/2024 CBC WITH DIFFE RENTI AL/PL ATELE T monocytes 11 % notest ab. Not Available [facility] ([facility]) [address] [facility], [place], [address], 09/29/2024 06:20:13 09/28/20 24 09/28/2024 CBC WITH DIFFE RENTI AL/PL ATELE T eos 3 % notest ab. Not Available [facility] ([facility]) [address] [facility], [place], [address], 09/29/2024 06:20:13 09/28/20 24 09/28/2024 CBC WITH DIFFE RENTI AL/PL ATELE T basos 1 % notest ab. Not Available [facility] ([facility]) [address] [facility], [place], [address], 09/29/2024 06:20:13 09/28/20 24 09/28/2024 CBC WITH DIFFE RENTI AL/PL ATELE T neutrophils (absolute) 3.4 x10e3 /uL 1.4-7. 0 Not Available [facility] ([facility]) [address] [facility], [place], [address], 09/29/2024 06:20:13 09/28/20 24 09/28/2024 CBC WITH DIFFE RENTI AL/PL ATELE T lymphs (absolute) 2.1 x10e3 /uL 0.7-3. 1 Not Available [facility] ([facility]) [address] [facility], [place], [address], 09/29/2024 06:20:13 09/28/20 24 09/28/2024 CBC WITH DIFFE RENTI AL/PL ATELE T monocytes(ab solute) 0.7 x10e3 /uL 0.1-0. 9 Not Available [facility] ([facility]) [address] [facility], [place], [address], 09/29/2024 06:20:13 09/28/20 24 09/28/2024 CBC WITH DIFFE RENTI AL/PL ATELE T eos (absolute) 0.2 x10e3 /uL 0.0-0. 4 Not Available [facility] ([facility]) [address] [place], [address], 09/29/2024 06:20:13 09/28/20 24 09/28/2024 CBC WITH DIFFE RENTI AL/PL ATELE T baso (absolute) 0.0 x10e3 /uL 0.0-0. 2 Not Available [facility] ([facility]) [address] [place], [address], 09/29/2024 06:20:13 09/28/20 24 09/28/2024 CBC WITH DIFFE RENTI AL/PL ATELE T immature granulocytes 0 % notest ab. Not Available [facility] ([facility]) [address] [facility], [place], [address], 09/29/2024 06:20:13 09/28/20 24 09/28/2024 CBC WITH DIFFE RENTI AL/PL ATELE T immature grans (abs) 0.0 x10e3 /uL 0.0-0. 1 Not Available [facility] ([facility]) [address] [facility], [place], [address], 09/29/2024 06:20:13 09/28/20 24 05/14/2023 colon oscop y scree ela (PROC ) No observ ation record ed. [email or web address] Not Available 2023 12:56:49 10/27/1905/14/2023 colon oscop y proce dure (PROC ) No observ ation record ed. [email or web address] Not Available 2024 12:39:41 Result Notes None recorded. Problems Name Problem SNOMED Code Status Onset Date Resolution Date Notes Provider Name and Address Organization Details Recorded Time Benign essential hypertension 5288558 Active 2023 NOLA Guard[place], [place] - [facility] 4 11:11:11 Depression screening Active 2023 NOLA [place], [place] - [facility] 4 11:11:11 Overweight 947813071 Active 2023 Barry Merida MA null, [place] - [facility] 4 11:11:12 Hyperlipidemia 17006606 Active 2023 Barry Merida [place], [place] [facility] 4 11:11:12 Varicose veins of lower extremity 91025277 Active 2023 Barry Merida MA null, [place] - [facility] 4 11:11:13 Problem Notes None recorded. Procedures Surgical History None recorded. Imaging Results Imaging Date Name Status LastModified by [facility] Details LastModified Time 05/14/2023 colonoscopy screening (PROC) completed [email or web address] Information not available 09/28/2024 12:56:49 05/14/2023 colonoscopy procedure (PROC) completed [email or web address] Information not available 10/27/2024 12:39:41 Procedure Notes None recorded. Medical Equipment None Reported. Allergies No known drug allergies Medications Name Sig Start Date Stop Date Status Note LastModified by Organization Details LastModified Time amoxicillin 500 mg capsule TAKE 4 CAPSULES BY MOUTH 1 HOUR BEFORE DENTAL PROCEDURE 12/10 completed Not Available Not Available Not Available atorvastati n 40 mg tablet TAKE 1 TABLET BY MOUTH EVERY DAY 2023 active Not Available Not Available Not Avai lable lisinopril 20 mg tablet TAKE 1 TABLET BY MOUTH EVERYDAY AT BEDTIME 12/10 completed Not Available Not Available Not Available metronidazo le 500 mg tablet TAKE 1 TABLET BY MOUTH EVERY 8 HOURS 12/10 completed Not Available Not Available Not Available ciprofloxac in 500 mg tablet TAKE 1 TABLET BY MOUTH EVERY 12 HOURS FOR 7 DAYS 12/10 completed Not Available Not Available Not Available peg-electro lyte solution 420 gram oral solution DRINK 1/2 AT 5PM ON 05-13 AND OTHER 1/2 AT 5AM ON 05-14 completed Not Available Not Available Not Available metoclopram francisco 5 mg tablet TAKE 1 TABLET BY MOUTH BEFORE MEALS AND AT BEDTIME 12/10 completed Not Available Not Available Not Available pantoprazol e 40 mg tablet,hugh yed release TAKE 1 TABLET BY MOUTH EVERY 12 HOURS 04/07 completed Not Available Not Available Not Available lisinopril 20 mg-hydrochl orothiazide 25 mg tablet TAKE 1 TABLET BY MOUTH EVERY DAY 2023 active Not Available Not Available Not Avai lable bisacodyl 5 mg tablet,hugh yed release TAKE 6 TABLETS BY MOUTH AT 8AM ON 05-13-2312/10 completed Not Available Not Available Not Available amoxicillin 875 mg-potassiu m clavulanate 125 mg tablet TAKE 1 TABLET BY MOUTH EVERY 12 HOURS 12/10 completed Not Available Not Available Not Available Vitals Date Recorded Body weight Oxygen saturation Oxygen saturation in Arterial blood by Pulse oximetry Heart rate Systolic blood pressure Diastolic blood pressure Provider Name and Address Organization Details Last Updated DateTime 4 86386.3 3 g 96 % 96 % 71 /min 98 mm[Hg] 60 mm[Hg] Noelle Banuelos MA [facility] 4 10:34:03 Date Recorded Body height Body mass index (BMI) Body weight Oxygen saturation Oxygen saturation in Arterial blood by Pulse oximetry Body temperature Heart rate Systolic blood pressure Diastolic blood pressure Provider Name and Address Organization Details Last Updated DateTime 4 182.88 cm 26.1 kg/m2 81840.4 5 g 95 % 95 % 98 [degF] 67 /min 100 mm[Hg] 60 mm[Hg] Dayanara Clarke MA [facility] 4 10:31:55 Date Recorded Body height Body mass index (BMI) Body weight Heart rate Oxygen saturation Oxygen saturation in Arterial blood by Pulse oximetry Systolic blood pressure Diastolic blood pressure Provider Name and Address Organization Details Last Updated DateTime 4 182.88 cm 26.3 kg/m2 00417.5 6 g 68 /min 99 % 99 % 118 mm[Hg] 62 mm[Hg] Meredith Graham MA [facility] 4 09:37:13 Social History Question Answer Notes LastModified by Organizat ion Details LastModified Time Tobacco Smoking Status Never Smoker Noelle Banuelos MA null, [facility] 12/10/2023 10:30:06 Do You Have An Advance Directive? Yes Information n ot available 12/10/2023 What Is Your Level Of Alcohol Consumption? Occasional Information not available 12/10/2023 Are You Blind Or Do You Have Difficulty Seeing? No Information n ot available 12/10/2023 What Is Your Level Of Caffeine Consumption? Moderate Information not available 12/10/2023 In The 14 Days Before Symptom Onset, Have You Had Close Contact With A Laboratory-confirm ed COVID-19 While That Case Was Ill? No Information n ot available 12/10/2023 In The 14 Days Before Symptom Onset, Have You Had Close Contact With A Person Who Is Under Investigation For COVID-19 While That Person Was Ill? No Information not available 12/10/2023 Have You Been To An Area Known To Be High Risk For COVID-19? No Information not available 12/10/2023 Are You Currently Employed? No Information not available 12/10/2023 Are You Deaf Or Do You Have Serious Difficulty Hearing? No Information not available 12/10/2023 What Type Of Diet Are You Following? REGULAR Information n ot available 12/10/2023 Are There Any Guns Present In Your Home? No Information not available 12/10/2023 What Was The Date Of Your Most Recent Tobacco Screening? 09/28/2024 Information not available 09/28/2024 What Is Your Relationship Status? Information not available 12/10/2023 Do You Use Your Seat Belt Or Car Seat Routinely? Yes Information not available 12/10/2023 Do You Have Smoke And Carbon Monoxide Detectors In Your Home? Yes Information not available 12/10/2023 Do You Feel Stressed (tense, Restless, Nervous, Or Anxious, Or Unable To Sleep At Night)? [id number] Information not available 12/10/2023 Do You Use Any Illicit Or Recreational Drugs? No Information not available 12/10/2023 Do You Use Sunscreen Routinely? Yes Information not available 12/10/2023 Has Tobacco Cessation Counseling Been Provided? Yes Information not available 12/10/2023 On What Date Was Tobacco Cessation Counseling Provided? 09/28/2024 Information not available 09/28/2024 Do You Or Have You Ever Used Any Other Forms Of Tobacco Or Nicotine? No Information not available 12/10/2023 Sex: Male Functional Status Question Answer Note LastModified by Organization D etails LastModified Time Are you able to care for yourself? Yes Information n ot available 12/10/2023 What is your exercise level? None Information not available 12/10/2023 Mental Status None recorded. Family History Nothing Reported. Medical History Condition Response High Blood Pressure Y Immunizations Vaccine Type Date Status Note Provider Nam e and Address Organization Details Recorded Time Influenza, split virus, quadrivalent, preservative 7 completed Barry Merida [place] null, [place] - [facility] 09/28/2024 09:51:46 Influenza, MDCK, quadrivalent, PF 6 completed Barry Merida [place] [facility] 09/28/2024 09:51:46 Influenza, MDCK, quadrivalent, PF 7 completed Barry Mer[place] [facility] 09/28/2024 09:51:46 Influenza, high-dose, quadrivalent, PF 2 completed Barry Merida [place] [facility] 09/28/2024 09:51:46 COVID-19, mRNA, LNP-S, PF, 30 mcg/0.3 mL dose 1 completed N[place], [place] [facility] 09/28/2024 09:51:46 COVID-19, mRNA, LNP-S, PF, 30 mcg/0.3 mL dose 1 completed Barry Merida [place] [facility] 09/28/2024 09:51:46 COVID-19, mRNA, LNP-S, PF, 30 mcg/0.3 mL dose 1 completed Barry Merida [place] [facility] 09/28/2024 09:51:46 COVID-19, mRNA, LNP-S, bivalent, PF, 30 mcg/0.3 mL dose 2 completed Barry Merida [place] [facility] 09/28/2024 09:51:46 COVID-19, mRNA, LNP-S, PF, tiffany-sucrose, 30 mcg/0.3 mL 4 completed Barry Mer[place] [facility] 09/28/2024 09:51:46 tetanus toxoid, unspecified formulation 9 completed Barry Mer[place] [facility] 09/28/2024 09:51:46 influenza, unspecified formulation 8 completed Barry Mer[place] [facility] 09/28/2024 09:51:46 Tdap 7 completed [place] [facility] 09/28/2024 09:51:46 Influenza, split virus, trivalent, preservative 5 completed Barry Merida [place] [facility] 09/28/2024 09:51:46 Influenza, split virus, quadrivalent, PF 4 completed [place] [facility] 09/28/2024 09:51:46 Influenza, split virus, quadrivalent, PF 0 completed [place] [facility] 09/28/2024 09:51:46 Influenza, split virus, quadrivalent, PF 9 completed [place] [facility] 09/28/2024 09:51:46 Influenza, split virus, quadrivalent, PF 8 completed [place] [facility] 09/28/2024 09:51:46 Influenza, split virus, quadrivalent, PF 1 [place] [facility] 09/28/2024 09:51:46 Pneumococcal conjugate PCV20, polysaccharide [id number] conjugate, adjuvant, PF 4 completed Kleber Davis MD Attn: Accounting,[address] [place], [address], [facility] 04/10/2024 11:36:45 Past Encounters Encounter ID Performer Location Encounter Start Date Encounter Closed Date Diagnosis/Indication Diagnosis SNOMED-CT Code Diagnosis ICD10 Code Diagnosis Note [id number] Kleber Davis MD [facility] (Adult Med) [address] [place] [address] [id number] 12/10/2023 09:57:03 12/10/2023 11:10:57 Essential hypertension 57767615 I10 Hyperlipidemia 59826393 E78.5 Varicose v eins of lower extremity 39896831 I83.891 [id number] Kleber Davis MD [facility] (Adult Med) [address] [place] [address] [id number] 04/07/2024 10:20:20 04/07/2024 11:14:57 Depression screening 280725641 Z13.31 Overweight 986915146 E66 .3 Benign ess ential hypertension 2022475 I10 Hyperlipidemia 67622081 E78.5 Varicose v eins of lower extremity 79534444 I83.893 Screening for malignant neoplasm of prostate 745144623 Z12.5 Administra tion of pneumococcal vaccine 53861567 Z23 [id number] Kleber Davis MD [facility] (Adult Med) [address] [place] [address] [id number] 09/28/2024 09:16:24 09/28/2024 09:53:39 Body mass index 25-29 - overweight 090585323 Z68.26 Overweight 639783142 E66 .3 Benign ess ential hypertension 4135795 I10 Hyperlipidemia 60917495 E78.5 Health Concerns Section Related Observation LastModified by Organization Detai ls LastModified Time None Recorded Concern Status LastModified by Organization Details LastModified Time None Recorded Advance Directives Directive Y: Payers Encounter Date Sequence Insurance Name Policy Number Policy [id number] Covered Member ID Zavaleta Member ID Guarantor Name 12/10/2023 1 [employer] Robin Pickering [id number] Robin Pickering 04/07/2024 1 [employer] Robin Pickering [id number] Robin Pickering 09/28/2024 1 [employer] Robin Pickering [id number] Robin Raheel Notes Date Note Type Note Provider Name and Address Organization Details Recorded Time 4 text/htm l Hypertension no headache no dizzinessGERD doing follow pantoprazoleVaricosities legs he uses compression socks we canHad a perforated colon after colonoscopy recovering nicely Kleber Davis MD Attn: Accounting,[address] [facility], [place], [address], [place] [facility] 01/14/2024 20:21:36 4 text/htm l Hypertension no headache no dizzinessGERD doing follow pantoprazoleVaricosities legs he uses compression socks we can Kleber Davis MD Attn: Accounting,[address] [facility], [place], [address], [place] [facility] 04/10/2024 11:37:37 4 text/htm l Hypertension no headache or dizziness. Hyperlipidemia does try to follow a low-fat diet. Peripheral venous insufficiency he has been using the compression stockings with limited success Kleber Davis MD Attn: Accounting,[address] [facility], [place], [address], [facility] 09/28/2024 13:53:15
--- OUTSIDE RECORDS SUMMARY | 2025-01-02 11:50 | XMS_ITS | Data Portability ---
Author Organization [place] [facility], Main Office Address [address] [place] [address] Assessment Encounter Date Assessment Date Assessment LastModified by Organization Details LastModified Time 01/13/2023 01/13/2023 Compression sock s Blood work Continue atorvastatin lisinopril hydrochlorothiazide Follow-up 6 months [email or web address] Not available 01/13/2023 21:55:39 07/21/2023 07/21/2023 He has made good recovery from his bowel perforation Will continue with current therapy I will see him back in 4 months Hospital records reviewed Not available 07/26/2023 12:25:38 Plan of Treatment Reminders Order Date Submit Date Provider Last Modified By Organization Details Last Modified Time Details Appointments None recorded. Lab CMP, serum or plasma 2022 023 [facility] (Lab), [address] [place], [address], 3 13:05:43 lipid panel w/ direct LDL, serum [address] (Lab), [address] [place], [address], 4 14:40:43 CBC w/ auto diff 2022 023 [facility] (Lab), [address] [place], [address], 3 13:05:43 PSA, serum or plasma 2022 023 [email or web address] [facility] (Lab), [address] [place], [address], 4 14:40:42 CMP, serum or plasma [address] (Lab), [address] [place], [address], 4 14:40:42 lipid panel, serum [address] (Lab), [address] [place], [address], 4 14:40:42 CBC w/ auto diff [address] (Lab), [address] [place], [address], 4 14:40:42 Referral None recorded. Procedures colonoscopy screening (PROC) 2022 023 HOMER Schumacher MD, [address] [facility], [address], [place], [address], 3 16:30:15 Surgeries None recorded. Imaging None recorded. Medication Orders None recorded. Patient TargetsNo targets recorded. Patient InstructionsNo instructions recorded. Reason for Referral None Reported. Results Created Date Observation Date Name Description Value Unit Range Abnormal Flag Note LastModifiedBy Organization Detail LastModifiedTime 09/16/20 22 09/12/2022 vu luong am No observ ation record ed. [id number] Not Available 12/11/2022 06:08:16 05/16/20 23 05/16/2023 CT, abdom en + pelvi s, w/ contr ast No observ ation record ed. [address] [address], [place], [address], 07/24/2023 13:56:05 05/17/20 23 05/17/2023 imagi ng/di agnos tic resul t No observ ation record ed. [address], [place], [address], 07/24/2023 13:56:40 05/20/20 23 05/20/2023 XR, kidne y + urete r + bladd er No observ ation record ed. [address], [place], [address], 07/24/2023 13:56:06 05/22/20 23 05/22/2023 CT, abdom en + pelvi s, w/ contr ast No observ ation record ed. [address] [address], [place], [address], 07/24/2023 13:56:06 05/22/20 23 05/22/2023 imagi ng/di agnos tic resul t No observ ation record ed. [address] [address], [place], [address], 07/24/2023 13:56:54 Result Notes None recorded. Problems Name Problem SNOMED Code Status Onset Date Resolution Date Notes Provider Name and Address Organization Details Recorded Time Benign essential hypertension 7297528 Active Not Available [facility] 3 06:01:31 Gastroesophag eal reflux disease 640615981 Active Not Available [facility] 3 06:01:31 Screening for malignant neoplasm of colon Active 2021 Not Available [facility] 3 06:01:31 Dyslipidemia 851767142 Active 2016 Not Available [facility] 3 06:01:31 Varicose veins of lower extremity 35884713 Active Not Available [facility] 3 06:01:31 Problem Notes None recorded. Procedures Surgical History Date Name Laterality Status Provider Name and Address Organization Details Recorded Time 02/15/20 22 Knee Replacement completed WILMER Guadalupe Alan [employer] [facility] 01/13/2023 10:40:19 Kidney Stones completed Not Available [facility] 12/11/2022 05:56:43 Knee Replacement completed WILMER Guadalupe LEILANI [employer] [facility] 01/13/2023 10:40:05 Imaging Results Imaging Date Name Status LastModified by Organization Details LastModified Time 09/12/2022 electrocardiogram completed MIGRATION. [id number] Information not available 12/11/2022 06:08:16 05/16/2023 CT, abdomen + pelvis, w/ contrast completed [address], [address], 07/24/2023 13:56:05 05/17/2023 imaging/diagnostic result completed [address], [address], 07/24/2023 13:56:40 05/20/2023 XR, kidney + ureter + bladder completed [address], [address], 07/24/2023 13:56:06 05/22/2023 CT, abdomen + pelvis, w/ contrast completed [address], [address], 07/24/2023 13:56:06 05/22/2023 imaging/diagnostic result completed [address], [address], 07/24/2023 13:56:54 Procedure Notes None recorded. Medical Equipment None Reported. Allergies No known drug allergies Medications Name Sig Start Date Stop Date Status Note LastModified by Organization Details LastModified Time amoxicill in 500 mg capsule TAKE 4 CAPSULES BY MOUTH 1 HOUR PRIOR TO DENTAL APPOINTM ENT 01/13 completed Not Available Not Available Not Available atorvasta tin 40 mg tablet active Not Available Not Available Not Available hydrocodo ne 5 mg-acetam inophen 325 mg tablet 09/22 completed Not Available Not Available Not Available lisinopri l 20 mg tablet TAKE 1 TABLET BY MOUTH EVERYDAY AT BEDTIME 07/21 completed Not Available Not Available Not Available ondansetr on HCl 4 mg tablet 09/22 completed Not Available Not Available Not Available niacin ER 500 mg tablet,ex tended release 24 hr TAKE 1 TABLET BY MOUTH DAILY 09/01 completed see pt case 08/30/17 Not Available Not Available Not Available metronida zole 500 mg tablet TAKE 1 TABLET BY MOUTH EVERY 8 HOURS 07/21 completed Not Available Not Available Not Available ciproflox acin 500 mg tablet TAKE 1 TABLET BY MOUTH EVERY 12 HOURS FOR 7 DAYS 07/21 completed Not Available Not Available Not Available peg-elect rolyte solution 420 gram oral solution DRINK 1/2 AT 5PM ON 05-13 AND OTHER 1/2 AT 5AM ON 05-14 completed Not Available Not Available Not Available oxycodone -acetamin ophen 5 mg-325 mg tablet TAKE 1 TABLET BY MOUTH EVERY 4 HOURS NEEDED FOR PAIN 01/13 completed Not Available Not Available Not Available metoclopr amide 5 mg tablet TAKE 1 TABLET BY MOUTH BEFORE MEALS AND AT BEDTIME 07/21 completed Not Available Not Available Not Available tamsulosi n 0.4 mg capsule 09/22 completed Not Available Not Available Not Available pantopraz ole 40 mg tablet,de layed release TAKE 1 TABLET BY MOUTH EVERY 12 HOURS 07/21 completed Not Available Not Available Not Available erythromy daniel 5 mg/gram (0.5 %) eye ointment APPLY A THIN RIBBON IN AFFECTED EYES 2 TO 3 TIMES DAILY FOR 7 DAYS 01/19 completed Not Available Not Available Not Available niacin 500 mg tablet TAKE 1 BY MOUTH DAILY 11/30 completed see pt case 08/30/[address] Davis Not Available Not Available Not Available lisinopri l 20 mg-hydroc hlorothia zide 25 mg tablet active Not Available Not Available No t Available aspirin 81 mg chewable tablet TAKE 1 TABLET (81 MG TOTAL) BY MOUTH 2 (TWO) TIMES A DAY FOR 56 DOSES 06/03 completed Not Available Not Available Not Available hydrocodo ne 5 mg-acetam inophen 500 mg tablet 09/22 completed Not Available Not Available Not Available bisacodyl 5 mg tablet,de layed release TAKE 6 TABLETS BY MOUTH AT 8AM ON 05-13-07/21 completed Not Available Not Available Not Available quinapril 20 mg tablet one tablet qd 12/28 completed changed to lisinopr il/hctz Not Available Not Available Not Available levofloxa daniel 500 mg tablet 09/22 completed Not Available Not Available Not Available loratadin e 10 mg tablet TAKE ONE TABLET BY MOUTH ONCE DAILY 09/16 completed Not Available Not Available Not Available amoxicill in 875 mg-potass ium clavulana te 125 mg tablet TAKE 1 TABLET BY MOUTH EVERY 12 HOURS 07/21 completed Not Available Not Available Not Available oxycodone 5 mg tablet TAKE 1 TABLET (5 MG TOTAL) BY MOUTH EVERY 4 (FOUR) HOURS NEEDED FOR PAIN 06/03 completed Not Available Not Available Not Available Boostrix Tdap 2.5 Lf unit-8 mcg-5 Lf/0.5 mL intramusc ular suspensio n 02/14 completed Not Available Not Available Not Available loratadin e 10 mg capsule one tablet qd 12/24 completed Not Available Not Available Not Available niacin ER 500 mg tablet,ex tended release TAKE 1 BY MOUTH DAILY 09/01 completed see pt case 08/30/[address] Ryan belle Not Available Not Available Not Available Eliquis 2.5 mg tablet TAKE 1 TABLET BY MOUTH 2 TIMES A DAY FOR 13 DAYS 01/13 completed Not Available Not Available Not Available Fluvirin 8725-9762 45 mcg (15 mcg x 3)/0.5 mL intramusc ular suspensio n active Not Available Not Available Not Available Flucelvax Quad 1243-2343 (PF) 60 mcg (15 mcg x 4)/0.5 mL IM syringe active Not Available Not Available Not Available Flucelvax Quad (PF) 60 mcg (15 mcg x 4)/0.5 mL IM syringe active Not Available Not Available Not Available Fluzone Quad (P F) 60 mcg(15 mcgx4)/0. 5 mL intramusc ular syringe TO BE ADMINIST ERED BY PHARMACI ST FOR IMMUNIZA TION 10/28 completed Not Available Not Available Not Available Fluzone Quad (PF) 60 mcg (15 mcg x 4)/0.5 mL IM syringe active Not Available Not Available Not Available Fluzone Quad (PF) 60 mcg (15 mcg x 4)/0.5 mL IM syringe active Not Available Not Available Not Available Vitals Date Recorded Body mass index (BMI) Body height Heart rate Body temperature Body weight Systolic blood pressure Diastolic blood pressure Provider Name and Address Organization Details Last Updated DateTime 2 24.9 kg/m2 185.42 cm 84 /min 97.6 [degF] 55086.9 6 g 118 mm[Hg] 60 mm[Hg] Not Available [facility] 3 05:58:24 Date Recorded Body mass index (BMI) Body height Heart rate Body temperature Body weight Systolic blood pressure Diastolic blood pressure Provider Name and Address Organization Details Last Updated DateTime 2 23.9 kg/m2 185.42 cm 65 /min 96.5 [degF] 02257.2 2 g 110 mm[Hg] 62 mm[Hg] Not Available [facility] 3 05:58:24 Date Recorded Body mass index (BMI) Body height Heart rate Body temperature Body weight Systolic blood pressure Diastolic blood pressure Provider Name and Address Organization Details Last Updated DateTime 2 25.2 kg/m2 185.42 cm 85 /min 98 [degF] 30753.1 4 g 120 mm[Hg] 72 mm[Hg] Not Available [facility] 3 05:58:24 Date Recorded Body height Body mass index (BMI) Body weight Body temperature Heart rate Systolic blood pressure Diastolic blood pressure Provider Name and Address Organization Details Last Updated DateTime 3 185.42 cm 24.5 kg/m2 02853.1 8 g 98.5 [degF] 76 /min 110 mm[Hg] 72 mm[Hg] Latasha baird RN [facility] [employer] 3 10:42:13 Date Recorded Body height Body mass index (BMI) Body weight Body temperature Heart rate Systolic blood pressure Diastolic blood pressure Provider Name and Address Organization Details Last Updated DateTime 3 185.42 cm 24.4 kg/m2 94256.5 9 g 98 [degF] 70 /min 120 mm[Hg] 74 mm[Hg] CASTRO Ponce [facility] 3 10:40:31 Social History Question Answer Notes LastModified by Organizat ion Details LastModified Time Tobacco Smoking Status Never Smoker Not Available [facility] 12/11/2022 05:55:14 Do You Have An Advance Directive? No MIGRATION.37382 [id number] Information not available 12/11/2022 What Is Your Level Of Alcohol Consumption? Moderate MIGRATION.47300 02825 Information not available 12/11/2022 Do You Wear A Helmet When Biking? Yes MIGRATION.66232 65641 Information not available 12/11/2022 Are You Blind Or Do You Have Difficulty Seeing? No MIGRATION.11035 00216 Information not available 12/11/2022 What Is Your Level Of Caffeine Consumption? Moderate MIGRATION.12338 66743 Information not available 12/11/2022 In The 14 Days Before Symptom Onset, Have You Had Close Contact With A Laboratory-confi rmed COVID-19 While That Case Was Ill? No MIGRATION.65047 20645 Information not available 12/11/2022 In The 14 Days Before Symptom Onset, Have You Had Close Contact With A Person Who Is Under Investigation For COVID-19 While That Person Was Ill? No MIGRATION.15684 43504 Information not available 12/11/2022 Are You Currently Employed? No [email or web address] Information not available 01/13/2023 Are You Deaf Or Do You Have Serious Difficulty Hearing? No MIGRATION.38428 86927 Information not available 12/11/2022 What Type Of Diet Are You Following? REGULAR MIGRATION.08444 43845 Information not available 12/11/2022 What Is The Highest Grade Or Level Of School You Have Completed Or The Highest Degree You Have Received? [id number] MIGRATION.99262 14797 Information not available 12/11/2022 What Is Your Occupation? Retired MIGRATION.92278 47054 Information not available 12/11/2022 Have There Been Any Changes To Your Family Or Social Situation? No MIGRATION.75381 03519 Information not available 12/11/2022 What Is The Fluoride Status Of Your Home? Unknown MIGRATION.51741 88195 Information not available 12/11/2022 Are There Any Guns Present In Your Home? No MIGRATION.36053 15825 Information not available 12/11/2022 Do You Use Insect Repellent Routinely? No MIGRATION.91418 08803 Information not available 12/11/2022 [facility] MIGRATION.45121 82108 Information not available 12/11/2022 Do You Have A Medical Power Of Supervisor Scrap Preparation? No MIGRATION.74089 21604 Information not available 12/11/2022 What Was The Date Of Your Most Recent Tobacco Screening? 07/21/2023 [email or web address] Information not available 07/21/2023 Have You Ever Been Counseled For Unhealthy Alcohol Use? No MIGRATION.68433 43630 Information not available 12/11/2022 Do You Have Any Pets? Yes MIGRATION.54258 20719 Information not available 12/11/2022 What Is Your Relationship Status? MIGRATION.44550 98142 Information not available 12/11/2022 Do You Use Your Seat Belt Or Car Seat Routinely? Yes MIGRATION.08240 94863 Information not available 12/11/2022 Do You Have Smoke And Carbon Monoxide Detectors In Your Home? Yes MIGRATION.50720 11826 Information not available 12/11/2022 Are You Passively Exposed To Smoke? No MIGRATION.37958 65236 Information not available 12/11/2022 Are There Any Smokers In Your House? No MIGRATION.86885 44544 Information not available 12/11/2022 What Types Of Sporting Activities Do You Participate In? None MIGRATION.35241 11027 Information not available 12/11/2022 Do You Feel Stressed (tense, Restless, Nervous, Or Anxious, Or Unable To Sleep At Night)? [id number] MIGRATION.46164 37836 Information not available 12/11/2022 Do You Use Any Illicit Or Recreational Drugs? No MIGRATION.92058 11294 Information not available 12/11/2022 Do You Use Sunscreen Routinely? No MIGRATION.40437 52123 Information not available 12/11/2022 Has Tobacco Cessation Counseling Been Provided? No Not Needed-ne kofi Smoked MIGRATION.61094 07524 Information not available 12/11/2022 Have You Recently Traveled Abroad? No MIGRATION.29004 62336 Information not available 12/11/2022 Do You Have Any Dietary Restrictions? No MIGRATION.94306 22241 Information not available 12/11/2022 Do You Or Have You Ever Used Any Other Forms Of Tobacco Or Nicotine? No MIGRATION.78604 20574 Information not available 12/11/2022 Sex: Male Functional Status Question Answer Note LastModified by Organizat ion Details LastModified Time Do you have difficulty walking or climbing stairs? No MIGRATION.0372384 026 Information not available 12/11/2022 Do you have transportation difficulties? No MIGRATION.3395219 026 Information not available 12/11/2022 Are you able to walk? YESWOREST MIGRATION.7310610 026 Information not available 12/11/2022 Do you have difficulty doing errands alone? No MIGRATION.5314486 026 Information not available 12/11/2022 Are you able to care for yourself? Yes MIGRATION.8807284 026 Information not available 12/11/2022 Do you have difficulty dressing or bathing? No MIGRATION.5759839 026 Information not available 12/11/2022 What is your exercise level? Moderate MIGRATION.7341812 026 Information not available 12/11/2022 Mental Status Question Answer Note LastModified by Organizat ion Details LastModified Time Do you have difficulty concentrating, remembering or making decisions? No MIGRATION.[id number] 6 Information not available 12/11/2022 Family History Relationship Description Onset Age of this Age Resolved Age Notes LastModified by Organization Details LastModified Time Mother Hypertensive disorder MIGRATION.790 [id number] Not available 12/11/2022 05:56:45 Father Malignant neoplasm of liver MIGRATION.579 [id number] Not available 12/11/2022 05:56:45 Medical History Condition Response NERVE DISEASE N BLINDNESS N RHEUMATIC FEVER N KIDNEY STONES Y BLADDER PROBLEMS N MRSA N OTHER # 1 N POLIO N LUNG DISEASE/DISORDER N HISTORY OF DRUG ABUSE N RADIATION / CHEMOTHERAPY N COPD N Other # 2 N BLOOD DISEASES N EAR OR HEARING PROBLEMS N MUMPS N SHINGLES N DEPRESSION (INCLUDING POST ) N BOWEL PROBLEMS N STROKE/TIA N ULCERS N BENIGN PROSTATIC HYPERPLASIA N MEASLES N HYPOTENSION N MYOCARDIAL INFARCTION N OBESITY N GERD/NAUSEA Y ANEURYSM N URINARY/BLADDER/KIDNEY PROBLEMS N CORONARY ARTERY DISEASE (CAD) N ADDICTION CONCERNS N Impotence N ENDOMETRIOSIS N USE OF BLOOD THINNERS N SKIN PROBLEMS N GASTROINTESTINAL DISORDER N PERIPHERAL VASCULAR DISEASE N MUSCLE,JOINT OR BONE PROBLEMS N GASTROINTESTINAL BLEEDING N BLOOD CLOTS N ASTHMA N CATARACTS N ERECTILE DYSFUNCTION N VARICOSITIES Y GI PROBLEMS N Low Testosterone N INFERTILITY N AIDS/HIV N CHEMOTHERAPY / RADIATION N LIVER DISEASE N MALE HYPOGONADISM N HYPERTENSION Y Deficiency N TOURETTE'S N ANXIETY DISORDER N BLOOD TRANSFUSION N ANEMIA/BLOOD DISORDER N CHRONIC EAR INFECTIONS N BRONCHITIS N TUBERCULOSIS N GLAUCOMA N FOOT PROBLEM N DIVERTICULITIS N SLEEP APNEA N CHICKENPOX N INFECTIOUS DISEASE N PROSTATE N HEART ARRHYTHMIA N INSOMNIA N HIGH CHOLESTEROL / HYPERLIPIDEMIA Y EYE PROBLEMS N HYPERTHYROIDISM N EDEMA N CHRONIC PAIN SYNDROME N HYPOTHYROIDISM N CAROTID BLOCKAGE N CONSTIPATION N BACK / NECK PROBLEMS N HAVE YOU BEEN HOSPITALIZED OR SEEN IN [facility] IN THE PAST YEAR ? N ATHEROSCLEROSIS N BREAST PROBLEMS N DIALYSIS N ECZEMA N OSTEOPOROSIS N ARTHRITIS N APPENDICITIS N DIABETES, TYPE N BAD TEETH N ENT N HEARTBURN / REFLUX N AUTISM SPECTRUM DISORDER (ASD) N HEPATITIS / LIVER DISEASE N GOUT N SLEEP DISORDER N ALZHEIMER'S DISEASE N Brain Problems N DEMENTIA N HERPES N SEIZURES/EPILEPSY N HEADACHES/MIGRAINES N VASCULAR DISEASE N PACEMAKER N Blood Disorder N DIZZINESS N HEART DISEASE/HEART PROBLEMS N KIDNEY DISEASE N MULTIPLE SCLEROSIS N CANCER: SPECIFY N CARDIAC ARRHYTHMIA N ATRIAL FIBRILLATION N Gall Stones N PULMONARY EMBOLISM N AUTOIMMUNE DISEASE N Immunizations Vaccine Type Date Status Note Provider Nam e and Address Organization Details Recorded Time COVID-19, mRNA, LNP-S, PF, 30 mcg/0.3 mL dose 1 completed Not Available [facility] 12/11/2022 06:07:42 COVID-19, mRNA, LNP-S, PF, 30 mcg/0.3 mL dose 1 completed Not Available [facility] 12/11/2022 06:07:42 Influenza, split virus, trivalent, preservative 0 completed Not Available [facility] 12/11/2022 06:07:42 tetanus toxoid, unspecified formulation 9 completed Not Available [facility] 12/11/2022 06:07:42 Influenza, split virus, quadrivalent, preservative 9 completed Not Available [facility] 12/11/2022 06:07:42 influenza, unspecified formulation 8 completed Not Available [facility] 12/11/2022 06:07:42 Influenza, split virus, quadrivalent, preservative 7 completed Not Available [facility] 12/11/2022 06:07:42 Tdap 7 completed Not Available [facility] 12/11/2022 06:07:42 Influenza, MDCK, trivalent, PF 6 completed Not Available [facility] 12/11/2022 06:07:43 COVID-19, mRNA, LNP-S, PF, 30 mcg/0.3 mL dose 1 completed Not Available [facility] 12/11/2022 06:07:43 Influenza, split virus, trivalent, preservative completed Not Available [facility] 12/11/2022 06:07:43 Past Encounters Encounter ID Performer Location Encounter Start Date Encounter Closed Date Diagnosis/Indication Diagnosis SNOMED-CT Code Diagnosis ICD10 Code Diagnosis Note [id number] [facility] [address] [place] [address] [address] [address] 06/11/2021 00:00:00 06/11/2021 22:08:06 [id number] [facility] [address] [place] [address] [address] [address] 12/03/2021 00:00:00 12/03/2021 10:48:38 [id number] [facility] [address] [place] [address] [address] [address] 02/04/2022 00:00:00 02/24/2022 15:35:07 [id number] [facility] [address] [place] [address] [address] [address] 06/03/2022 00:00:00 06/03/2022 10:51:23 [id number] [facility] [address] [place] [address] [address] [address] 09/16/2022 00:00:00 09/16/2022 23:41:46 [id number] Kleber Davis MD [facility] [address] [place] [address] [address] [address] 01/13/2023 10:20:15 01/13/2023 11:15:55 Benign essential hypertension 0695696 I10 Screening for malignant neoplasm of prostate 464378686 Z12.5 Screening for malignant neoplasm of colon 892329931 Z12.11 Dyslipidemia 662078309 E 78.5 [id number] Kleber Davis MD [facility] [address] [place] [address] [address] [address] 07/21/2023 10:24:30 07/21/2023 11:44:43 Benign essential hypertension 9616105 I10 Dyslipidemia 306999340 E 78.5 Gastroesop hageal reflux disease 294051923 K21.9 Health Concerns Section Related Observation LastModified by Organization Detai ls LastModified Time None Recorded Concern Status LastModified by Organization Details LastModified Time None Recorded Advance Directives Directive N: Payers Encounter Date Sequence Insurance Name Policy Number Policy Zavaleta Covered Member ID Zavaleta Member ID Guarantor Name 01/13/2023 1 [employer] - ALLIED BENEFITS - OPEN ACCESS Carla Pickering [id number] Robin Garcialey 07/21/2023 1 [employer] - ALLIED BENEFITS - OPEN ACCESS Carla Pickering [id number] Robin Garcialey Notes Date Note Type Note Provider Name and Address Organization Details Recorded Time 01/13/2023 text/html Had his knee ernesto kashmir that when fineDyslipidemia trying to watch his low-fat dietHypertension no headache no dizzinessVaricose veins about the same Kleber Davis MD [address] [address], [place], [address], [employer] 01/13/2023 21:56:00 07/21/2023 text/html 1. Colonoscopy. Perforation. Abscess. Hospitalized. I are drainage. No surgery. Slow recovery. Getting back to almost normal.2. Hypertension no headache no dizziness3. GERD no nausea no vomiting4. Dyslipidemia taking his medication trying to follow a low-fat diet5. Venous insufficiency of the legs stable Kleber Davis MD [address] [facility] [address], [place], [address], [employer] 07/26/2023 12:26:07
--- OUTSIDE RECORDS SUMMARY | 2025-01-02 11:50 | XMS_ITS | Clinical Summary ---
Author Organization [facility] Address [address] [place] [address] Care Team Providers Care Train Driver Name Role Phone Kleber Davis MD Primary Care Provider [phone] Narciso Hernandez MD Unavailable [phone] Allergies No known active allergies Medications lisinopril-hydr [...] Take 1 tablet by mouth daily Active iniyzwpv-hhj-gx ondroit-vit D3 750 mg-125 mg -600 mg tablet Take 1 capsule by mouth 2 (two) times a day Active bm-je-ykrJ-asbN j-Xxb-Wwg-hc124 (Airborne, ascorbate sodium,) 333-1.7 mg tablet,chewable Take 2 tablets by mouth nightly Active amoxicillin (AMOXIL) 500 mg tablet/capsule Take four capsules one hour prior to any dental procedure 12 tablet/capsul e 4 Active Active Problems Problem Noted Date Diagnosed Date Status post total left knee replacement 09/26/20 22 Primary osteoarthritis of left knee 07/19/2022 Overview (07/19/2022): Added automatically from request for surgery [id number] Status post total right knee replacement 022 Primary osteoarthritis of right knee 12/19/2021 Overview (12/19/2021): Added automatically from request for surgery [id number] Pain of left lower extremity 02/21/2016 Pain of right lower extremity 02/21/2016 Surgical History Surgery Date Site/Laterality Comments LITHOTRIPSY 10/13/2009 - 10/12/2010 CYSTOSCOPY 10/13/2009 - 10/12/2010 COLONOSCOPY REPLACEMENT TOTAL KNEE 02/14/2022 Right JOINT REPLACEMENT 09/26/2022 Left total knee Medical History Medical History Date Comments Hypercholesteremia Hypertension History of kidney stones 2009 Anesthesia complication 02/2022 Pt state s had N/V, and then about 2 weeks post anesthesia, pt experienced strange taste and smell, diminished appetite. Lost 20 lbs. Hyperlipidemia Allergic rhinitis seasonal Wears glasses Heel pain 02/2022 Rt heel after kn ee replacement, very sensitive to touch . Motion sickness PONV (postoperative nausea and vomiting) Family History Medical History Relation Name Comments Liver cancer Father Hyperlipidemia Mother Hypertension Mother Relation Name Status Comments Father Mother Social History Tobacco Use Types Packs/Day Years [...] week 09/27/2022 How often do you attend [facility] or jew services? Never 09/27/2022 Do you belong to any clubs o r organizations such as mosque groups, unions, fraternal or athletic groups, or [...] place to sleep or slept in a detention (including now)? No 02/14/2022 Sex and Gender Information Value Date Recorded Sex Assigned at Not on file Legal Sex Male 11:56 AM CHILDCARE ATTENDANT Gender Identity Not on file Sexual Orientation Not on file Obstetrics History Last Filed Vital Signs Vital Sign Reading Time Taken Comments Blood Pressure 137/71 09/27/2022 4:00 PM CHILDCARE ATTENDANT Pulse 96 09/27/2022 4:00 PM CHILDCARE ATTENDANT Temperature 36.8 C (98.3 F) 09/27/2022 4:00 PM CHILDCARE ATTENDANT Respiratory Rate 18 09/27/2022 4:00 PM CHILDCARE ATTENDANT Oxygen Saturation 100% 09/27/2022 4:00 PM CHILDCARE ATTENDANT Inhaled Oxygen Concentration - - Weight 84.8 kg (187 lb) 09/26/2023 11:07 AM CHILDCARE ATTENDANT Height 182.9 cm (6') 09/26/2023 11:07 AM CHILDCARE ATTENDANT Body Mass Index 25.36 09/26/2023 11:07 AM CHILDCARE ATTENDANT Plan of Treatment Health Maintenance Due Date Last Done Comments Colon Cancer Screening-Colonoscopy 1957 Depression Screening 1957 Hepatitis C Screening 1957 Prostate Cancer Screening-PSA 1957 Hepatitis B Screening 1975 Pneumococcal vaccine 65+ (1 of 1 - PCV) 2007 Zoster Vaccine (1 of 2) 2007 Abdominal Aortic Aneurysm (A AA) Screen 2022 Well Visit 65+ 2022 Fall Risk Assessment 09/27/2023 09/27/2022 Covid-19 Vaccine (5 - 2023-2 5 season) 2024 08/02/2022, 10/07/2021, 01/16/2021, Additional history exists Influenza Vaccine (#1) 2024 , 08/18/2021, 07/08/2020, Additional history exists DTaP/Tdap/Td Vaccine (2 - Td or Tdap) 11/04/2026 11/04/2016 Medical Devices Implanted Type Area Microsoft Bi Developer Device Identifier Shelf Expiration Date Model / Serial / Lot [employer] Simplex P Radiopaque Full Dose Cement Bone Sterile 6191-1-010 - [id number] Implanted:Qty: 2 on 02/14/2022 by Narciso Hernandez MD at [facility] [employer] 05/12/2024 6191-1-010 / / [id number] [employer] Ruth Ii 35mm Resurface Component Patellar [id number] - [id number] Implanted:Qty: 1 on 02/14/2022 by Narciso Hernandez MD at [facility] [employer] [id number] 11/04/2031 [id number] / / [id number] [employer] Ruth Ii Cement Knee Right 7 Baseplate Tibial Titanium [id number] - [id number] Implanted:Qty: 1 on 02/14/2022 by Narciso Hernandez MD at [facility] [employer] [id number] 10/22/2030 [id number] / / [id number] [employer] [id number] Rtuh Ii Legion Spc Cruciate Retain Knee Right 8 Component - [id number] Implanted:Qty: 1 on 02/14/2022 by Narciso Hernandez MD at [facility] [employer] [id number] 02/13/2030 [id number] / / [id number] [employer] Insert Tibial Knee Fixed Cr High Flex Legion 8mm Size 7 8 Polyethylene [id number] - [id number] Implanted:Qty: 1 on 02/14/2022 by Narciso Hernandez MD at [facility] [employer] 10/11/2024 [id number] / / [id number] [employer] Simplex P Radiopaque Full Dose Cement Bone Sterile 6191-1-010 - [id number] Implanted:Qty: 2 on 09/26/2022 by Narciso Hernandez MD at [facility] [employer] 03/12/2025 6191-1-010 / / [id number] [employer] Legion 13mm Cruciate Retaining High Flexion Knee 7-8 Insert [id number] - [id number] Implanted:Qty: 1 on 09/26/2022 by Narciso Hernandez MD at [facility] [employer] [id number] 06/05/2031 [id number] / / [id number] [employer] Ruth Ii Cement Left Knee 7 Baseplate Tibial Titanium Nonporous [id number] - [id number] Implanted:Qty: 1 on 09/26/2022 by Narciso Hernandez MD at [facility] [employer] [id number] 04/16/2032 [id number] / / [id number] [employer] Ruth Ii Legion Spc Cruciate Retain Knee Left 8 Component [id number] - [id number] Implanted:Qty: 1 on 09/26/2022 by Narciso Hernandez MD at [facility] [employer] [id number] 05/17/2032 [id number] / / [id number] [employer] Ruth Ii 35mm Resurface Component Patellar [id number] - [id number] Implanted:Qty: 1 on 09/26/2022 by Narciso Hernandez MD at [facility] [employer] [id number] 12/08/2031 [id number] / / [id number] Insurance [employer] OPEN ACCESS MEDICARE [employer] OPEN ACCESS Advance Directives For more information, please contact: [phone] * Full Code (Latest Code Status on File) Date Activated Date Inactivated Comments 09/26/2022 12:13 PM 09/27/2022 8:55 PM * Full Code Date Activated Date Inactivated Comments 02/14/2022 1:25 PM 02/16/2022 5:48 PM Care Teams Train Driver Relationship Specialty Start Date End Date Kleber Davis MD PCP - General Internal Medicine 12/18/21 Narciso Hernandez MD [address] [facility] [address] [address] Consulting Physician Orthopedic Surgery 02/15/22
--- NOTE | 2025-01-02 11:51 | ECG_ITS ---
Test Date: 2025-01-02 11:57:16 Measurements Intervals [place] Rate: 67 P: 55 SD: 177 QRS: 44 QRSD: 90 T: 58 QT: 387 QTc: 409 Interpretive Statements SINUS RHYTHM No previous ECG available for comparison Electronically Signed On 01-02-2025 13:36:23 CDT by Anderson Vidal M.D.
[2025-01-02 12:01] VITALS: BP 156/74; PULSE 70; RESP 16; TEMP 36.1; O2SAT 100
[2025-01-02 12:12] LABS: Basophils Percent Auto 0.4 % (0.2-1.2); Eosinophils Absolute Auto 0.2 K/mm3 (0-0.3); Eosinophils Percent Auto 2.5 % (0-4.4); Hematocrit 42.6 % (42.0-52.0); Hemoglobin 14.4 g/dL (14.0-18.0); Immature Granulocyte Absolute 0.02 K/mm3 (0.00-0.031); Immature Granulocyte Percent A 0.2 % (0-0.5); Lymphocytes Absolute Auto 1.98 K/mm3 (0.9-3.2); Lymphocytes Percent Auto 24.4 % (18.3-44.2); Mean Corpuscular HGB Conc 33.8 g/dl (32-36); Mean Corpuscular Hemoglobin 31.7 pg (26-34); Mean Corpuscular Volume 93.8 fl (80-100); Mean Platelet Volume 9.6 fl (7.4-10.4); Monocytes Absolute Auto 0.6 K/mm3 (0.1-0.6); Neutrophils Absolute Auto 5.3 K/mm3 (1.3-6.7); Neutrophils Percent Auto 65.5 % (45.5-73.1); Platelet Count Result 205 k/mm3 (150-375); Red Blood Count 4.54 M/mm3 (4.6-6.20); Red Cell Distribution Width 13.2 % (11.5-14.5); White Blood Count 8.1 K/mm3 (4.5-10.0)
[2025-01-02 12:21] LABS: Alanine Aminotransferase 35 U/L (6-50); Albumin Level 4.5 g/dL (3.5-5.1); Alkaline Phosphatase 86 U/L (38-126); Anion Gap 10 mmol/L (4-12); Aspartate Amino Transferase 30 U/L (17-59); Bilirubin,Total 0.8 mg/dL (0.2-1.3); Blood Urea Nitrogen 20 mg/dL (9-20); Calcium 9.9 mg/dL (8.4-10.2); Carbon Dioxide 29 mmol/L (22-30); Chloride 99 mmol/L (98-107); Estimated CRCL calculation 62 ml/min; Estimated Glomerular Filt Rate > 60; Glucose 142 mg/dL (65-110); Lipase 136 U/L (23-300); Sodium 138 mmol/L (137-145)
[2025-01-02 12:33] LABS: Troponin I < 0.012 ng/mL (0.000-0.034)
[2025-01-02 12:34] LABS: INR 0.9; Partial Thromboplastin Time 24.1 Seconds (22.3-36.8); Prothrombin Time 12.7 Seconds (11.1-14.7)
[2025-01-02 13:47] VITALS: BP 145/63; PULSE 87; RESP 16; O2SAT 97
--- NOTE | 2025-01-02 13:48 | PC.NURSE ---
Pt. states he had one episode of chest pain that woke him up out of sleep early this morning. It didn't last very long. Denies any current CP or SOB. Pt. is concerned b/c his recently had a quadruple bypass and he's been under a lot of stress.
[2025-01-02] MEDS: ASPIRIN 81 MG CHEWABLE TABLET 324 MG PO (13:56)
--- OUTSIDE RECORDS SUMMARY | 2025-01-02 14:20 | XMS_ITS | Referral Summary ---
Author Organization [facility] Address [address] [place] [address] Care Team Providers Care Vp Ancillary Name Role Phone Kleber Davis MD Primary Care Provider [phone] Narciso Hernandez MD Unavailable [phone] Allergies No known active allergies Medications lisinopril-hydr [...] Take 1 tablet by mouth daily Active wpeoefbr-dlk-cd ondroit-vit D3 750 mg-125 mg -600 mg tablet Take 1 capsule by mouth 2 (two) times a day Active xb-oa-dzyU-asbN o-Jfp-Dnf-hc124 (Airborne, ascorbate sodium,) 333-1.7 mg tablet,chewable Take 2 tablets by mouth nightly Active amoxicillin (AMOXIL) 500 mg tablet/capsule Take four capsules one hour prior to any dental procedure 12 tablet/capsul e 4 Active Active Problems Problem Noted Date Diagnosed Date Status post total left knee replacement 09/26/20 22 Primary osteoarthritis of left knee 07/19/2022 Overview (07/19/2022): Added automatically from request for surgery [id number] Status post total right knee replacement 022 Primary osteoarthritis of right knee 12/19/2021 Overview (12/19/2021): Added automatically from request for surgery [id number] Pain of left lower extremity 02/21/2016 Pain [...] How often do you attend [facility] or holiness services? Never 09/27/2022 Do you belong to any clubs o r organizations such as yarsanism groups, unions, fraternal or athletic groups, or [...] place to sleep or slept in a skilled nursing (including now)? No 02/14/2022 Sex and Gender Information Value Date Recorded Sex Assigned at Not on file Legal Sex Male 11:56 AM AQUA AMMONIA OPERATOR Gender Identity Not on file Sexual Orientation Not on file Last Filed Vital Signs Vital Sign Reading Time Taken Comments Blood Pressure 137/71 09/27/2022 4:00 PM AQUA AMMONIA OPERATOR Pulse 96 09/27/2022 4:00 PM AQUA AMMONIA OPERATOR Temperature 36.8 C (98.3 F) 09/27/2022 4:00 PM AQUA AMMONIA OPERATOR Respiratory Rate 18 09/27/2022 4:00 PM AQUA AMMONIA OPERATOR Oxygen Saturation 100% 09/27/2022 4:00 PM AQUA AMMONIA OPERATOR Inhaled Oxygen Concentration - - Weight 84.8 kg (187 lb) 09/26/2023 11:07 AM AQUA AMMONIA OPERATOR Height 182.9 cm (6') 09/26/2023 11:07 AM AQUA AMMONIA OPERATOR Body Mass Index 25.36 09/26/2023 11:07 AM AQUA AMMONIA OPERATOR Plan of Treatment Not on file Medical Devices Implanted Type Area [employer] Developer Device Identifier Shelf Expiration Date Model / Serial / Lot [employer] Simplex P Radiopaque Full Dose Cement Bone Sterile 6191-1-010 - [id number] Implanted:Qty: 2 on 02/14/2022 by Narciso Hernandez MD at [facility] [employer] 05/12/2024 6191-1-010 / / [id number] [employer] Ruth Ii 35mm Resurface Component Patellar [id number] - [id number] Implanted:Qty: 1 on 02/14/2022 by Narciso Hernandez MD at [facility] [employer] [id number] 11/04/2031 [id number] / / [id number] [employer] Ruth Ii Cement Knee Right 7 Baseplate Tibial Titanium [id number] - [id number] Implanted:Qty: 1 on 02/14/2022 by Narciso Hernandez MD at [facility] [employer] [id number] 10/22/2030 [id number] / / [id number] [employer] [id number] Ruth Ii Legion Spc Cruciate Retain Knee Right 8 Component - [id number] Implanted:Qty: 1 on 02/14/2022 by Narciso Hernandez MD at [facility] [employer] [id number] 02/13/2030 [id number] / / [id number] [employer] Insert Tibial Knee Fixed Cr High Flex Legion 8mm Size 7 8 Polyethylene [id number] - [id number] Implanted:Qty: 1 on 02/14/2022 by Narciso Hernandez MD at [facility] [employer] 10/11/2024 [id number] / / [id number] [employer] Simplex P Radiopaque Full Dose Cement Bone Sterile 6191-1-010 - [id number] Implanted:Qty: 2 on 09/26/2022 by Narciso Hernandez MD at [facility] [employer] 03/12/2025 6191-1-010 / / [id number] [employer] Legion 13mm Cruciate Retaining High Flexion Knee 7-8 Insert [id number] - [id number] Implanted:Qty: 1 on 09/26/2022 by Narciso Hernandez MD at [facility] [employer] [id number] 06/05/2031 [id number] / / [id number] [employer] Ruth Ii Cement Left Knee 7 Baseplate Tibial Titanium Nonporous [id number] - [id number] Implanted:Qty: 1 on 09/26/2022 by Narciso Hernandez MD at [facility] [employer] [id number] 04/16/2032 [id number] / / [id number] [employer] Ruth Ii Legion Spc Cruciate Retain Knee Left 8 Component [id number] - [id number] Implanted:Qty: 1 on 09/26/2022 by Narciso Hernandez MD at [facility] [employer] [id number] 05/17/2032 [id number] / / [id number] [employer] Ruth Ii 35mm Resurface Component Patellar [id number] - [id number] Implanted:Qty: 1 on 09/26/2022 by Narciso Hernandez MD at [facility] [employer] [id number] 12/08/2031 [id number] / / [id number] Insurance [employer] OPEN ACCESS MEDICARE [employer] OPEN ACCESS Advance Directives For more information, please contact: [phone] * Full Code (Latest Code Status on File) Date Activated Date Inactivated Comments 09/26/2022 12:13 PM 09/27/2022 8:55 PM * Full Code Date Activated Date Inactivated Comments 02/14/2022 1:25 PM 02/16/2022 5:48 PM Care Teams Vp Ancillary Relationship Specialty Start Date End Date Kleber Davis MD PCP - General Internal Medicine 12/18/21 Narciso Hernandez MD [address] [facility] [address] [place] [address] Consulting Physician Orthopedic Surgery 02/15/22
--- OUTSIDE RECORDS SUMMARY | 2025-01-02 14:20 | XMS_ITS | Clinical Summary ---
Author Organization [facility] Address [address] [place] [address] Care Team Providers Care Metal Control Worker Name Role Phone Kleber Davis MD Primary Care Provider [phone] Narciso Hernandez MD Unavailable [phone] Allergies No known active allergies Medications lisinopril-hydr [...] Take 1 tablet by mouth daily Active bptjzvhd-xst-fu ondroit-vit D3 750 mg-125 mg -600 mg tablet Take 1 capsule by mouth 2 (two) times a day Active rj-iv-byyR-asbN o-Dwy-Rcg-hc124 (Airborne, ascorbate sodium,) 333-1.7 mg tablet,chewable Take 2 tablets by mouth nightly Active amoxicillin (AMOXIL) 500 mg tablet/capsule Take four capsules one hour prior to any dental procedure 12 tablet/capsul e 4 Active Active Problems Problem Noted Date Diagnosed Date Status post total left knee replacement 09/26/20 22 Primary osteoarthritis of left knee 07/19/2022 Overview (07/19/2022): Added automatically from request for surgery [id number] Status post total right knee replacement 022 Primary osteoarthritis of right knee 12/19/2021 Overview (12/19/2021): Added automatically from request for surgery [id number] Pain of left lower extremity 02/21/2016 Pain [...] week 09/27/2022 How often do you attend [facility] or sabianist services? Never 09/27/2022 Do you belong to any clubs o r organizations such as taoism groups, unions, fraternal or athletic groups, or [...] place to sleep or slept in a care home (including now)? No 02/14/2022 Sex and Gender Information Value Date Recorded Sex Assigned at Not on file Legal Sex Male 11:56 AM PILLAR MAN Gender Identity Not on file Sexual Orientation Not on file Obstetrics History Last Filed Vital Signs Vital Sign Reading Time Taken Comments Blood Pressure 137/71 09/27/2022 4:00 PM PILLAR MAN Pulse 96 09/27/2022 4:00 PM PILLAR MAN Temperature 36.8 C (98.3 F) 09/27/2022 4:00 PM PILLAR MAN Respiratory Rate 18 09/27/2022 4:00 PM PILLAR MAN Oxygen Saturation 100% 09/27/2022 4:00 PM PILLAR MAN Inhaled Oxygen Concentration - - Weight 84.8 kg (187 lb) 09/26/2023 11:07 AM PILLAR MAN Height 182.9 cm (6') 09/26/2023 11:07 AM PILLAR MAN Body Mass Index 25.36 09/26/2023 11:07 AM PILLAR MAN Plan of Treatment Health Maintenance Due Date [...] 11/04/2026 11/04/2016 Medical Devices Implanted Type Area Behavior Specialist Device Identifier Shelf Expiration Date Model / Serial / Lot [employer] Simplex P Radiopaque Full Dose Cement Bone Sterile 6191-1-010 - [id number] Implanted:Qty: 2 on 02/14/2022 by Narciso Hernandez MD at [facility] [employer] 05/12/2024 6191-1-010 / / [id number] [employer] Ruth Ii 35mm Resurface Component Patellar [id number] - [id number] Implanted:Qty: 1 on 02/14/2022 by Narciso Hernandez MD at [facility] [employer] [id number] 11/04/2031 [id number] / / [id number] [employer] Ruth Ii Cement Knee Right 7 Baseplate Tibial Titanium [id number] - [id number] Implanted:Qty: 1 on 02/14/2022 by Narciso Hernandez MD at [facility] [employer] [id number] 10/22/2030 [id number] / / [id number] [employer] [id number] Ruth Ii Legion Spc Cruciate Retain Knee Right 8 Component - [id number] Implanted:Qty: 1 on 02/14/2022 by Narciso Hernandez MD at [facility] [employer] [id number] 02/13/2030 [id number] / / [id number] [employer] Insert Tibial Knee Fixed Cr High Flex Legion 8mm Size 7 8 Polyethylene [id number] - [id number] Implanted:Qty: 1 on 02/14/2022 by Narciso Hernandez MD at [facility] [employer] 10/11/2024 [id number] / / [id number] [employer] Simplex P Radiopaque Full Dose Cement Bone Sterile 6191-1-010 - [id number] Implanted:Qty: 2 on 09/26/2022 by Narciso Hernandez MD at [facility] [employer] 03/12/2025 6191-1-010 / / [id number] [employer] Legion 13mm Cruciate Retaining High Flexion Knee 7-8 Insert [id number] - [id number] Implanted:Qty: 1 on 09/26/2022 by Narciso Hernandez MD at [facility] [employer] [id number] 06/05/2031 [id number] / / [id number] [employer] Ruth Ii Cement Left Knee 7 Baseplate Tibial Titanium Nonporous [id number] - [id number] Implanted:Qty: 1 on 09/26/2022 by Narciso Hernandez MD at [facility] [employer] [id number] 04/16/2032 [id number] / / [id number] [employer] Ruth Ii Legion Spc Cruciate Retain Knee Left 8 Component [id number] - [id number] Implanted:Qty: 1 on 09/26/2022 by Narciso Hernandez MD at [facility] [employer] [id number] 05/17/2032 [id number] / / [id number] [employer] Ruth Ii 35mm Resurface Component Patellar [id number] - [id number] Implanted:Qty: 1 on 09/26/2022 by Narciso Hernandez MD at [facility] [employer] [id number] 12/08/2031 [id number] / / [id number] Insurance [employer] OPEN ACCESS MEDICARE [employer] OPEN ACCESS Advance Directives For more information, please contact: [phone] * Full Code (Latest Code Status on File) Date Activated Date Inactivated Comments 09/26/2022 12:13 PM 09/27/2022 8:55 PM * Full Code Date Activated Date Inactivated Comments 02/14/2022 1:25 PM 02/16/2022 5:48 PM Care Teams Metal Control Worker Relationship Specialty Start Date End Date Kleber Davis MD PCP - General Internal Medicine 12/18/21 Narciso Hernandez MD [address] [facility] [address] [address] Consulting Physician Orthopedic Surgery 02/15/22
--- NOTE | 2025-01-02 14:44 | ECG_ITS ---
Test Date: 2025-01-02 15:09:06 Measurements Intervals [place] Rate: 64 P: 47 [place]: 177 QRS: 19 QRSD: 88 T: 54 QT: 403 QTc: 417 Interpretive Statements SINUS RHYTHM Compared to ECG 01/02/2025 11:57:16 No significant changes Electronically Signed On 01-03-2025 16:33:20 CDT by Víctor Carson M.D.
--- NOTE | 2025-01-02 14:49 | ED.CHESTPAIN ---
HPI - Chest Pain General Chief Complaint: Chest Pain Stated Complaint: chest pain since physician coding specialist Time Seen by Provider: 01/02/25 14:02 History of Present Illness HPI narrative: 69-year-old male with history of hypertension and hyperlipidemia presents to the ED with family at bedside for chest pain. Patient states between to 4:00 a.m. he woke up in the middle night with a sharp pain to the right anterior aspect of his chest that lasted approximately one second. He states he did not have any pain again until around 10:30 this morning while he was lying in the recliner he again felt a sharp pinpoint pain in the right anterior aspect of his chest that lasted one second. He has not had any pain since but wanted to be evaluated in the emergency department. He denies associated shortness of breath, diaphoresis, nausea or vomiting, lower extremity edema, cough or congestion, hemoptysis, dizziness. He has never had this happen to him before. He denies cardiac or stroke history. He has never had a stress test but is supposed to schedule what sounds like a nuclear medicine cardiac stress test tomorrow per his PCP. He states his recently underwent a CABG about 9 weeks ago and his PCP figured that the patient should have stress test performed although he has not been having any cardiac symptoms. He has never had to see a support engineer. He denies first-degree family history of cardiac disease with states his grandmother had history of stroke. He denies recent surgeries or hospitalizations, history of VTE, numbness or tingling to his extremities, abdominal pain. Denies smoking history. Patient is currently asymptomatic and states he feels ?fine?. Related Data Home Medications ?Medication ?Instructions ?Recorded ?Confirmed ?Last Taken ?Type atorvastatin 40 mg tablet (Lipitor) 40 mg PO HS 05/16/23 06/13/23 Unknown History loratadine 10 mg tablet (Allergy 1 mg PO DAILY 05/16/23 06/13/23 Unknown History Relief (loratadine)) Allergies Allergy/AdvReac Type Severity Reaction Status Date / Time No Known Allergies Allergy Verified 01/02/25 11:51 Review of Systems Review of Systems: All systems reviewed & are unremarkable except as noted in HPI and below PMFSH Past Medical History Medical History Hyperlipidemia Hypertension Surgical History Surgical History History of extraction of renal calculus History of total knee arthroplasty Bilateral H/O colonoscopy with polypectomy Family History Family History Mother Chronic obstructive pulmonary disease Father Liver cancer Social History Social History Social History: The patient is and lives with his . They have 1 child together. He is retired. His is the durable power attorney at law for healthcare. Code status full code Smoking status: Never smoker Alcohol intake: never Substance use: never Lack of Transportation: No Lack of Food: Never True Current Housing: I Have Housing Concerned About Future Housing: No Difficulty Paying Gas/Electric Bills: No Difficulty Paying for Meds: No Currently Unemployed: No Education: High School Diploma/GED Difficulty w/ Childcare or Family Care: No Spiritual care concerns: No Exam Narrative: GENERAL: Well-appearing, well-nourished, and in no acute distress. HEAD: Normocephalic, atraumatic. EYES: EOMI. ENT: Nares clear, no rhinorrhea or epistaxis. Mucous membranes moist. NECK: Supple. CHEST: Clear to auscultation. No respiratory distress. HEART: Regular rate and rhythm. No murmur heard. Normal peripheral pulses. ABDOMEN: Soft, nontender, nondistended, normal active bowel sounds. EXTREMITIES: Normal range of motion. No edema. Negative Homans bilaterally SKIN: Warm, dry, no rash. NEURO: No focal deficits. Alert and oriented x3. Strength 5/5 in BUE and BLE, sensation intact throughout Course Vital Signs Vital signs: Vital Signs Temperature 97 F L 01/02/25 12:01 Pulse Rate 70 01/02/25 12:01 Respiratory Rate 16 01/02/25 12:01 Blood Pressure 156/74 H 01/02/25 12:01 Pulse Oximetry 100 01/02/25 12:01 Oxygen Delivery Room Air 01/02/25 12:01 Temperature 97 F L 01/02/25 12:01 Pulse Rate 65 01/02/25 16:12 Respiratory Rate 16 01/02/25 16:12 Blood Pressure 137/86 01/02/25 16:12 Pulse Oximetry 100 01/02/25 16:12 Oxygen Delivery Room Air 01/02/25 12:01 MDM - Chest Pain MDM Narrative Medical decision making narrative: 69-year-old male with history of hypertension and hyperlipidemia presents to the emergency department for 2 episodes of sudden onset sharp right anterior chest pain, occurring at rest, lasting one second each time. Vitals with elevated blood pressure of 156/74, otherwise unremarkable. Patient is resting comfortably in exam bed and is asymptomatic. EKG shows normal sinus rhythm with rate of 67 ppm, normal VA interval, normal QRS duration, normal QTC, no ischemic changes. Troponin is undetectable x2. CBC without leukocytosis or anemia. Chemistries are unremarkable. Lipase normal. Chest x-ray shows moderate hyperinflation with no active cardiopulmonary disease. D-dimer elevated 1.15, therefore CTA chest PE obtained Patient updated on results. Heart score is 3. He is anxious about his health. He was educated that his workup here is reassuring, however I do recommend he continue to follow with his PCP as well as the support engineer I have referred him to for further investigation due to diagnostic uncertainty. All questions answered with family at bedside. Discussed strict ED return precautions. He is agreeable with the plan verbalized understanding. Discharged in stable condition. Lab Data 01/02/25 12:06 01/02/25 12:06 Labs: Lab Results 01/02/25 01/02/25 Range/Units 12:06 14:41 WBC 8.1 (4.5-10.0) K/mm3 RBC 4.54 L (4.6-6.20) M/mm3 Hgb 14.4 D (14.0-18.0) g/dL Hct 42.6 (42.0-52.0) % MCV 93.8 (80-100) fl MCH 31.7 (26-34) pg MCHC 33.8 (32-36) g/dl RDW 13.2 (11.5-14.5) % Plt Count 205 D (150-375) k/mm3 MPV 9.6 (7.4-10.4) fl Immature Gran % (Auto) 0.2 (0-0.5) % Neut % (Auto) 65.5 (45.5-73.1) % Lymph % (Auto) 24.4 (18.3-44.2) % [place] % (Auto) 7.0 (2.6-8.5) % Eos % (Auto) 2.5 (0-4.4) % Baso % (Auto) 0.4 (0.2-1.2) % Lymph # (Auto) 1.98 (0.9-3.2) K/mm3 [place] # (Auto) 0.6 (0.1-0.6) K/mm3 Eos # (Auto) 0.2 (0-0.3) K/mm3 Baso # (Auto) 0.0 (0.0-0.1) K/mm3 Abs Immat Gran (auto) 0.02 (0.00-0.031) K/mm3 Absolute Neuts (auto) 5.3 (1.3-6.7) K/mm3 Absolute Nucleated RBC 0.000 (0.0-0.012) K/mm3 Nucleated RBC % 0.0 (0.0-0.2) % PT 12.7 (11.1-14.7) Seconds INR 0.9 APTT 24.1 (22.3-36.8) Seconds D-Dimer 1.15 H (<0.48) ug/mL Sodium 138 (137-145) mmol/L Potassium 4.0 (3.4-5.0) mmol/L Chloride 99 (98-107) mmol/L Carbon Dioxide 29 (22-30) mmol/L Anion Gap 10 (4-12) mmol/L BUN 20 D (9-20) mg/dL Creatinine 1.17 (0.7-1.3) mg/dL Estim Creat Clear Calc 62 ml/min Estimated GFR > 60 (59 - ) Glucose 142 H (65-110) mg/dL Calcium 9.9 (8.4-10.2) mg/dL Total Bilirubin 0.8 (0.2-1.3) mg/dL AST 30 (17-59) U/L ALT 35 (6-50) U/L Alkaline Phosphatase 86 (38-126) U/L Troponin I < 0.012 < 0.012 (0.000-0.034) ng/mL Total Protein 8.0 (6.3-8.2) g/dL Albumin 4.5 (3.5-5.1) g/dL Lipase 136 (23-300) U/L Discharge Plan Discharge Clinical Impression: Atypical chest pain Patient Disposition: Home, Self-Care Condition: Stable Instructions: Antibiotic Form, Chest Pain (ED) Additional Instructions: You were evaluated in the emergency department for chest pain. Your workup here is reassuring. Please continue to follow closely with her primary care provider and support engineer I have referred you to. Return to the emergency department if you develop new or worsening symptoms. Patient Language: American Prescriptions: No Action atorvastatin [Lipitor] 40 mg Tablet 40 mg PO HS loratadine [Allergy Relief (loratadine)] 10 mg Tablet 1 mg PO DAILY lisinopril 20 mg Tablet 20 mg PO HS Qty: 30 0RF pantoprazole 40 mg Tablet,Delayed Release (Dr/Ec) 40 mg PO Q12HR Qty: 60 0RF Follow-up/Referrals: Ryan,MD Kleber [Primary Care Provider] - Anderson Vidal MD [Physician] - Quality HEART score for chest pain patients History: slightly suspicious ECG: normal Age: > or = to 65 years Risk factors: 1 or 2 risk factors Troponin: < or = to 1x normal limit Heart score: 3
[2025-01-02 15:07] LABS: Troponin I < 0.012 ng/mL (0.000-0.034)
[2025-01-02 15:31] LABS: D Dimer 1.15 ug/mL (<0.48)
[2025-01-02 16:12] VITALS: BP 137/86; PULSE 65; RESP 16; O2SAT 100
--- NOTE | 2025-01-02 16:37 | PC.NURSE ---
CT notified that pt. has an IV and is ready.
[2025-01-02 18:14] VITALS: BP 144/86; PULSE 74; RESP 16; O2SAT 98
== END 2025-01-02 18:15 | disposition home or self-care (01) ==
PROVIDERS: Emergency Medicine; Emergency Provider Physician Assistant; PCP Internal Medicine
DX: R07.89 Other chest pain (principal); I10 Essential (primary) hypertension; E78.5 Hyperlipidemia, unspecified; Z96.653 Presence of artificial knee joint, bilateral
CPT/HCPCS: 36415; 71046; 71275; 80053; 83690; 84484; 85025; 85380; 85610; 85730; 93005; 99284; A9270; Q9967